=== PATIENT | female | born 1980 | race African-American/Black ===

== ENCOUNTER 2019-12-12 17:07 | Emergency (ER) | payer OTHER, MEDICAID, SELFPAY ==
[2019-12-12 17:09] VITALS: BP 126/82; PULSE 94; RESP 16; TEMP 36.9; O2SAT 100
--- NOTE | 2019-12-12 17:24 | PC.NURSE ---
Pt states she was given amoxicillin a week ago for ear infection and started getting warm, nausea, decreased appetite. PCP told pt to stop taking due to she has allergy to it. Pt states she still has ear pain.
--- NOTE | 2019-12-12 17:49 | ED.EAR ---
HPI - Ear Problem General Chief complaint: Ear Stated complaint: BILATERAL EAR INFECTIONS Time Seen by Provider: 12/12/19 17:15 Source: RN notes reviewed History of Present Illness HPI Narrative: Patient presents emergency department from home for ear pain. Patient states that she had ear pain that began approximately 6 days ago. States the pain is worse on the left with only mild irritation on the right. She states she had gone to urgent care and was diagnosed with an ear infection and started on Augmentin. States that the ear pain continued and is worse in the left ear. She denies any fevers or chills rhinorrhea sore throat cough or any other symptoms. States she called her PCPs office and was told to stop the Augmentin and to go the emergency department for further evaluation. Patient denies any trauma or injury denies any other symptoms at this time Related Data Allergies Allergy/AdvReac Type Severity Reaction Status Date / Time amoxicillin Allergy Weakness Verified 12/12/19 17:13 Review of Systems Review of Systems: Narrative: Gen.: Denies fevers or chills Eyes: Denies eye pain or visual change ENT: Denies congestion Respiratory: Denies shortness of breath or cough CV: Denies chest pain or palpitations GI: Denies abdominal pain nausea, emesis or diarrhea Musculoskeletal: Denies back pain or muscle pain Neuro: Denies headache or numbness Skin: Denies rash Except as documented, all other systems reviewed and negative [facility] Past Medical History Medical History (Updated 12/12/19 @ 17:52 by Reza Garcia DO) Patient denies significant medical history Social History Social History (Updated 12/12/19 @ 17:51 by Reza Garcia DO) Smoking status: Never smoker Gender identity (if verbalized by the patient): Female Exam Narrative: Exam Narrative: APPEARANCE: No acute distress, nontoxic, resting in bed EYES: EOMI HEENT: Normocephalic, atraumatic, right external ear canals normal appearance the right TM is normal appearance, the left ear has a bug in the ear canal that is farmer-like in appearance. Does appear at this time. The TM is normal there is mild erythema of the ear canal around the region of this bug, nares patent oromucosa moist erythema exudate posterior pharynx RESPIRATORY: No respiratory distress Clear to auscultation bilaterally with no rhonchi wheezing or rales. CARDIOVASCULAR: Regular rate and rhythm without murmurs rubs or gallops. ABDOMINAL: Soft, nontender, MUSCULOSKELETAl: Moves all extremities. NEURO: Awake and alert. Following commands, speech normal, no focal deficits SKIN:: Warm, dry. No rashes lesions or abrasions PSYCHIATRIC: Normal affect/mood, Course Course Emergency Course: Procedure note: The left ear was irrigated by myself with warm water the patient's bug was removed in pieces. Following this the ear was reevaluated no further debris of blood material was seen the TM was normal in appearance there is mild erythema of the canal Discussed with patient results of workup and diagnosis. Discussed need for follow-up with primary care, proper use of medication, and reasons to return to the emergency department. Patient understands and agrees to current treatment plan Vital Signs Vital signs: Vital Signs Temperature 98.4 F 12/12/19 17:09 Pulse Rate 94 12/12/19 17:09 Respiratory Rate 16 12/12/19 17:09 Blood Pressure 126/82 12/12/19 17:09 Pulse Oximetry 100 12/12/19 17:09 Temperature 98.4 F 12/12/19 17:09 Pulse Rate 94 12/12/19 17:09 Respiratory Rate 16 12/12/19 17:09 Blood Pressure 126/82 12/12/19 17:09 Pulse Oximetry 100 12/12/19 17:09 Medical Decision Making Vital Signs Vital Signs: Vital Signs Temperature 98.4 F 12/12/19 17:09 Pulse Rate 94 12/12/19 17:09 Respiratory Rate 16 12/12/19 17:09 Blood Pressure 126/82 12/12/19 17:09 Pulse Oximetry 100 12/12/19 17:09 Temperature 98.4 F 12/12/19 17:09 Pulse Ra
== END 2019-12-12 18:01 | disposition home or self-care (01) ==
PROVIDERS: Emergency Provider Emergency Medicine; PCP Physician Assistant
DX: T16.2XXA Foreign body in left ear, initial encounter (principal)
CPT/HCPCS: 99283

== ENCOUNTER 2020-06-07 16:19 | Emergency (ER) | payer OTHER, MEDICAID, SELFPAY ==
[2020-06-07 16:25] VITALS: BP 113/81; PULSE 90; RESP 16; TEMP 35.9; O2SAT 100
[2020-06-07 16:32] VITALS: BP 118/80; PULSE 97; RESP 14; O2SAT 100
[2020-06-07 16:49] LABS: Basophils Percent Auto 0.5 % (0.2-1.2); Eosinophils Absolute Auto 0.1 K/mm3 (0-0.3); Eosinophils Percent Auto 1.5 % (0-4.4); Hematocrit 36.8 % (37.0-47.0); Immature Granulocyte Absolute 0.02 K/mm3 (0.00-0.031); Immature Granulocyte Percent A 0.3 % (0-0.5); Lymphocytes Absolute Auto 3.12 K/mm3 (0.9-3.2); Mean Corpuscular HGB Conc 32.6 g/dl (32-36); Mean Corpuscular Hemoglobin 27.4 pg (26-34); Mean Platelet Volume 8.9 fl (7.4-10.4); Monocytes Absolute Auto 0.4 K/mm3 (0.1-0.6); Monocytes Percent Auto 5.1 % (2.6-8.5); Neutrophils Absolute Auto 4.3 K/mm3 (1.3-6.7); Neutrophils Percent Auto 53.6 % (45.5-73.1); Platelet Count Result 393 k/mm3 (150-375); Red Blood Count 4.38 M/mm3 (4.2-5.4); Red Cell Distribution Width 13.6 % (11.5-14.5)
--- NOTE | 2020-06-07 17:05 | ED.FEMALEGU ---
HPI - Female Genitourinary General Chief complaint: Vaginal Bleeding Stated complaint: on my menstrual cycle, bleeding through pads. Time Seen by Provider: 06/07/20 16:33 Source: patient Limitations: no limitations History of Present Illness HPI Narrative: 40 f c/o heavy vb x 2 days prev menses was wnl and on time does not think she is no pain no ocp/iud/implants Related Data Home Medications Medication Instructions Recorded Confirmed ipratropium bromide [Atrovent HFA] 1 puff INHALATION QID 06/07/20 loratadine [Claritin] 10 mg PO DAILY 06/07/20 Allergies Allergy/AdvReac Type Severity Reaction Status Date / Time amoxicillin Allergy Weakness Verified 12/12/19 17:13 Review of Systems Review of Systems: All systems reviewed & are unremarkable except as noted in HPI and below Constitutional: Constitutional: Denies chills, Denies fatigue, Denies fever(s), Denies headache(s) and Denies weakness Eyes: Eyes: Reports no additional eye complaints and Denies change in vision ENT: Denies headache(s) and Denies epistaxis Cardiovascular: Cardiovascular: Denies chest pain, Denies leg edema, Denies palpitations and Denies dyspnea Respiratory: Respiratory: Denies cough Gastrointestinal: Gastrointestinal: Denies abdominal pain, Denies diarrhea, Denies nausea and Denies vomiting Genitourinary: Genitourinary: Reports abnormal vaginal bleeding, Denies hematuria, Denies urinary frequency, Denies dysuria and Reports vaginal discharge Musculoskeletal: Musculoskeletal: Denies deformity, Denies arthralgias, Denies joint swelling, Denies muscle weakness and Denies numbness Integumentary/Breasts: Skin/Breast: Denies rash and Denies wounds Neurologic: Denies headache(s) and Denies weakness Psychiatric: Psychiatric: Reports no additional psychiatric complaints Endocrine: Endocrine: Denies fatigue and Denies palpitations Hematologic/Lymphatic: Hematologic/Lymphatic: Denies easy bleeding and Denies easy bruising Allergic/Immunologic: Allergic/Immunologic: Denies wheezing PMFSH Past Medical History Medical History (Updated 06/07/20 @ 17:51 by Nirmal Flynn MD) Patient denies significant medical history Social History Social History (Updated 12/12/19 @ 17:51 by Reza Garcia DO) Smoking status: Never smoker Gender identity (if verbalized by the patient): Female Exam Const: General: no acute distress, well developed and awake Nutritional Appearance: well nourished Orientation/consciousness: patient oriented x3 (alert) Limitations: no limitations HENMT: Head: normocephalic and atraumatic Ears: external ears normal General nose exam: No nasal discharge present and no epistaxis Face and sinus: face symmetric Eyes: Conjunctivae: conjunctivae normal Sclera: sclerae normal EOM: EOMs intact bilaterally Neck: Neck: normal visual inspection, supple and no JVD Chest: Chest palpation & inspection: deferred Resp: Effort & Inspection: normal respiratory effort Auscultation: other (BS =) Cardio: Heart sounds: no gallops GI: Inspection: normal to inspection GI Palp: Yes Soft to palpation and No Tenderness to palpation present (GI) : General: Yes no CVA tenderness Speculum Exam - Vagina: vaginal bleeding (small amount, easily clears) Bimanual Exam- Adnexa, other: no masses and no tenderness Other: uterus size grossly wnl Back/Spine/Pelvis: Thoracic/Lumbar Spine: thoracic and lumbar spine normal to inspection Skin: General skin exam: normal color and no rashes or lesions noted Neuro: General: patient oriented x3 (alert) and moves all extremities Cranial nerves: Yes facial symmetry Speech: normal speech Extrem: General: normal to inspection, full ROM and no pedal edema Psych: Affect: normal affect Course Vital Signs Vital signs: Vital Signs Temperature 35.9 C L 06/07/20 16:25 Pulse Rate 90 06/07/20 16:25 Respiratory Rate 16 06/07/20 16:25 Blood Pressure 113
[2020-06-07 17:24] VITALS: BP 115/79; PULSE 72
[2020-06-07 17:27] VITALS: BP 115/86; PULSE 73
[2020-06-07 17:28] VITALS: BP 113/87; PULSE 76
--- NOTE | 2020-06-07 17:49 | PC.NURSE ---
Pelvic and bimanual exam per Dr. Flynn with this RN in attendance. Pt tolerated procedure well.
== END 2020-06-07 18:00 | disposition home or self-care (01) ==
PROVIDERS: Emergency Provider Emergency Medicine; PCP Physician Assistant
DX: N93.9 Abnormal uterine and vaginal bleeding, unspecified (principal)
CPT/HCPCS: 36415; 81025; 85025; 99284

== ENCOUNTER 2021-02-21 23:09 | Emergency (ER) | payer OTHER, SELFPAY ==
--- NOTE | ~2021-02-21 | XR_ITS ---
EXAMINATION: XR chest 2V DATE: 02/21/2021 23:43 INDICATION: Right-sided chest pain. TECHNIQUE: Frontal and lateral views of the chest were obtained. COMPARISON: Chest single view 07/31/2018 FINDINGS: The chest demonstrates clear lungs without pneumonia, pleural effusion, or pneumothorax. Th e heart size is normal. IMPRESSION: 1. No acute cardiopulmonary disease. Reviewed, dictated and finalized at location A.
[2021-02-21 23:15] VITALS: BP 126/70; PULSE 91; RESP 16; TEMP 36.2; O2SAT 100
--- NOTE | 2021-02-21 23:17 | ECG_ITS ---
Measurements Intervals [place] Rate: 89 P: 36 [place]: 145 QRS: 11 QRSD: 104 T: 8 QT: 346 QTc: 422 Interpretive Statements SINUS RHYTHM EARLY PRECORDIAL R/S TRANSITION NONSPECIFIC T-WAVE ABNORMALITY- ANT/INF LEADS BORDERLINE ECG Electronically Signed On 02-22-2021 6:28:51 CDT by Latrell Jamil D.O.
[2021-02-21 23:37] LABS: Basophils Percent Auto 0.1 % (0.2-1.2); Hematocrit 31.5 % (37.0-47.0); Hemoglobin 9.8 g/dL (12.0-15.0); Immature Granulocyte Absolute 0.07 K/mm3 (0.00-0.031); Immature Granulocyte Percent A 0.7 % (0-0.5); Lymphocytes Absolute Auto 1.29 K/mm3 (0.9-3.2); Lymphocytes Percent Auto 13.6 % (18.3-44.2); Mean Corpuscular HGB Conc 31.1 g/dl (32-36); Mean Corpuscular Hemoglobin 23.2 pg (26-34); Mean Corpuscular Volume 74.6 fl (80-100); Mean Platelet Volume 8.6 fl (7.4-10.4); Monocytes Absolute Auto 0.3 K/mm3 (0.1-0.6); Monocytes Percent Auto 3.2 % (2.6-8.5); Neutrophils Absolute Auto 7.8 K/mm3 (1.3-6.7); Neutrophils Percent Auto 82.4 % (45.5-73.1); Platelet Count Result 539 k/mm3 (150-375); Red Blood Count 4.22 M/mm3 (4.2-5.4); Red Cell Distribution Width 16.1 % (11.5-14.5); White Blood Count 9.5 K/mm3 (4.5-10.0)
[2021-02-21 23:47] LABS: Anion Gap 10 mmol/L (8-16); Blood Urea Nitrogen 10 mg/dL (7-17); Calcium 9.7 mg/dL (8.4-10.2); Carbon Dioxide 26 mmol/L (22-30); Chloride 104 mmol/L (98-107); Estimated Glomerular Filt Rate > 60; Glucose 144 mg/dL (65-110); INR 0.9; Prothrombin Time 11.8 Seconds (11.1-14.7); Sodium 140 mmol/L (137-145)
[2021-02-21 23:48] LABS: Partial Thromboplastin Time 24.9 SECONDS (22.3-36.8)
[2021-02-22 00:02] LABS: Troponin I < 0.012 ng/mL (0.000-0.034)
[2021-02-22 01:21] VITALS: PULSE 87; O2SAT 100
[2021-02-22 01:24] VITALS: BP 112/74; PULSE 103; RESP 17; TEMP 36.7; O2SAT 100
[2021-02-22] MEDS: ASPIRIN 81 MG CHEWABLE TABLET 324 MG PO (01:28)
[2021-02-22 02:01] VITALS: BP 117/75; PULSE 78; RESP 18; O2SAT 100
[2021-02-22 02:16] VITALS: BP 115/83; PULSE 82; RESP 19; O2SAT 100
[2021-02-22 02:42] LABS: Troponin I < 0.012 ng/mL (0.000-0.034)
--- NOTE | 2021-02-22 02:43 | ED.GENADULT ---
HPI - General Adult General Chief complaint: Chest Pain Stated complaint: back pain Time Seen by Provider: 02/22/21 01:45 History of Present Illness HPI narrative: Patient 40-year-old female presents emerged part with chief complaint of chest pain patient reports that the pain is a pressure-like sensation but also reports there is a sharp component patient reports is worse with deep breath and worse with movement. The patient reports recently she was seen in urgent care after she was having pain in her ears started on a course of prednisone and also a course of an antibiotic. Patient reports that she has been taking steroids she has become jittery and reports that it is difficult to sleep at night. Related Data Home Medications Medication Instructions Recorded Confirmed ipratropium bromide [Atrovent HFA] 1 puff INHALATION QID 06/07/20 loratadine [Claritin] 10 mg PO DAILY 06/07/20 Allergies Allergy/AdvReac Type Severity Reaction Status Date / Time amoxicillin Allergy Weakness Verified 02/22/21 01:29 peanut Allergy Hives Verified 02/22/21 01:29 Review of Systems Review of Systems: A 10 system review of systems was completed on the patient and is negative except for what is stated in the HPI. Nursing and ancillary documentation was reviewed. [facility] Past Medical History Medical History Patient denies significant medical history Social History Social History Smoking status: Never smoker Gender identity (if verbalized by the patient): Female Exam Narrative: GENERAL: Well-appearing, well-nourished, and in no acute distress. HEAD: Normocephalic, atraumatic. EYES: PERRLA and EOMI. ENT: Nares clear, no rhinorrhea or epistaxis. Mucous membranes moist. NECK: Supple. CHEST: Clear to auscultation. No respiratory distress. Chest wall is tender to palpation in the sternal border HEART: Regular rate and rhythm. No murmur heard. Normal peripheral pulses. ABDOMEN: Soft, nontender, nondistended, normal active bowel sounds. EXTREMITIES: Normal range of motion. No edema. SKIN: Warm, dry, no rash. NEURO: No focal deficits. Alert and oriented x3. PSYCH: Normal mood and affect. Course Vital Signs Vital signs: Vital Signs Temperature 36.2 C L 02/21/21 23:15 Pulse Rate 91 02/21/21 23:15 Respiratory Rate 16 02/21/21 23:15 Blood Pressure 126/70 02/21/21 23:15 Pulse Oximetry 100 02/21/21 23:15 Temperature 36.7 C 02/22/21 01:24 Pulse Rate 103 H 02/22/21 01:24 Respiratory Rate 17 02/22/21 01:24 Blood Pressure 112/74 02/22/21 01:24 Pulse Oximetry 100 02/22/21 01:24 Medical Decision Making Vital Signs Vital Signs: Vital Signs Temperature 36.2 C L 02/21/21 23:15 Pulse Rate 91 02/21/21 23:15 Respiratory Rate 16 02/21/21 23:15 Blood Pressure 126/70 02/21/21 23:15 Pulse Oximetry 100 02/21/21 23:15 Temperature 36.7 C 02/22/21 01:24 Pulse Rate 103 H 02/22/21 01:24 Respiratory Rate 17 02/22/21 01:24 Blood Pressure 112/74 02/22/21 01:24 Pulse Oximetry 100 02/22/21 01:24 Lab Data Result diagrams: 02/21/21 23:27 02/21/21 23:27 Labs: Lab Results 02/21/21 02/21/21 02/21/21 Range/Units 23:27 23:27 23:27 WBC 9.5 (4.5-10.0) K/mm3 RBC 4.22 (4.2-5.4) M/mm3 Hgb 9.8 L (12.0-15.0) g/dL Hct 31.5 L (37.0-47.0) % MCV 74.6 L (80-100) fl MCH 23.2 L (26-34) pg MCHC 31.1 L (32-36) g/dl RDW 16.1 H (11.5-14.5) % Plt Count 539 H (150-375) k/mm3 MPV 8.6 (7.4-10.4) fl Immature Gran % (Auto) 0.7 H (0-0.5) % Neut % (Auto) 82.4 H (45.5-73.1) % Lymph % (Auto) 13.6 L (18.3-44.2) % [place] % (Auto) 3.2 (2.6-8.5) % Eos % (Auto) 0.0 (0-4.4) % Baso % (Auto) 0.1 L (0.2-1.2) % Lymph # (Auto) 1.29 (0.9-3.2) K/mm3 [place] # (Auto) 0.3 (0.
[2021-02-22 02:50] VITALS: BP 117/81; PULSE 79; RESP 17; O2SAT 100
== END 2021-02-22 02:52 | disposition home or self-care (01) ==
PROVIDERS: Emergency Provider Emergency Medicine; PCP Physician Assistant
DX: M94.0 Chondrocostal junction syndrome [Tietze] (principal); R94.31 Abnormal electrocardiogram [ECG] [EKG]
CPT/HCPCS: 36415; 71046; 80048; 84484; 85025; 85610; 85730; 93005; 99284; A9270

== ENCOUNTER 2021-04-18 08:00 | Outpatient (RCR) | payer OTHER, SELFPAY ==
--- NOTE | 2021-03-23 13:50 | PTOPEVAL ---
Thank you for referring Natalie Gillette to [facility].? The patient is scheduled to be seen for therapy? 2x/week for 8 weeks. Please review, sign, date and return this plan of care KARLENE. I agree with and certify that the following plan of care is medically necessary. Referring Physician Date Attending Provider: Boogie Cavazos, PA Diagnosis thoracic back pain Onset 2 months Cause unknow Additional Evaluation Detail history of falling down steps 06/11 with rib fracture Subjective Information She reports progression of mid Query Text:As Reported By Patient/ back/lateral flank pain for Family the past year with increased symptoms for during the past 2 months. She reports limitations with reaching, lifting, sleeping, walking, standing and sitting due to pain. She is unable to sleep on right side due to pain. 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 She is not required to perform a lot of lifting normally. Pain Assessment Right Back Reported Pain Level 7 Pain Description Aching,Burning,Radiating, Tender on Palpation Pain Radiation Right Arm Pain Frequency Chronic,Continuous Lowest Pain Intensity 7 Greatest Pain Intensity 10 Pain Aggravating Factors ADL's,Bending,Exercise/ Activity,Lifting,Palpation, Sitting,Stair Climbing,Walking ,Weight Bearing/Standing Pain Behaviors Guarding,Restless Cervical and Lumbar ROM Lumbar ROM Lumbar Flexion Active Floor:Hands to: Lumbar Comments painful trunk flex in seated position trunk ext lateral shift to right 50% trunk rotation pain with trunk motions Upper Extremity Range of Motion General Upper Extremity Range of Motion Reason Not Measured WNL/Left,WNL/Right Lower Extremity Range of Motion General Lower Extremity Range of Motion Reason Not Measured WNL/Left,WNL/Right Cervical and Lumbar Muscle Testing Lumbar Strength Lumbar Functional Strength Comments unable to maintain trunk in midline with seated marching and single leg stance Lower Extremity Muscle Strength Testing Hip Strength Right Hip F
--- NOTE | 2021-03-30 08:39 | PCPTNOTE ---
Patient did not show up for scheduled appointment this date.
--- NOTE | 2021-04-01 09:17 | PCPTNOTE ---
Patient did not show up for scheduled appointment this date. Called & patient stated she just went straight home from work & forgot.
--- NOTE | 2021-04-13 10:47 | PCPTNOTE ---
Patient did not show up for scheduled appointment this date. Attempted to call pt regarding her next visit, but no answer reservations specialist. This is her 3rd NS. If she does not show for her appt on 04/18 will DC due to repeated NS.
--- NOTE | 2021-04-20 08:22 | PCPTNOTE ---
Patient did not show up for scheduled appointment this date. Called and had to leave a message.
--- NOTE | 2021-04-28 11:52 | PCPTNOTE ---
Contacted pt who requested her re-eval be rescheduled. Next open appt was for May 16.
--- NOTE | 2021-05-16 12:44 | PCPTNOTE ---
Patient did not show up for scheduled appointment this date. Contact pt regarding her no show today, states she forgot. Pt has improved symptoms with her HEP. Recommended she cont with HEP and f/u with her MD as needed.
--- NOTE | 2021-05-16 12:45 | PCPTNOTE ---
Admitting Provider: Attending Provider: Boogie Cavazos, SARA Patient:Natalie Gillette Date of :1980 Physical Therapy Discharge Summary Patient has not returned for any further treatments since 04/18/2021, therefore she will be discharged at this time. Patient?s initial visit was on 03/23/2021 12:30 and she had a total of 5 visits with 7 no show/cancelled visits. The goals have been not met due to limited attendance of therapy. She has been provided home exercises to continue at home for her symptoms. Thank you for referring this patient to [facility]. Please review, sign, date and return this discharge summary KARLENE. I have been updated about the patient's current status and I agree with discharge from the above service at this time. Referring Physician Date
== END 2021-05-16 15:28 | disposition home or self-care (01) ==
LOC: ANHPT 08:00
PROVIDERS: PCP Physician Assistant; Visit Provider Physician Assistant
DX: M54.6 Pain in thoracic spine (principal)
CPT/HCPCS: 97014; 97110; 97140; 97162; G0283

== ENCOUNTER 2023-04-17 04:07 | Emergency (ER) | payer OTHER, SELFPAY ==
--- NOTE | ~2023-04-17 | XR_ITS ---
EXAMINATION: XR chest 2V DATE: 04/17/2023 04:53 INDICATION: Cough. Chest pain. TECHNIQUE: Frontal and lateral views of the chest were obtained. COMPARISON: Chest 2 views 02/21/2021 FINDINGS: There is no pneumonia, pleural effusion, or pneumothorax. Cardiomegaly is noted. There is m ild chronic anterior wedging of a midthoracic vertebral body. IMPRESSION: 1. Cardiomegaly. Reviewed, dictated and finalized at location A. IMPRESSION: 1. Cardiomegaly.
[2023-04-17 04:09] VITALS: BP 111/85; PULSE 93; RESP 16; TEMP 36.3; O2SAT 100
--- NOTE | 2023-04-17 04:32 | ECG_ITS ---
Measurements Intervals [place] Rate: 87 P: 14 [place]: 125 QRS: -1 QRSD: 83 T: -4 QT: 344 QTc: 414 Interpretive Statements SINUS RHYTHM LOW QRS VOLTAGE IN PRECORDIAL LEADS T WAVE ABNORMALITY- CONSIDER ANTERIOR ISCHEMIA ABNORMAL ECG COMPARED TO ECG 02/21/2021 23:22:50 NO SIGNIFICANT CHANGES Electronically Signed On 04-17-2023 6:35:40 CDT by Latrell Jamil D.O.
--- NOTE | 2023-04-17 04:57 | ED.GENADULT ---
HPI - General Adult General Chief complaint: Upper Respiratory Infection Stated complaint: Chest pain from coughing, sore throat, runny nose Time Seen by Provider: 04/17/23 04:25 History of Present Illness HPI narrative: Patient is a 42-year-old female who presents the emergency department with chief complaint of runny nose cough sore throat chest pain with coughing since when she received a flu shot. Patient states that she has history of asthma and reports that she is also had some shortness of breath for some period of time and is currently wearing an event monitor to evaluate for possible dysrhythmia patient reports no prior history of congestive heart failure reports no prior cardiac disease and reports that she had a nonproductive cough with this. The patient reports that the symptoms started after receiving a influenza vaccine Related Data Home Medications Medication Instructions Recorded Confirmed ipratropium bromide 17 1 puff inhalation QID 06/07/20 mcg/actuation HFA aerosol inhaler (Atrovent HFA) loratadine 10 mg tablet (Claritin) 10 mg PO DAILY 06/07/20 Allergies Allergy/AdvReac Type Severity Reaction Status Date / Time amoxicillin Allergy Weakness Verified 02/22/21 01:29 peanut Allergy Hives Verified 02/22/21 01:29 Review of Systems Review of Systems: A 10 system review of systems was completed on the patient and is negative except for what is stated in the HPI. Nursing and ancillary documentation was reviewed. PMFSH Past Medical History Medical History Patient denies significant medical history Social History Social History Smoking status: Never smoker Gender identity (if verbalized by the patient): Female Exam Narrative: GENERAL: Well-appearing, well-nourished, and in no acute distress. HEAD: Normocephalic, atraumatic. EYES: PERRLA and EOMI. ENT: Nares clear, no rhinorrhea or epistaxis. Mucous membranes moist. NECK: Supple. CHEST: Clear to auscultation. No respiratory distress. HEART: Regular rate and rhythm. No murmur heard. Normal peripheral pulses. ABDOMEN: Soft, nontender, nondistended, normal active bowel sounds. EXTREMITIES: Normal range of motion. No edema. SKIN: Warm, dry, no rash. NEURO: No focal deficits. Alert and oriented x3. PSYCH: Normal mood and affect. Course Course Emergency Course: Differential diagnosis includes viral syndrome, pneumothorax, strep pharyngitis, pneumonia, ACS EKG showed no acute ischemic changes Chest x-ray showed no pneumothorax Strep was negative COVID was positive influenza was negative Given the patient does have prior risk factors of asthma the patient was offered a prescription for Paxlovid and the patient has excepted Vital Signs Vital signs: Vital Signs Temperature 36.3 C L 04/17/23 04:09 Pulse Rate 93 04/17/23 04:09 Respiratory Rate 16 04/17/23 04:09 Blood Pressure 111/85 04/17/23 04:09 Pulse Oximetry 100 04/17/23 04:09 Oxygen Delivery Room Air 04/17/23 04:09 Temperature 36.3 C L 04/17/23 04:09 Pulse Rate 93 04/17/23 04:09 Respiratory Rate 16 04/17/23 04:09 Blood Pressure 111/85 04/17/23 04:09 Pulse Oximetry 100 04/17/23 04:09 Oxygen Delivery Room Air 04/17/23 04:22 Medical Decision Making MDM Narrative Medical decision making narrative: Differential diagnosis includes upper respiratory infection, pneumothorax, strep, dysrhythmia, EKG was obtained which showed sinus rhythm rate of [address] elevation or ST depression Chest x-ray showed no widened mediastinum no pneumothorax Vital Signs Vital Signs: Vital Signs Temperature 36.3 C L 04/17/23 04:09 Pulse Rate 93 04/17/23 04:09 Respiratory Rate 16 04/17/23 04:09 Blood Pressure 111/85 04/17/23 04:09 Pulse Oximetry 100 04/17/23 04:09 Oxygen Delivery Room
[2023-04-17 04:58] LABS: Strep Group A RT-PCR NOT DETECTED (Negative)
[2023-04-17 05:09] LABS: Influenza A QL RT-PCR Negative (Negative); Influenza B QL RT-PCR Negative (Negative); RSV RNA, RT-PCR Negative (Negative); SARS-CoV-2 RNA PCR Positive (Negative)
== END 2023-04-17 05:23 | disposition home or self-care (01) ==
PROVIDERS: Emergency Provider Emergency Medicine; PCP Physician Assistant
DX: U07.1 COVID-19 (principal); Z79.51 Long term (current) use of inhaled steroids
CPT/HCPCS: 71046; 87637; 87651; 93005; 99283

== ENCOUNTER 2023-06-15 10:30 | Outpatient (RCR) | payer OTHER, SELFPAY ==
--- NOTE | 2023-05-28 11:44 | PTOPEVAL1 ---
Assessment and note entered by Zoran Lopez, PT, DPT Evaluation Information Assessment Status Evaluation Diagnosis upper thoracic pain and lumbar pain Subjective Information Pt states one night about 7 months she was at work and was lifting something heavy and her back has been hurting every since. She states she will take a Tylenol and this will help for a little bit. Pt also reports R arm pain and numbness, that has been going on for over a year. 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 Reported Pain Level Pain Score 7,7: Self Report Assessment PT Clinical Summary Natalie presents to therapy today for her initial evaluation with a diagnosis of lower back pain and cervical radiculopathy. Pt demonstrates good strength throughout her armando UEs and LEs. She demonstrates pain with passive hip flexion and with lumbar paraspinal muscle palpation. She demonstrates poor body mechanics with functional movement mechanics needing for work and household ADLs. Skilled therapy services are indicated to manage pain, improve functional movement mechanics , minimize impairment, and to return to PLOF. Oswestry: 32/50, 64% disability Plan of Care Interventions Electrical Stimulation,Gait Training,Hot Pack/Cold Pack,Manual Therapy,Neuro Re-education,Patient/ Caregiver Educati,Therapeutic Activities, Therapeutic Exercise PT Services Indicated Yes These treatments will address the objective and functional deficits as defined above. The patient will be advanced safely and appropriately in order for the patient to progress towards his/her prior level of function. Additional exercises will be introduced and as well as a comprehensive home exercise program upon discharge, if needed, ?to ensure carryover of functional gains achieved in the clinic. This treatment plan has been reviewed and agreement upon by the patient.
--- NOTE | 2023-05-28 11:44 | OPREHPOC ---
Outpatient Therapy Plan of Care This is a Multidisciplinary Plan of Care that may contain components documented by all disciplines (PT, OT, and ST.) PT Problem 1 PT Problem #1 Knowledge Deficit PT Goal 1 Goal Pt to be IND with issued HEP Target Visit 8 PT Problem 2 PT Problem #2 Pain PT Goal 1 Goal Pt to report pain no greater than 3/10 in the last week Target Visit 8 PT Goal 2 Goal Pt to report 75% improvement in overall symptoms. PT Problem 3 PT Problem #3 Impaired Functional Mobil PT Goal 1 Goal Pt to demonstrate a 20lb lift and carry without compensations. Target Visit 8 PT Goal 2 Goal Pt to demonstrate good body mechanics with functional cleaning for work. Target Visit 8 PT Problem 4 PT Problem #4 Impaired Functional Mobil PT Goal 1 Goal Pt to improve Oswestry score from 32/50 to 15/50. Target Visit 8
--- NOTE | 2023-05-31 09:17 | PCPTNOTE ---
Patient request to cancel appointment.
--- NOTE | 2023-06-06 10:07 | PCPTNOTE ---
Adding mechanical tractions to pt current plan of care. Zoran Lopez PT, DPT, 06/06/23
--- NOTE | 2023-06-12 10:07 | PCPTNOTE ---
Patient called to cancel due to work schedule.
--- NOTE | 2023-06-19 11:20 | PCPTNOTE ---
Patient did not show up for scheduled appointment this date. Called and LVM with instructions to reschedule.
--- NOTE | 2023-06-25 10:25 | PTOPDC ---
Assessment and note entered by Zoran Lopez, PT, DPT Evaluation Information Assessment Status Discharge - Pt Not Present Diagnosis upper thoracic pain and lumbar pain Subjective Information Pt did not show up to her scheduled appointment this date. This is her third consecutive no show without communication to the office. She will be discharged at this time per the attendance policy. Assessment PT Clinical Summary Natalie completed 4 visits of skilled therapy from 05/28/23 to 06/21/23. She cancelled 2 appointments, and no call no showed to 3 appointments. If she needs additional therapy she will need a new order . Called and LVM for pt with this information. Plan of Care PT Services Indicated Yes
== END 2023-06-25 15:33 | disposition home or self-care (01) ==
LOC: ANHGOSHPT 10:30
PROVIDERS: PCP Physician Assistant; Visit Provider Physician Assistant
DX: M54.6 Pain in thoracic spine (principal)
CPT/HCPCS: 97012; 97014; 97110; 97140; 97161; 97530; 99199; G0283

== ENCOUNTER 2025-02-27 11:44 | Observation (INO) | payer OTHER, SELFPAY ==
[2025-02-27] VITALS (43 sets, daily range): BP systolic 97–153; BP diastolic 59–136; PULSE 74–108; RESP 14–25; TEMP 36.8–36.9; O2SAT 100; BMI 36.8
--- NOTE | ~2025-02-27 | CT_ITS ---
EXAMINATION: CTA chest PE abdomen pel DATE: 02/27/2025 14:20 CDT INDICATION: Right-sided chest pain. Elevated d-dimer. TECHNIQUE: Computed tomographic angiography (CTA) of the chest, abdomen, and pelvis was performed wit hout and with 100 mL Omnipaque-350 intravenous contrast. The dose-length product was 1101.71 mGy-cm. Maximum intensity projection 3D-reconstructions of the aorta and other arteries were constructed by candis raymond technologist on a separate workstation. Automated exposure control and iterative reconstruction te chnique were employed. COMPARISON: None. FINDINGS: CHEST CTA: Study technically limited due to contrast bolus timing and motion. There are filling defects in right upper lobe segmental pulmonary arteries, suspicious for pulmonary embolism, small thrombus burden. N o thoracic lymphadenopathy. Heart size normal. No significant pleural or pericardial effusion. No helen picious pulmonary nodules or masses. ABDOMEN AND PELVIS CTA: Fatty infiltration of the liver. The spleen, pancreas, adrenal glands are unremarkable. There are non obstructing bilateral renal stones. Mild dilation of the right renal pelvis. No obstructing stone or mass identified. There are probable fibroid changes in the uterus with mass effect on the endometrium . Nonobstructive bowel gas pattern. No abnormal pelvic masses or fluid collections. IMPRESSION: 1. Small filling defects right upper lobe segmental pulmonary arteries, suspicious for pulmonary embo lism, small thrombus burden. 2: Enlarged fibroid uterus. Reviewed, dictated and finalized at location A. IMPRESSION: 1. Small filling defects right upper lobe segmental pulmonary arteries, suspici ous for pulmonary embolism, small thrombus burden. 2: Enlarged fibroid uterus.
--- NOTE | ~2025-02-27 | XR_ITS ---
EXAMINATION: XR chest 2V 02/27/2025 12:25 INDICATION: Chest pain PROCEDURE: 2 view chest COMPARISON: 08/08/2023 FINDINGS: The lungs are clear. The cardiomediastinal silhouette is within normal limits. There are no pleural effusions. There is no pneumothorax suspected. IMPRESSION: 1: NO ACUTE CARDIOPULMONARY DISEASE. Reviewed, dictated and finalized at location A.
--- NOTE | ~2025-02-27 | US_ITS ---
EXAMINATION: US venous doppler [facility] DATE: 03/01/2025 16:21 INDICATION: diagnosed PE, on anticoagulation. TECHNIQUE: Grayscale images without and with compression and Doppler images of the bilateral lower ex tremity veins were obtained. COMPARISON: None FINDINGS: The right common femoral vein, profunda (deep) femoral vein, femoral vein, popliteal vein, peroneal v ein, posterior tibial veins, gastrocnemius vein, and greater saphenous vein are patent. The left common femoral vein, profunda (deep) femoral vein, femoral vein, popliteal vein, peroneal v ein, posterior tibial veins, gastrocnemius vein, and greater saphenous vein are patent. IMPRESSION: Patent bilateral lower extremity veins. No evidence of deep venous thrombosis. Reviewed, dictated and finalized at location K.
--- OUTSIDE RECORDS SUMMARY | 2025-02-27 11:47 | XMS_ITS | Encounter Summary ---
Author Organization [facility] Address [address] [place] [address] Phone Care Team Providers Care Director Meetings Name Role Phone CavazosBoogie Primary Care Provider [phone] Marc Mcnair MD Unavailable Rachel Basurto MD Unavailable Encounter Details Date Type Department Care Team (Late Contact Info) Description 06/27/2024 Telephone [facility] [address] [phone] Marc Mcnair MD [address] [facility] [place] [address] [address] Social History Tobacco Use Types Packs/Day Years Used Date Smoking Tobacco: Never Smokeless Tobacco: Never Alcohol Use Standard Drinks/Week Comments Never 0 (1 standard drink = 0.6 oz pur e alcohol) PHQ-2 Answer Date Recorded Total Score - Questions 1-9 0 07/23 Comments Unknown Sex and Gender Information Value Date Recorded Sex Assigned at Not on file Legal Sex Female 4:41 PM CDT Gender Identity Not on file Sexual Orientation Not on file documented as of this encounter Plan of Treatment Upcoming Encounters Date Type Department Care Team (Late Contact Info) Description 03/12/2025 1:00 PM CDT Clinical Support [facility] [address] [phone] Nurse, [facility] 04/23/2025 1:00 PM CDT Office Visit [facility] [address] [place] [phone] Marc Mcnair MD [facility] 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
--- OUTSIDE RECORDS SUMMARY | 2025-02-27 11:47 | XMS_ITS | Clinical Summary ---
Author Organization [facility] Address [address] [place] [address] Care Team Providers Care Naval Architect Specialist Name Role Phone Edie Foster NP Primary Care Provider [phone] Allergies Active Allergy Reactions Criticality Noted Date Comments Amoxicillin Hives Medium 03/27/2022 Diphenhydramine Hives Medium 03/03/2024 Doxycycline Hcl Hives Medium 03/27/2022 Medications zolpidem (AMBIEN) 5 mg tablet Take 1 tablet (5 mg total) by mouth nightly 2 Active omeprazole (PriLOSEC) 40 mg capsule Take by mouth daily Active nitrofurantoin monohydrate (MACROBID) 100 mg capsule Take 1 capsule (100 mg total) by mouth 2 (two) times a day 4 Active neomycin-polymy jennifer-HC (CORTISPORIN) 3.5-10,000-1 mg/mL-unit/mL-% otic suspension Acti ve ipratropium (Atrovent HFA) 17 mcg/actuation inhaler inhale 2 puff by inhalation route 4 times every day Active fluticasone propionate (FLONASE) 50 mcg/actuation nasal spray Administer 2 sprays into affected nostril(s) daily 1 Active fluticasone propion-salmete roL (ADVAIR DISKUS) 500-50 mcg/dose diskus inhaler INHALE 1 (ONE) PUFF BY MOUTH 2 TIMES DAILY Active FLUoxetine (PROzac) 40 mg capsule Take by mouth daily Active ferrous sulfate 325 mg (65 mg of elemental iron) tablet Take 1 tablet (325 mg total) by mouth 9 Active ergocalciferol (VITAMIN D) 50,000 unit capsule Take 1 capsule (50,000 Units total) by mouth once a week Active desloratadine (CLARINEX ORAL) Acti ve cholecalciferol (VITAMIN D-3) 50,000 unit capsule TAKE 1 CAPSULE BY MOUTH ONCE A WEEK FOR 8 DOSES 2 Active ascorbic acid with tammy hips 500 mg tablet TAKE 1 TABLET BY MOUTH ONCE DAILY AT SAME TIME FERROUS SULFATE (IRON) TABLET 4 Active amLODIPine (NORVASC) 5 mg tablet 2 Active albuterol HFA (PROVENTIL HFA,VENTOLIN HFA,PROAIR HFA) 90 mcg/actuation inhaler albuterol sulfate HFA 90 mcg/actuation aerosol inhaler INHALE 2 (TWO) PUFFS BY MOUTH EVERY 4 HOURS NEEDED FOR SHORTNESS OF BREATH, WHEEZING OR COUGH 7 Active loratadine (CLARITIN) 10 mg tablet Take 1 tablet (10 mg total) by mouth daily Active ascorbic acid (ascorbic acid with tammy hips) 500 mg tablet,chewable Acti ve bisacodyl EC (DULCOLAX EC) 5 mg EC tabletIndicatio ns:constipation Take 1 tablet (5 mg total) by mouth daily as needed for constipation 8 tablet 5 Active Active Problems Problem Noted Date Diagnosed Date History of colon polyps 06/10/2024 Abdominal pain 01/17/2024 Assessment & Plan (01/17/2024 9:12 AM CDT): Patient was seen in the ER June 2023 for chest pain radiating to the right upper quadrant. Cardiac workup was negative. Labs were unremarkable with the exception of anemia with a hemoglobin 11.7. CT scan with no acute findings. Ultrasound December 2023 with normal gallbladder. Continues to have upper abdominal pain, worse with meals - pizza, spices. Takes omeprazole 40mg po daily, but still has symptoms. -increase omeprazole to 40 mg p.o. b.i.d. -avoid NSAIDs -we will order HIDA scan -schedule EGD -The risks (risks of bleeding, infection, perforation requiring surgery, missed polyps/cancer, dental injury, aspiration pneumonia, anesthesia complications such as drug reaction and cardiopulmonary complications including rare chance of ), benefits, and alternatives of the planned procedure were explained to the patient who understands and consents to having procedure done. Anemia 01/17/2024 Assessment & Plan (01/17/2024 9:12 AM CDT): Labs June of 2023 with a hemoglobin 11.7. Patient denies any overt GI bleeding. -schedule colonoscopy same day as EGD -The risks (risks of bleeding, infection, perforation requiring surgery, missed polyps/cancer, dental injury, aspiration pneumonia, anesthesia complications such as drug reaction and cardiopulmonary complications including rare chance of ), benefits, and alternatives of the planned procedure were explained to the patient who understands and consents to having procedure done. Immunizations Immunization Administration Dates Next Due Moderna SARS-CoV-2 Monovalent Vaccination (12+ Y RS) 07/11/2021,06/11/2021 Pneumococcal Polysaccharide PPV23 11/27/2021 Tdap 08/01/2019 Surgical History Surgery Date Site/Laterality Comments WISDOM TOOTH EXTRACTION SECTION x4 Medical History Medical History Date Comments Asthma Hypertension GERD (gastroesophageal reflux disease) Family History Medical History Relation Name Comments Breast cancer Neg Hx Ovarian cancer Neg Hx Thyroid cancer Neg Hx Social History Tobacco Use Types Packs/Day Years Used Date Smoking Tobacco: Never Smokeless Tobacco: Never Tobacco Cessation:Counseling Given: Not Answered Alcohol Use Standard Drinks/Week Comments Never 0 (1 standard drink = 0.6 oz pur e alcohol) AUDIT-C Answer Date Recorded Q1: How often do you have a drink containing alcohol? Never 07/24/2024 Q2: How many drinks containi ng alcohol do you have on a typical day when you are drinking? Patient does not drink Q3: How often do you have si x or more drinks on one occasion? Never 07/24/2024 Personal Safety Answer Date Recorded Have you ever been in or are you currently in a harmful physical or emotional relationship or is someone making you feel afraid or unsafe? Denies 06/10/2024 Comments No Sex and Gender Information Value Date Recorded Sex Assigned at Not on file Legal Sex Female 6:24 PM PLASTER MOLD MAKER Gender Identity Not on file Sexual Orientation Not on file Obstetrics History Para Term AB IAB SAB Ectopic Multiple Livin g Live Births 4 4 4 Date Outcome GA Total Labor Labor/2nd/3rd Weight Sex Type Anes PTL Porsha A1 A5 Name Clin Term Term Term Term Last Filed Vital Signs Vital Sign Reading Time Taken Comments Blood Pressure 112/80 08/04/2024 10:56 AM PLASTER MOLD MAKER Pulse 88 08/04/2024 10:56 AM PLASTER MOLD MAKER Temperature 36.2 C (97.1 F) 08/04/2024 10:56 AM PLASTER MOLD MAKER Respiratory Rate 16 08/04/2024 10:5 6 AM PLASTER MOLD MAKER Oxygen Saturation 100% 08/04/2024 10: 56 AM PLASTER MOLD MAKER Inhaled Oxygen Concentration - - Weight 81.6 kg (179 lb 14.3 oz) 06/10/2024 9:56 AM PLASTER MOLD MAKER Height 152.4 cm (5') 06/10/2024 9:56 AM PLASTER MOLD MAKER Body Mass Index 35.13 06/10/2024 9:56 AM PLASTER MOLD MAKER Plan of Treatment Health Maintenance Due Date Last Done Comments Cervical Cancer Screening 1982 Depression Screening 1982 Hepatitis C Screening 1982 Varicella Vaccines (1 of 2 - 13+ 2-dose series) 1995 Regular Well Visit/Exam 18-64 2000 HPV Vaccines (1 - 3-dose SCD M series) 2009 Pneumococcal vaccine <65 (2 of 2 - PCV) 11/27/2022 11/27/2021 Covid-19 Vaccine (5 - 2023-2 5 season) 2024 09/06/2021, 07/11/2021, 06/11/2021, Additional history exists Influenza Vaccine (#1) 2025 3, 06/28/2022, 07/27/2021, Additional history exists Breast Cancer Screening-Mammogram 09/10/2025 09/10/2024, 01/10/2023, 01/10/2023 DTaP/Tdap/Td Vaccine (2 - Td or Tdap) 08/01/2029 08/01/2019 Hepatitis B Screening Completed 08/20/2023 Procedures Procedure Name Priority Date/Time Associated Diagnosis Comments SCREENING MAMMOGRAM BILATERAL W JOCELIN Schedule Routine, Read Routine (OP Routine) 09/10/2024 7:34 AM PLASTER MOLD MAKER Encounter for screening mammogram for malignant neoplasm of breast from Last 3 Months or Most Recently Relevant to Health Maintenance Results * Screening Mammogram Bilateral W Jocelin (09/10/2024 7:34 AM PLASTER MOLD MAKER) Anatomical Region Laterality Modality Breast Bilateral Mammography Impressions 09/10/2024 8:17 AM PLASTER MOLD MAKER BI-RADS ATLAS category (overall): 2 - Benign There is no mammographic evidence of malignancy. A 1 year screening mammogram is recommended. The patient has been or will be contacted. We recommend annual screening mammography for women at average risk of breast cancer beginning at age 40, based on guidelines of the [employer] (ACR Practice Parameter for the Performance of Screening and Diagnostic Mammography) and [employer] [employer]. For women with and elevated risk of breast cancer, please refer to the ACR Practice Parameter for specific screening recommendations. The patient will be entered into a reminder system with a target due date of 1 year for her next screening exam. Narrative 09/10/2024 8:17 AM PLASTER MOLD MAKER Screening Mammogram Bilateral W Jocelin: 09/10/24 The study was acquired using full field digital technology and interpreted from soft copy. 2D digital mammographic views, as well as 3D digital tomosynthesis were performed in the CC and MLO projections. This study was resulted using Computer-Aided Detection (CAD). CLINICAL: Encounter for screening mammogram for malignant neoplasm of breast. No relevant medical history has been documented for this patient. History of breast cancer in Neg Hx. COMPARISONS: 03/05/2023 Diagnostic Mammogram Right W Jocelin 01/10/2023 Screening Mammogram Bilateral W Jocelin BREAST TISSUE: The breasts are heterogeneously dense, which may obscure small masses. FINDINGS: Multiple benign appearing masses in both breasts have not suspiciously changed. There is no new suspicious finding in either breast on mammogram. Edie Foster NP IMG MAMMO PROCEDURES Final Re sult from Last 3 Months or Most Recently Relevant to Health Maintenance Insurance [facility] Care Teams Naval Architect Specialist Relationship Specialty Start Date End Date Edie Foster NP [address] [place] [id number] PCP - General Nurse Practitioner 06/10/24
--- OUTSIDE RECORDS SUMMARY | 2025-02-27 11:47 | XMS_ITS | Clinical Summary ---
Author Organization [facility] Address [address] [place] [address] Care Team Providers Care Paralegal Instructor Name Role Phone Boogie Cavazos Primary Care Provider [phone] Source Comments [facility],non-owned Affiliates and Associated Physician Practices is amultiple site organization consisting of ambulatory clinics and hospital sitesin [place], [place], [place] and [place]. This disclosure is being madepursuant to the Care Everywhere program and may not contain all information available regarding this patient. Last updated 18.[facility] Allergies Active Allergy Reactions Criticality Noted Date Comments Amoxicillin Urticaria Medium 11/26/2020 Doxycycline Headache,Rash Medium 12/02/2020 Montelukast Other 11/10/2021 Depression Medications * Be aware that medications may not be up to date on this document. Alwaysverify current medications with the patient. albuterol HFA (Ventolin HFA) 108 (90 Base) MCG/ACT inhalerIndication s:Moderate persistent asthma without complication (HCC) Inhale 1 (one) puff by mouth every 6 hours as needed for Shortness of Breath or Wheezing 18 g 11 3 Active amLODIPine (Norvasc) 5 MG tablet Take 1 (one) tablet by mouth once daily 3 Active FLUoxetine (PROzac) 40 MG capsule Take 1 (one) capsule by mouth once daily 3 Active omeprazole (PriLOSEC) 40 MG capsuleIndication s:Gastroesophagea l reflux disease, unspecified whether esophagitis present Take 1 (one) capsule by mouth once daily 90 capsule 3 4 Active fluticasone propionate (Flonase) 50 MCG/ACT nasal sprayIndications: Allergic rhinitis, unspecified seasonality, unspecified trigger [place] 2 (two) sprays into each nostril once daily 48 g 3 4 Active D3-1000 25 MCG (1000 UT) 4 Active loratadine (Claritin) 10 MG tablet Take 1 (one) tablet by mouth once daily Active ferrous sulfate 325 (65 FE) MG tabletIndications :Iron deficiency TAKE 1 TABLET BY MOUTH EVERY DAY 90 tablet 3 5 Active polyethylene glycol (Nulytely) 420 g solution Take 4,000 mL by mouth once 5 Active zolpidem (Ambien) 5 MG tabletIndications :Chronic insomnia Take 1 (one) tablet by mouth at bedtime 90 tablet 1 5 Active ascorbic acid (VITAMIN C) 500 MG tabletIndications :Iron deficiency TAKE 1 TABLET BY MOUTH ONCE DAILY AT SAME TIME FERROUS SULFATE (IRON) TABLET 90 tablet 3 5 Active Azelastine HCl 137 MCG/SPRAY SOLN SPRAY 1 (ONE) SPRAY INTO EACH NOSTRIL 2 TIMES DAILY 30 mL 11 5 Active Active Problems Problem Noted Date Diagnosed Date Essential hypertension 04/06/2023 Excessive caffeine intake 08/24/2021 Irregular periods 08/22/2021 Microscopic hematuria 08/22/2021 Migraine 08/22/2021 Iron deficiency 08/22/2021 B12 deficiency 08/09/2021 Vitamin D deficiency 08/05/2021 Iron deficiency anemia 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 therap y 06/02/2021 Abnormal PFT 07/12/2018 Environmental and seasonal allergies 07/12/2018 Gastroesophageal reflux disease 07/12/2018 Reactive airway disease without complication Snoring 08/27/2017 RENEE (dyspnea on exertion) 04/03/2017 Hypoxemia 02/25/2017 Chronic respiratory failure 10/31/2016 Lung disease, restrictive 10/31/2016 Obesity 09/28/2016 Encounter for preventive health examination 01/2017 Allergic rhinitis 09/21/2015 Overview (10/17/2016): Overview: ICD-10 update 2015 CARMEN (obstructive sleep apnea) 09/21/2015 Tonsillar hypertrophy 09/21/2015 Allergic rhinitis 09/21/2015 Overview (03/10/2019): ICD-10 update 2015 Immunizations Immunization Administration Dates Next Due INFLUENZA VACCINE, TRIV. (AF LURIA, FLUZONE TRIVALENT; 6MO+) (IIV3) 08/30/2020 Covid Moderna primary monova lent 12+ yr 0.5mL 07/11/2021,06/11/2021 HEP B VACCINE, ADULT 3 DOSE 08/20/2023 INFLUENZA VACCINE 07/27/2021,08/30/2020,08/12/19 INFLUENZA VACCINE, QUADR. (F LUZONE; FLULAVAL; FLUARIX; AFLURIA QUADRIVALENT; 6MO+), 0.5 ML (IIV4) 06/08/2023,06/28/2022 PNEUMOCOCCAL PPV VACCINE 11/27/2021 TDAP (7yrs+) 08/01/2019 Family History Medical History Relation Name Comments Hypertension Brother Alcohol abuse Father 49-50 Cirrhosis Father 49-50 Migraine Mother Non-contributory Other None Known Sister x6 Relation Name Status Comments Brother Alive Father 49-50 Mother Alive Other Sister x6 Alive Social History Tobacco Use Types Packs/Day Years Used Date Smoking Tobacco: Never Smokeless Tobacco: Never Tobacco Cessation:Counseling Given: Not Answered Alcohol Use Standard Drinks/Week Comments No 0 (1 standard drink = 0.6 oz pur e alcohol) PHQ-2 Answer Date Recorded PHQ2 TOTAL SCORE 0 08/09/2021 Education Answer Date Recorded What is the highest level of school you have completed or the highest degree you have received? 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 Not on file Not on file Last Filed Vital Signs Vital Sign Reading Time Taken Comments Blood Pressure 115/68 09/11/2024 8:55 AM EXPERIENCE DESIGNER Pulse 90 09/11/2024 8:55 AM EXPERIENCE DESIGNER Temperature 36.4 C (97.6 F) 12/05/2023 11:31 AM CDT Respiratory Rate 17 09/11/2024 8:55 AM EXPERIENCE DESIGNER Oxygen Saturation 98% 09/11/2024 8:55 AM EXPERIENCE DESIGNER Inhaled Oxygen Concentration - - Weight 82.1 kg (181 lb) 09/11/2024 8:55 AM EXPERIENCE DESIGNER Height 149.9 cm (4' 11) 09/11/2024 8:55 AM EXPERIENCE DESIGNER Body Mass Index 36.56 09/11/2024 8:55 AM EXPERIENCE DESIGNER Plan of Treatment Upcoming Encounters Date Type Department Care Team (Late st Contact Info) Description 03/09/2025 2:00 PM CDT Office Visit [facility] [address] [facility] [address] [place] [phone] Dwight Somers MD [address] [facility] [address] [place] [address] Health Maintenance Due Date Last Done Comments LIPID TESTING 1982 HIV SCREENING 1997 HEPATITIS C SCREENING 04/24/2000 PAP SMEAR 2003 HPV VACCINE (1 - 3-dose SCDM series) 2009 HEPATITIS B VACCINE (2 of 3 - 19+ 3-dose series) 09/17/2023 08/20/2023 COVID-19 VACCINE ( season) 2024 09/06/2021, 07/11/2021, 06/11/2021, Additional history exists DEPRESSION SCREENING 07/23/2024 04/19/2022 INFLUENZA VACCINE (#1) 2025 3, 06/28/2022, 07/27/2021, Additional history exists SCREENING FOR DIABETES 07/06/2026 3, 04/06/2023, 02/19/2023, Additional history exists MAMMOGRAM 09/10/2026 09/10/2024, 08/23, 01/10/2023, Additional history exists DTAP/TDAP/TD VACCINES (2 - Td or Tdap) 08/01/2029 08/01/2019 ZOSTER VACCINE (1 of 2) 2032 PNEUMOCOCCAL VACCINE Aged Out 11/27/2021 No long er eligible based on patient's age to complete this topic HIB VACCINE Aged Out No longer eligi ble based on patient's age to complete this topic MENINGOCOCCAL (Group B) VACCINE SHARED DECISION-MAKING Aged Out No longer eligible based on patient's age to complete this topic MENINGOCOCCAL GROUPS A/C/Y/W VACCINE Aged Out No longer eligible based on patient's age to complete this topic Procedures Procedure Name Priority Date/Time Associated Diagnosis Comments COMPREHENSIVE METABOLIC PANEL Routine 08/28/2014 4:20 PM EXPERIENCE DESIGNER Shortness of breath from Last 3 Months or Most Recently Relevant to Health Maintenance Results * COMPREHENSIVE METABOLIC PANEL (08/28/2014 4:20 PM EXPERIENCE DESIGNER) Glucose 86 74 - 106 mg/dL 08/28/2014 4:[address] [facility] Sodium 140 136 - 145 mmol/L 08/28/2014 4:[address] [facility] Potassium 3.6 3.5 - 5.1 mmol/L 08/28/2014 4:[address] [facility] Chloride 106 98 - 107 mmol/L 08/28/2014 4:[address] [facility] CO2 27 22 - 31 mmol/L 08/28/2014 4:[address] [facility] Calcium 9.3 8.5 - 10.1 mg/dL 08/28/2014 4:[address] [facility] Anion Gap 7 5 - 15 mmol/L 08/28/2014 4:[address] [facility] BUN 12 7 - 21 mg/dL 08/28/2014 4:[address] [facility] Creatinine 0.57 0.50 - 1.30 mg/dL 08/28/2014 4:[address] [facility] eGFR by MDRD >60 >60 mL/min/1.7 3m2 08/28/2014 4:[address] [facility] eGFR by MDRD >60 >60 mL/min/1.7 3m2 08/28/2014 4:[address] [facility] Alkaline Phosphatase 60 38 - 126 U/L 08/28/2014 4:[address] [facility] ALT 19 12 - 78 U/L 08/28/2014 4:[address] [facility] AST 9 5 - 40 U/L 08/28/2014 4:[address] [facility] Protein Total 8.0 6.4 - 8.2 gm/dL 08/28/2014 4:52 PM EXPERIENCE DESIGNER [facility] Albumin 3.8 3.4 - 5.0 gm/dL 08/28/2014 4:52 PM EXPERIENCE DESIGNER [facility] Bilirubin Total 0.5 0.2 - 1.0 mg/dL 08/28/2014 4:52 PM EXPERIENCE DESIGNER [facility] Blood BLOOD SPECIMEN / Unknown Lab Venipuncture / Unknown 08/28/2014 4:20 PM EXPERIENCE DESIGNER 08/28/2014 4:20 PM EXPERIENCE DESIGNER Stefan Todd MD LAB - CHEMISTRY ORDERABL ES Final Result Performing Organization Address City/State/[facility] [email or web address]] Co de Phone Number [facility] [address] [place] [address] from Last 3 Months or Most Recently Relevant to Health Maintenance Insurance [facility] * Guarantor: ZAKI JOYA Account Type Relation to Patient Date of Phone Billing Address [facility] [address] [place] [address] [place] [address] Care Teams Paralegal Instructor Relationship Specialty Start Date End Date Boogie Cavazos PA [address] [place] [address] [address] [place] [address] PCP - General Physician Pin Ticket Machine Operator 10/17/16
--- OUTSIDE RECORDS SUMMARY | 2025-02-27 11:47 | XMS_ITS | Encounter Summary ---
Author Organization [facility] Address [address] [place] [address] Phone Care Team Providers Care Dog Bather Name Role Phone CavazosBoogie neely Primary Care Provider [phone] Marc Mcnair MD Unavailable Rachel Basurto MD Unavailable Encounter Details Date Type Department Care Team (Late st Contact Info) Description 07/28/2021 Telephone [facility] [address] [place] [address] Marc Mcnair MD [address] [address] [address] Social History Tobacco Use Types Packs/Day Years Used Date Smoking Tobacco: Never Smokeless Tobacco: Never Alcohol Use Standard Drinks/Week Comments Never 0 (1 standard drink = 0.6 oz pur e alcohol) PHQ-2 Answer Date Recorded Total Score - Questions 1-9 0 03/2021 Comments Unknown Sex and Gender Information Value Date Recorded Sex Assigned at Not on file Legal Sex Female 4:41 PM CDT Gender Identity Not on file Sexual Orientation Not on file COVID-19 Exposure Response Date Recorded In the last month, have you been in contact with someone who was confirmed or suspected to have Coronavirus / COVID-19? No / Unsure 06/30/2021 12:54 PM NEWBORN HEARING SCREENER documented as of this encounter Miscellaneous Notes * Telephone Encounter - Melissa Ibarra - 07/28/2021 2:00 PM CST PT HAD AN OFFICE VISIT SCHEDULED TODAY, NO SHOW, CALLED PT, LETTER SENT ORN HEARING SCREENER documented in this encounter Plan of Treatment Upcoming Encounters Date Type Department Care Team (Late st Contact Info) Description 03/12/2025 1:00 PM CDT Clinical Support [facility] [address] [phone] Nurse, Cc [facility] 04/23/2025 1:00 PM CDT Office Visit [facility] [address] [phone] Marc Mcnair MD [address] [place] [address] 2 [place] [address] 04/23/2025 1:15 PM CDT Clinical Support [facility] [address] [phone] Nurse, Cc [facility] documented as of this encounter Visit Diagnoses Not on filedocumented in this encounter Additional Health Concerns Assessment Noted Time PHQ-9 Depression Total Score: 0 06/02/20 21 2:12 PM NEWBORN HEARING SCREENER documented as of this encounter Care Teams Dog Bather Relationship Specialty Start Date End Date Boogie Cavazos PAC [address] [place] [address] PCP - General Family Medicine 05/18/21 Marc Mcnair MD [address] [place] [phone] Consulting Physician Oncology 05/18/21 Rachel Basurto MD [address] [place] [address] [address] [place] [address] Endocrinology 10/04/22 documented as of this encounter
--- OUTSIDE RECORDS SUMMARY | 2025-02-27 11:47 | XMS_ITS | Encounter Summary ---
Author Organization [facility] Address [address] [place] [address] Phone Care Team Providers Care Social Sciences Professor Name Role Phone CavazosBoogie Primary Care Provider Marc Mcnair MD Unavailable [phone] Rachel Basurto MD Unavailable Encounter Details Date Type Department Care Team (Late Contact Info) Description 05/27/2021 Telephone [facility] [address] [phone] Marc Mcnair MD [address] [facility] [address] [place] [address] [address] Social History Tobacco Use Types Packs/Day Years Used Date Smoking Tobacco: Never Assessed Comments Unknown Sex and Gender Information Value Date Recorded Sex Assigned at Not on file Legal Sex Female 4:41 PM CDT Gender Identity Not on file Sexual Orientation Not on file documented as of this encounter Miscellaneous Notes * Telephone Encounter - Nancy Ferreira - 05/27/2021 8:53 AM CDT PT CALLED TO RESCHEDULE APPT, DUE TO SHE IS STILL AT WORK, RESCHEDULED FOR 06/02 documented in this encounter Plan of Treatment Upcoming Encounters Date Type Department Care Team (Late st Contact Info) Description 03/12/2025 1:00 PM CDT Clinical Support [facility] [address] [phone] [facility] 04/23/2025 1:00 PM CDT Office Visit [facility] [address] [phone] Marc Mcnair MD [address] [facility] 2 [place] [address] 04/23/2025 1:15 PM CDT Clinical Support [facility] [address] [phone] [facility] documented as of this encounter Visit Diagnoses Not on filedocumented in this encounter Care Teams Social Sciences Professor Relationship Specialty Start Date End Date Boogie Cavazos PAC [address] [facility] [address] [place] [address] PCP - General Family Medicine 05/18/21 Marc Mcnair MD [address] [place] [phone] Consulting Physician Oncology 05/18/21 [place] [address] [place] [address] [address] [facility] [address] [place] [address] Endocrinology 10/04/22 documented as of this encounter
--- OUTSIDE RECORDS SUMMARY | 2025-02-27 11:47 | XMS_ITS | Clinical Summary ---
Author Organization [facility] Address [address] [facility] [place] [address] Phone Care Team Providers Care Crisis Counselor Name Role Phone Boogie Cavazos Primary Care Provider [phone] Marc Mcnair MD Unavailable [phone] Rachel Basurto MD Unavailable Allergies Active Allergy Reactions Criticality Noted Date Comments Amoxicillin Hives Medium 11/26/2020 Other reaction(s): Urticaria Diphenhydramine Hives Medium 03/03/2024 Doxycycline Rash Medium 12/02/2020 Other reaction(s): Headache Montelukast Other (see Comments) 11/10/2021 Depression Medications loratadine (CLARITIN) 10 MG Tablet Take 10 mg by mouth. 0 19 Active ferrous sulfate 325 (65 Fe) MG Tablet Take 325 mg by mouth. 19 Active medroxyPROGES TERone (DEPO-PROVERA ) 150 MG/ML Suspension medroxyprogesterone 150 mg/mL intramuscular suspension INJECT 1 MILLILITER INTRAMUSCULARLY EVERY 3 MONTHS Active albuterol 108 (90 Base) MCG/ACT Aerosol Solution albuterol sulfate HFA 90 mcg/actuation aerosol inhaler INHALE 2 (TWO) PUFFS BY MOUTH EVERY 4 HOURS NEEDED FOR SHORTNESS OF BREATH, WHEEZING OR COUGH 08/09/19 22 Active fluticasone (FLONASE) 50 MCG/ACT Suspension SPRAY 2 SPRAYS INTO EACH NOSTRIL EVERY DAY 04/19/20 22 Active Cholecalcifer ol (Vitamin D3) 1.25 MG (61476 UT) CapsuleIndica tions:Vitamin D deficiency TAKE 1 CAPSULE BY MOUTH ONCE WEEKLY FOR 8 DOSES 4 Capsule 1 06/13/20 Active Additional Information Patient not taking.Reported on 08/21/2024 amLODIPine (NORVASC) 5 MG Tablet 06/28/20 Active zolpidem (AMBIEN) 5 MG Tablet Take 5 mg by mouth. 06/01/20 22 Active fluticasone-s almeterol (ADVAIR) 250-50 MCG/ACT AEROSOL POWDER, BREATH ACTIVATED take 1 Puff by inhalation. 12/06/19 23 Active FLUoxetine (PROZAC) 40 MG Capsule Take 40 mg by mouth daily. 12/07/19 23 Active omeprazole (PriLOSEC) 40 MG CAPSULE DELAYED RELEASE Take 40 mg by mouth daily. 02/21/20 23 Active pantoprazole (PROTONIX) 40 MG Tablet Delayed Response 07/04/20 23 Active ascorbic acid (ASCORBIC ACID) 500 MG Tablet Take 500 mg by mouth daily. 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 06/02/2021 Asthma 12/08/2019 Gastroesophageal reflux disease 07/12/2018 Pneumothorax, traumatic 07/12/2018 RENEE (dyspnea on exertion) 04/03/2017 High-risk human papillomavir us (HPV) DNA detected in cervical specimen 03/05/2017 07/05/2023 Overview (07/05/2023): Cervical high risk HPV DNA test positive;Recorded Elsewhere: No Location: [facility] Source: EHR Chronic: N Practice ID: [id number] Billable Time: 03:15:00 PM Cervical high risk HPV DNA test positive;Recorded Elsewhere: No Location: [facility] Source: EHR Chronic: N Practice ID: [id number] Billable Time: 03:15:00 PM Hypoxemia 02/25/2017 Chronic respiratory failure 10/31/2016 Obesity 09/28/2016 Allergic rhinitis 09/21/2015 Overview (11/17/2021): Overview: ICD-10 update 2015 ICD-10 update 2015 Overview: Overview: ICD-10 update 2015 Hypertrophy of tonsils 09/21/2015 Obstructive sleep apnea syndrome 09/21/2015 Encounters Date Type Department Care Team Description 02/12/2025 1:15 PM CDT [facility] [address] [phone] Nurse, Cc Gt B12 deficiency (Primary Dx) 02/12/2025 Travel 01/15/2025 1:00 PM CDT Clinical Support [facility] [address] [phone] Nurse, Cc Gt B12 deficiency (Primary Dx) 01/15/2025 Travel 12/18/2024 1:30 PM CDT Office Visit [facility] [address] [phone] Amber Herndon APRN, FASHION JOURNALIST Iron deficiency anemia, unspecified iron deficiency anemia type (Primary Dx); B12 deficiency 12/18/2024 1:15 PM CDT Clinical Support [facility] [address] [phone] Nurse, Cc Gt B12 deficiency (Primary Dx) 12/18/2024 Travel from Last 3 Months Immunizations Immunization Administration Dates Next Due Covid-19, Mrna, Lnp-s, Pf, 1 00 Mcg Or 50 Mcg Dose (MODERNA) 09/06/2021,07/11/2021,06/11/2021,2020 Hepatitis B Vaccine 08/20/2023 Influenza Vaccine,unspecifie d Formulation 07/27/2021,08/12/2018 Influenza, Seasonal, Injecta ble, Undefined 08/30/2020 Pneumococcal Vaccine Adult - 23 Valent 11/27/2021 TDAP Vaccine 08/01/2019 Family History Medical History Relation Name Comments Hypertension Brother Relation Name Status Comments Brother Social History Tobacco Use Types Packs/Day Years [...] on file Sexual Orientation Not on file Last Filed Vital Signs Vital Sign Reading Time Taken Comments Blood Pressure 112/78 12/18/2024 12:52 PM CDT Pulse 100 12/18/2024 12:52 PM CDT Temperature 36.3 C (97.3 F) 12/18/2024 12:52 PM CDT Respiratory Rate 18 12/18/2024 12:52 PM CDT Oxygen Saturation 98% 12/18/2024 12:52 PM CDT Inhaled Oxygen Concentration - - Weight 80.7 kg (178 lb) 12/18/2024 12:52 PM CDT Height 149.9 cm (4' 11) 12/18/2024 12:52 PM CDT Body Mass Index 35.95 12/18/2024 12:52 PM CDT Plan of Treatment Upcoming Encounters Date Type Department Care Team (Late st Contact Info) Description 03/12/2025 1:00 PM CDT Clinical Support [facility] [address] [phone] Nurse, Patricia [facility] 04/23/2025 1:00 PM CDT Office Visit [facility] [address] [phone] Marc Mcnair MD [address] [place] [address] [place] [phone] 04/23/2025 1:15 PM CDT Clinical Support [facility] [address] [phone] Nurse, Patricia [facility] Health Maintenance Due Date Last Done Comments Hepatitis C Virus (HCV) Screening 1982 Pap Smear 2003 Human Papillomavirus (HPV) Immunization (1 - 3-dose SCDM series) 2009 Cervical Cancer Screening (CCS) 2012 HPV/Cotest 2012 Pneumococcal Immunization Combined (2 of 2 - PCV) 11/27/2022 11/27/2021 Hepatitis B Immunization (2 of 3 - 19+ 3-dose series) 09/17/2023 08/20/2023 SARS-COV-2 Immunization (5 - season) 2024 09/06/2021, 07/11/2021, 06/11/2021, Additional history exists Influenza Immunization (#1) 03/23/202506/22, 06/08/2023, 06/28/2022, Additional history exists Mammogram 09/10/2025 09/10/2024, 01/10/2023 Td Immunization Every 10 Years (Adults With 1 Tdap) 08/01/2029 08/01/2019 Respiratory Syncytial Virus (RSV) Immunization (Adult) (1 - 1-dose 75+ series) 2057 DTaP/Tdap/Td Immunization Discontinued 08/01/2019 Discussion re Starting/Frequency of Mammograms Completed 09/10/2024, 01/10/2023 Meningococcal Immunization (ACWY) Aged Out No longer eligible based on patient's age to complete this topic Rotavirus Immunization Aged Out No lo nger eligible based on patient's age to complete this topic Procedures Procedure Name Priority Date/Time Associated Diagnosis Comments CBC WITH AUTO DIFF [place] Routine 12/18/2024 1:07 PM CDT IRON AND TIBC [id number] [place] Routine 12/18/2024 1:07 PM CDT FERRITIN [id number] [place] Routine 12/18/2024 1: 07 PM CDT from Last 3 Months Results * IRON AND TIBC [id number] [place] (12/18/2024 1:07 PM CDT) Iron Bind.Cap.(TIBC) 334 250 - 450 UG/DL [facility]THAL[facility] TECHNOLOG[facility] UIBC 269 131 - 425 UG/DL CANCER CERTIFIED OPHTHALMIC TECHNOLOGIST [facility] Iron, Serum 65 27 - 159 UG/DL CANCER CERTIFIED OPHTHALMIC TECHNOLOGIST [facility] Iron Saturation 19 15 - 55 % [facility] CERTIFIED OPHTHALMIC TECHNOLOGIST [facility] 12/18/2024 1:07 PM CDT [facility] CERTIFIED OPHTHALMIC TECHNOLOGIST [facility] - 12/19/2024 10:08 AM CDT TESTING PERFORMED AT: [CB] [facility], [address] [place], [address], PHONE: [phone], [employer]: REECE KOEHLER, PHD Amber Herndon APRN, FASHION JOURNALIST LAB SEND OUTS Fin al Result Performing Organization Address City/[facility]/ZIP Co de Phone Number CANCER CERTIFIED OPHTHALMIC TECHNOLOGIST [facility] [address] [place] [address], [place] [phone] * FERRITIN [id number] [place] (12/18/2024 1:07 PM CDT) Ferritin, Serum 105 15 - 150 NG/ML CANCER CERTIFIED OPHTHALMIC TECHNOLOGIST [facility] 12/18/2024 1:07 PM CDT [facility] - 12/19/2024 10:08 AM CDT TESTING PERFORMED AT: [] [facility], [address] [place] [address], [address], PHONE: [phone], [employer]: REECE KOEHLER, PHD us Amber Herndon APRN, FASHION JOURNALIST LAB SEND OUTS Fin al Result Performing Organization Address City/[facility]/ZIP Co de Phone Number CANCER CERTIFIED OPHTHALMIC TECHNOLOGIST [facility] [address] [address], [place] [phone] * (ABNORMAL) CBC WITH AUTO DIFF [place] (12/18/2024 1:07 PM CDT) WBC 6.3 4.0 - 10.0 10*3/uL CANCER CERTIFIED OPHTHALMIC TECHNOLOGIST [facility] HGB 13.0 11.2 - 15.7 g/dL CANCER CERTIFIED OPHTHALMIC TECHNOLOGIST [facility] HCT 39.9 34.1 - 44.9 % CANCER CERTIFIED OPHTHALMIC TECHNOLOGIST [facility] PLT 371(H) 163 - 369 10*3/uL CANCER CERTIFIED OPHTHALMIC TECHNOLOGIST [facility] MPV 8.9(L) 9.4 - 12.4 fL CANCER CERTIFIED OPHTHALMIC TECHNOLOGIST [facility] RBC 4.62 3.93 - 5.22 10*6/uL CANCER CERTIFIED OPHTHALMIC TECHNOLOGIST [facility] MCV 86 79 - 95 fL [facility] MCH 28.1 25.6 - 32.2 pg CANCER CERTIFIED OPHTHALMIC TECHNOLOGIST [facility] MCHC 32.6 32.2 - 36.5 g/dL CANCER CERTIFIED OPHTHALMIC TECHNOLOGIST [facility] RDW 13.4 11.6 - 14.4 % CANCER CERTIFIED OPHTHALMIC TECHNOLOGIST [facility] Neutrophils % 54.9 36.0 - 66.0 % CANCER CERTIFIED OPHTHALMIC TECHNOLOGIST [facility] Lymphocytes % 36.0 19.0 - 40.0 % CANCER CERTIFIED OPHTHALMIC TECHNOLOGIST [facility] Monocytes % 7.1 4.1 - 12.1 % CANCER CERTIFIED OPHTHALMIC TECHNOLOGIST [facility] Eosinophils % 1.3 0.0 - 3.5 % CANCER CERTIFIED OPHTHALMIC TECHNOLOGIST [facility] Basophils % 0.5 0.0 - 1.0 % CANCER CERTIFIED OPHTHALMIC TECHNOLOGIST [facility] Absolute Neutrophils 3.5 1.4 - 6.6 10*3/uL CANCER CERTIFIED OPHTHALMIC TECHNOLOGIST [facility] Absolute Lymphocytes 2.3 0.8 - 4.0 10*3/ CANCER CERTIFIED OPHTHALMIC TECHNOLOGIST [facility] Absolute Monocytes 0.5 0.2 - 1.2 10*3/ CANCER CERTIFIED OPHTHALMIC TECHNOLOGIST [facility] Absolute Eosinophils 0.1 0.0 - 0.4 10*3/uL CANCER CERTIFIED OPHTHALMIC TECHNOLOGIST [facility] Absolute Basophils 0.0 0.0 - 0.1 10*3/ CANCER CERTIFIED OPHTHALMIC TECHNOLOGIST [facility] 12/18/2024 1:07 PM CDT us Amber Herndon APRN, FASHION JOURNALIST LAB SEND OUTS Fin al Result CANCER CERTIFIED OPHTHALMIC TECHNOLOGIST [facility] [place] [address], from Last 3 Months Insurance MEDICAID [place] MEDICAID [facility] Care Teams Crisis Counselor Relationship Specialty Start Date End Date Boogie Cavazos PAC [address] [place] [address] PCP - General Family Medicine 05/18/21 Marc Mcnair MD [address] [place] [address] Consulting Physician Oncology 05/18/21 Rachel Basurto MD [address] [facility] [address] [place] [address] Endocrinology 10/04/22
--- NOTE | 2025-02-27 11:50 | ECG_ITS ---
Test Date: 2025-02-27 11:51:14 Measurements Intervals Avery Rate: 88 P: 44 SD: 150 QRS: 7 QRSD: 82 T: -3 QT: 347 QTc: 421 Interpretive Statements SINUS RHYTHM LOW QRS VOLTAGE IN PRECORDIAL LEADS T WAVE ABNORMALITY IN ANTERIOR LEADS- CONSIDER ISCHEMIA ABNORMAL ECG No previous ECG available for comparison Electronically Signed On 02-27-2025 11:54:31 CDT by Latrell Jamil D.O.
[2025-02-27] MEDS: ASPIRIN 81 MG CHEWABLE TABLET 324 MG PO (12:00)
[2025-02-27 12:08] LABS: Hematocrit 35.4 % (37.0-47.0); Hemoglobin 11.4 g/dL (12.0-15.0); Immature Granulocyte Percent A 0.4 % (0-0.5); Lymphocytes Absolute Auto 1.56 K/mm3 (0.9-3.2); Mean Corpuscular HGB Conc 32.2 g/dl (32-36); Mean Corpuscular Hemoglobin 27.6 pg (26-34); Mean Corpuscular Volume 85.7 fl (80-100); Nucleated Red Blood Cells Absolute Auto 0.000 K/mm3 (0.0-0.012); Nucleated Red Blood Cells Perc 0.0 % (0.0-0.2); Platelet Count Result 426 k/mm3 (150-375); Red Blood Count 4.13 M/mm3 (4.2-5.4); White Blood Count 7.7 K/mm3 (4.5-10.0)
[2025-02-27 12:16] LABS: Alanine Aminotransferase 15 U/L (6-35); Albumin Level 4.1 g/dL (3.5-5.1); Alkaline Phosphatase 67 U/L (38-126); Anion Gap 9 mmol/L (4-12); Aspartate Amino Transferase 18 U/L (14-36); Bilirubin,Total 0.7 mg/dL (0.2-1.3); Blood Urea Nitrogen 6 mg/dL (7-17); Calcium 9.0 mg/dL (8.4-10.2); Carbon Dioxide 24 mmol/L (22-30); Chloride 108 mmol/L (98-107); Estimated Glomerular Filt Rate > 60; Glucose 115 mg/dL (65-110); Lipase 44 U/L (23-300); Potassium 3.8 mmol/L (3.4-5.0); Sodium 141 mmol/L (137-145); Total Protein 7.4 g/dL (6.3-8.2)
[2025-02-27 12:27] LABS: INR 1.0; Partial Thromboplastin Time 27.5 Seconds (22.3-36.8); Prothrombin Time 12.8 Seconds (11.1-14.7)
[2025-02-27 12:28] LABS: Troponin I < 0.012 ng/mL (0.000-0.034)
--- NOTE | 2025-02-27 12:36 | ED_ITS ---
HPI - General Adult General Chief complaint: Chest Pain Stated complaint: CP & VILLANUEVA x 2 weeks Time Seen by Provider: 02/27/25 12:12 History of Present Illness HPI narrative: 44-year-old female presents to the emergency department for evaluation for right-sided chest heaviness and intermittent headache. Patient reports he does have history of sinus congestion and allergies and does take generic Claritin and Flonase daily patient has had increased bilateral ear pressure and increased sinus pressure and headache for the last 2 weeks. Patient began having intermittent right-sided chest pain/chest heaviness yesterday. Patient denies any coughs colds or fevers. Patient denies any prior history of coronary disease but does have history hypertension. Patient denies any prior history of PE or DVT. Patient does report some exertional shortness of breath. Related Data Home Medications ?Medication ?Instructions ?Recorded ?Confirmed ?Last Taken ?Type loratadine 10 mg tablet (Claritin) 10 mg PO HS 06/07/20 02/27/25 02/26/25 History amlodipine 5 mg tablet 5 mg PO HS 02/27/25 02/27/25 02/26/25 History ascorbic acid (vitamin C) 500 mg 500 mg PO HS 02/27/25 02/27/25 02/26/25 History tablet (Vitamin C) cholecalciferol (vitamin D3) 50 50 mcg PO HS 02/27/25 02/27/25 02/26/25 History mcg (2,000 unit) capsule (Vitamin D3) ferrous sulfate 325 mg (65 mg 325 mg PO HS 02/27/25 02/27/25 02/26/25 History iron) tablet fluoxetine 40 mg capsule 40 mg PO HS 02/27/25 02/27/25 02/26/25 History methylprednisolone 4 mg tablets in 4 mg PO .COMPLEX 02/27/25 02/27/25 02/20/25 History a dose pack omeprazole 40 mg capsule,delayed 40 mg PO HS 02/27/25 02/27/25 02/26/25 History release zolpidem 5 mg tablet 5 mg PO DAILY 02/27/25 02/27/25 02/26/25 08:00 History Allergies Allergy/AdvReac Type Severity Reaction Status Date / Time amoxicillin Allergy Weakness Verified 02/22/21 01:29 peanut Allergy Hives Verified 02/22/21 01:29 Review of Systems 2 Review of Systems: All systems reviewed & are unremarkable except as noted in HPI and below [facility] Past Medical History Medical History (Updated 02/27/25 @ 15:13 by Catherine Urena APRN) Hypertension COVID-19 Seasonal allergies Family History Family History (Updated 02/27/25 @ 18:27 by Brittany Downs, JASWINDER) Sibling Asthma Hypertension Mother Asthma Hypertension Grandparent Chronic obstructive pulmonary disease Grandparent Colon cancer Sibling History of blood clots Social History Social History Smoking status: Never smoker Alcohol intake: never Substance use: never Lack of Transportation: No Lack of Food: Never True Current Housing: I Have Housing Concerned About Future Housing: No Difficulty Paying Gas/Electric Bills: No Difficulty Paying for Meds: No Currently Unemployed: No Education: Trade/Vocational Certificate Difficulty w/ Childcare or Family Care: No Gender identity (if verbalized by the patient): Female Spiritual care concerns: No Exam 2 Narrative: APPEARANCE: Well appearing, no pain, no distress, well-nourished. HEAD: normocephalic, atraumatic. EYES: PERRLA/EOMI, conjunctivae clear. NOSE: Normal no drainage EARS:TMS clear with good light reflex. THROAT: Pharynx clear, no exudate. NECK: Supple. No adenopathy, no masses. RESPIRATORY: Airway patent, respirations nonlabored. Clear to auscultation bilaterally, no rales, rhonchi, wheezing. CARDIOVASCULAR: Regular rate and rhythm without murmurs rubs or gallops. ABDOMINAL: Soft, nontender, nondistended, normal bowel sounds MUSCULOSKELETAL: Moves all extremities. Strength/ROM intact, No edema, No calf tenderness. NEURO: Alert. Cranial nerves II through XII intact. Good gait. Good coordination SKIN: Warm, dry. Normal Color Course Vital Signs Vital signs: Vital Signs Pulse Rate 94 02/27/25 11:47 Respiratory Rate 20 02/27/25 11:47 Blood Pressure 140/104 H 02/27/25 11:47 Pulse Oximetry 100 02/27/25 11:47 Oxygen Delivery Room Air 02/27/25 11:47 Temperature 98.5 F 02/27/25 18:21 Pulse Rate 80 02/27/25 18:21 Respiratory Rate 18 02/27/25 18:21 Blood Pressure 121/69 02/27/25 18:21 Pulse Oximetry 100 02/27/25 18:21 Oxygen Delivery Room Air 02/27/25 18:13 Medical Decision Making MDM Narrative Medical decision making narrative: 44-year-old female presents emergency department for evaluation for sinus symptoms along with some right-sided chest pressure exertional shortness of breath. Patient is currently afebrile with no leukocytosis hemoglobin of 11.4. Patient does have an elevated D-dimer is 0.56 with no acute abnormalities on her CMP troponin was negative. Urine test was negative. Patient's CTA is positive for pulmonary embolism with small clot burden. Patient denies any recent falls or injuries. Patient denies being on hormone replacement or control. Case was discussed with hospitalist and patient will be started on heparin drip and admitted to the intermediate care unit Critical Care Procedure Note Authorized and Performed by: Jon Carlisle Total critical care time: Approximately 36 minutes Due to a high probability of clinically significant, life threatening deterioration, the patient required my highest level of preparedness to intervene emergently and I personally spent this critical care time directly and personally managing the patient. This critical care time included obtaining a history; examining the patient; pulse oximetry; ordering and review of studies; arranging urgent treatment with development of a management plan; evaluation of patient's response to treatment; frequent reassessment; and, discussions with other providers. This critical care time was performed to assess and manage the high probability of imminent, life-threatening deterioration that could result in multi-organ failure. It was exclusive of separately billable procedures and treating other patients and teaching time. Please see MDM section and the rest of the note for further information on patient assessment and treatment. Differential Diagnosis Differential Diagnosis: Pneumonia, pneumothorax, pulmonary embolism, sinusitis Vital Signs Vital Signs: Vital Signs Pulse Rate 94 02/27/25 11:47 Respiratory Rate 20 02/27/25 11:47 Blood Pressure 140/104 H 02/27/25 11:47 Pulse Oximetry 100 02/27/25 11:47 Oxygen Delivery Room Air 02/27/25 11:47 Temperature 98.5 F 02/27/25 18:21 Pulse Rate 80 02/27/25 18:21 Respiratory Rate 18 02/27/25 18:21 Blood Pressure 121/69 02/27/25 18:21 Pulse Oximetry 100 02/27/25 18:21 Oxygen Delivery Room Air 02/27/25 18:13 Lab Data Lab results reviewed: Yes I reviewed the patient's lab results. 02/27/25 11:58 02/27/25 11:58 Labs: Lab Results 02/27/25 02/27/25 Range/Units 11:58 14:29 WBC 7.7 (4.5-10.0) K/mm3 RBC 4.13 L (4.2-5.4) M/mm3 Hgb 11.4 L (12.0-15.0) g/dL Hct 35.4 L (37.0-47.0) % MCV 85.7 (80-100) fl MCH 27.6 (26-34) pg MCHC 32.2 (32-36) g/dl RDW 13.7 (11.5-14.5) % Plt Count 426 H (150-375) k/mm3 MPV 8.6 (7.4-10.4) fl Immature Gran % (Auto) 0.4 (0-0.5) % Neut % (Auto) 73.8 H (45.5-73.1) % Lymph % (Auto) 20.2 (18.3-44.2) % [place] % (Auto) 4.8 (2.6-8.5) % Eos % (Auto) 0.4 (0-4.4) % Baso % (Auto) 0.4 (0.2-1.2) % Lymph # (Auto) 1.56 (0.9-3.2) K/mm3 [place] # (Auto) 0.4 (0.1-0.6) K/mm3 Eos # (Auto) 0.0 (0-0.3) K/mm3 Baso # (Auto) 0.0 (0.0-0.1) K/mm3 Abs Immat Gran (auto) 0.03 (0.00-0.031) K/mm3 Absolute Neuts (auto) 5.7 (1.3-6.7) K/mm3 Absolute Nucleated RBC 0.000 (0.0-0.012) K/mm3 Nucleated RBC % 0.0 (0.0-0.2) % PT 12.8 (11.1-14.7) Seconds INR 1.0 APTT 27.5 (22.3-36.8) Seconds D-Dimer 0.56 H (<0.48) ug/mL Sodium 141 (137-145) mmol/L Potassium 3.8 (3.4-5.0) mmol/L Chloride 108 H (98-107) mmol/L Carbon Dioxide 24 (22-30) mmol/L Anion Gap 9 (4-12) mmol/L BUN 6 L (7-17) mg/dL Creatinine 0.76 (0.7-1.0) mg/dL Estim Creat Clear Calc Not Reportable Estimated GFR > 60 (59 - ) Glucose 115 H (65-110) mg/dL Calcium 9.0 (8.4-10.2) mg/dL Total Bilirubin 0.7 (0.2-1.3) mg/dL AST 18 (14-36) U/L ALT 15 (6-35) U/L Alkaline Phosphatase 67 (38-126) U/L Troponin I < 0.012 (0.000-0.034) ng/mL Total Protein 7.4 (6.3-8.2) g/dL Albumin 4.1 (3.5-5.1) g/dL Lipase 44 (23-300) U/L POC Urine HCG, Qual Negative (Negative) Imaging Data Radiologist's impression: Impressions Chest X-Ray 02/27/25 12:28 IMPRESSION: 1: NO ACUTE CARDIOPULMONARY DISEASE. Chest/Abdomen/Pelvis CTA 02/27/25 14:20 IMPRESSION: 1. Small filling defects right upper lobe segmental pulmonary arteries, suspicious for pulmonary embolism, small thrombus burden. 2: Enlarged fibroid uterus. ECG Data EKG #1: EKG Interpretation: normal rate, sinus rhythm, no ectopy, non-specific ST changes, normal QRS, normal QT and no acute changes Critical Care Time Critical Care Time Critical Care Time: Yes Total Critical Care Time: 36 Discharge Plan Discharge Clinical Impression: Pulmonary embolism Patient Disposition: Still a Patient Condition: Serious
--- OUTSIDE RECORDS SUMMARY | 2025-02-27 13:01 | XMS_ITS | Encounter Summary ---
Author Organization [facility] Address [address] [place] [address] Phone Care Team Providers Care Infantry Weapons Officer Name Role Phone CavazosBoogie Primary Care Provider Marc Mcnair MD Unavailable Rachel Basurto MD Unavailable Encounter Details Date Type Department Care Team (Late Contact Info) Description 05/27/2021 Telephone [facility] [address] [phone] Marc Mcnair MD [address] [facility] [place] [address] [address] Social History Tobacco Use Types [...] PM CDT Clinical Support [facility] [address] [phone] [facility], [facility] 04/23/2025 1:00 PM CDT Office Visit [facility] [address] [phone] Marc Mcnair MD [address] [facility] 2 [place] [address] 04/23/2025 1:15 PM CDT Clinical Support [facility] [address] [phone] Nurse, [facility] documented as of this encounter Visit Diagnoses Not on filedocumented in this encounter Care Teams Infantry Weapons Officer Relationship Specialty Start Date End Date Boogie Cavazos PAC [address] [facility] [address] [place] [address] PCP - General Family Medicine 05/18/21 Marc Mcnair MD [address] [place] [phone] Consulting Physician Oncology 05/18/21 [place] [address] [place] [address] [address] [facility] [address] [place] [address] Endocrinology 10/04/22 documented as of this encounter
--- OUTSIDE RECORDS SUMMARY | 2025-02-27 13:01 | XMS_ITS | Clinical Summary ---
Author Organization [facility] Address [address] [place] [address] Care Team Providers Care Tugboat Engineer Name Role Phone Edie Foster NP Primary Care Provider [phone] Allergies Active Allergy Reactions Criticality Noted Date [...] on file Legal Sex Female 6:24 PM NAPHTHA WASHING SYSTEM OPERATOR Gender Identity Not on file Sexual Orientation Not on file Obstetrics History Para Term AB IAB SAB Ectopic Multiple Livin g Live Births 4 4 4 Date Outcome GA Total Labor Labor/2nd/3rd Weight Sex Type Anes PTL Porsha A1 A5 Name Clin Term Term Term Term Last Filed Vital Signs Vital Sign Reading Time Taken Comments Blood Pressure 112/80 08/04/2024 10:56 AM NAPHTHA WASHING SYSTEM OPERATOR Pulse 88 08/04/2024 10:56 AM NAPHTHA WASHING SYSTEM OPERATOR Temperature 36.2 C (97.1 F) 08/04/2024 10:56 AM NAPHTHA WASHING SYSTEM OPERATOR Respiratory Rate 16 08/04/2024 10:5 6 AM NAPHTHA WASHING SYSTEM OPERATOR Oxygen Saturation 100% 08/04/2024 10: 56 AM NAPHTHA WASHING SYSTEM OPERATOR Inhaled Oxygen Concentration - - Weight 81.6 kg (179 lb 14.3 oz) 06/10/2024 9:56 AM NAPHTHA WASHING SYSTEM OPERATOR Height 152.4 cm (5') 06/10/2024 9:56 AM NAPHTHA WASHING SYSTEM OPERATOR Body Mass Index 35.13 06/10/2024 9:56 AM NAPHTHA WASHING SYSTEM OPERATOR Plan of Treatment Health Maintenance Due Date [...] Read Routine (OP Routine) 09/10/2024 7:34 AM NAPHTHA WASHING SYSTEM OPERATOR Encounter for screening mammogram for malignant neoplasm of breast from Last 3 Months or Most Recently Relevant to Health Maintenance Results * Screening Mammogram Bilateral W Jocelin (09/10/2024 7:34 AM NAPHTHA WASHING SYSTEM OPERATOR) Anatomical Region Laterality Modality Breast Bilateral Mammography Impressions 09/10/2024 8:17 AM NAPHTHA WASHING SYSTEM OPERATOR BI-RADS ATLAS category (overall): 2 - Benign There is no mammographic evidence of malignancy. A 1 year screening mammogram is recommended. The patient has been or will be contacted. We recommend annual screening mammography for women at average risk of breast cancer beginning at age 40, based on guidelines of the [employer] (ACR Practice Parameter for the Performance of Screening and Diagnostic Mammography) and [employer]. For women with and elevated risk of breast cancer, please refer to the ACR Practice Parameter for specific screening recommendations. The patient will be entered into a reminder system with a target due date of 1 year for her next screening exam. Narrative 09/10/2024 8:17 AM NAPHTHA WASHING SYSTEM OPERATOR Screening Mammogram Bilateral W Jocelin: 09/10/24 The [...] Most Recently Relevant to Health Maintenance Insurance [facility] Care Teams Tugboat Engineer Relationship Specialty Start Date End Date Edie Foster NP [address] [place] [id number] PCP - General Nurse Practitioner 06/10/24
--- OUTSIDE RECORDS SUMMARY | 2025-02-27 13:01 | XMS_ITS | Encounter Summary ---
Author Organization [facility] Address [address] [place] [address] Phone Care Team Providers Care Postpartum Rn Name Role Phone CavazosBoogie Primary Care Provider [phone] Marc Mcnair MD Unavailable Rachel Basurto MD Unavailable Encounter Details Date Type Department Care Team (Late Contact Info) Description 06/27/2024 Telephone [facility] [address] [phone] Marc Mcnair MD [address] [facility] [place] [address] [address] Social History Tobacco Use Types [...] PM CDT Clinical Support [facility] [address] [phone] Nurse, Patricia [facility] 04/23/2025 1:00 PM CDT Office Visit [facility] [address] [place] [phone] Marc Mcnair MD [facility] [address] [facility] 2 [place] [address] 04/23/2025 1:15 PM CDT Clinical Support [facility] [place] [address] [place] [phone] Nurse, Cc [facility] documented as of this encounter Visit Diagnoses Not on filedocumented in this encounter Additional Health Concerns Assessment Noted Time PHQ-9 Depression Total Score: 0 06/02/20 2:12 PM ARCHITECTURAL EXAMINER documented as of this encounter Care Teams Postpartum Rn Relationship Specialty Start Date End Date Boogie Cavazos PAC [address] [place] [address] [address] [place] [address] PCP - General Family Medicine 05/18/21 Marc Mcnair MD [address] [place] [phone] Consulting Physician Oncology 05/18/21 Rachel Basurto MD [address] [facility] [address] [facility] 200 [place] [address] Endocrinology 10/04/22 documented as of this encounter
--- OUTSIDE RECORDS SUMMARY | 2025-02-27 13:01 | XMS_ITS | Clinical Summary ---
Author Organization [facility] Address [address] [facility] [place] [address] Phone Care Team Providers Care Stacker Operator Name Role Phone Boogie Cavazos Primary Care Provider Marc Mcnair MD Unavailable [phone] Rachel Basurto MD Unavailable Allergies Active Allergy [...] Active Cholecalcifer ol (Vitamin D3) 1.25 MG (36551 UT) CapsuleIndica tions:Vitamin D deficiency TAKE 1 [...] HPV DNA test positive;Recorded Elsewhere: No Location: [facility] Source: EHR Chronic: N Practice ID: [id number] Billable Time: 03:15:00 PM Cervical high risk HPV DNA test positive;Recorded Elsewhere: No Location: [facility] Source: EHR Chronic: N Practice ID: [id number] Billable Time: 03:15:00 PM Hypoxemia 02/25/2017 Chronic respiratory failure 10/31/2016 Obesity 09/28/2016 Allergic rhinitis 09/21/2015 Overview (11/17/2021): Overview: ICD-10 update 2015 ICD-10 update 2015 Overview: Overview: ICD-10 update 2015 Hypertrophy of tonsils 09/21/2015 Obstructive sleep apnea syndrome 09/21/2015 Encounters Date Type Department Care Team Description 02/12/2025 1:15 PM CDT Clinical Support [facility] [address] [phone] Nurse, Cc Gt B12 deficiency (Primary Dx) 02/12/2025 Travel 01/15/2025 1:00 PM CDT Clinical Support [facility] [address] [phone] Nurse, Cc Gt B12 deficiency (Primary Dx) 01/15/2025 Travel 12/18/2024 1:30 PM CDT Office Visit [facility] [address] [phone] Amber Herndon APRN, LOCAL COORDINATOR Iron deficiency anemia, unspecified iron deficiency anemia type (Primary Dx); B12 deficiency 12/18/2024 1:15 PM CDT Clinical Support [facility] [address] [phone] Nurse, Cc Gt B12 deficiency (Primary Dx) [...] PM CDT Clinical Support [facility] [address] [phone] Nurse, Patricia [facility] 04/23/2025 1:00 PM CDT Office Visit [facility] [address] [phone] Marc Mcnair MD [address] [place] [address] [place] [phone] 04/23/2025 1:15 PM CDT Clinical Support [facility] [address] [phone] Nurse, Patricia [facility] Health Maintenance Due Date Last Done Comments [...] 12/18/2024 1:07 PM CDT IRON AND TIBC [id number] [place] Routine 12/18/2024 1:07 PM CDT FERRITIN [id number] [place] Routine 12/18/2024 1: 07 PM CDT from Last 3 Months Results * IRON AND TIBC [id number] [place] (12/18/2024 1:07 PM CDT) Iron Bind.Cap.(TIBC) 334 250 - 450 UG/DL [facility] UIBC 269 131 - 425 UG/DL [facility] RECOR[facility] SECTION SUPERVISOR [facility] Iron, Serum 65 27 - 159 UG/DL [facility] RECORDS SECTION SUPERVISOR [facility] Iron Saturation 19 15 - 55 % [facility] RECORDS SECTION SUPERVISOR [facility] 12/18/2024 1:07 PM CDT [facility] RECORDS SECTION SUPERVISOR [facility] - 12/19/2024 10:08 AM CDT TESTING PERFORMED AT: [CB] [facility], [address] [place], [address], PHONE: [phone], TRAVERTINE INSTALLER: REECE KOEHLER, PHD Amber Herndon APRN, LOCAL COORDINATOR LAB SEND OUTS Fin al Result Performing Organization Address City/[facility]/ZIP Co de Phone Number CANCER RECORDS SECTION SUPERVISOR [facility] [address] [place] [address], [place] [phone] * FERRITIN [id number] [place] (12/18/2024 1:07 PM CDT) Ferritin, Serum 105 15 - 150 NG/ML [facility]ER RECORDS SECTION SUPERVISOR [facility] 12/18/2024 1:[address] [facility] - 12/19/2024 10:08 AM CDT TESTING PERFORMED AT: [] [facility], [address] [place] [address], [address], PHONE: [phone], TRAVERTINE INSTALLER: REECE KOEHLER, PHD us Amber Herndon APRN, LOCAL COORDINATOR LAB SEND OUTS Fin al Result Performing Organization Address City/[facility]/ZIP Co de Phone Number CANCER RECORDS SECTION SUPERVISOR [facility] [address] [address], [place] [phone] * (ABNORMAL) CBC WITH AUTO DIFF [place] (12/18/2024 1:07 PM CDT) WBC 6.3 4.0 - 10.0 10*3/uL CANCER RECORDS SECTION SUPERVISOR [facility] HGB 13.0 11.2 - 15.7 g/dL CANCER RECORDS SECTION SUPERVISOR [facility] HCT 39.9 34.1 - 44.9 % CANCER RECORDS SECTION SUPERVISOR [facility] PLT 371(H) 163 - 369 10*3/uL CANCER RECORDS SECTION SUPERVISOR [facility] MPV 8.9(L) 9.4 - 12.4 fL CANCER RECORDS SECTION SUPERVISOR [facility] RBC 4.62 3.93 - 5.22 10*6/uL CANCER RECORDS SECTION SUPERVISOR [facility] MCV 86 79 - 95 fL [facility] MCH 28.1 25.6 - 32.2 pg CANCER RECORDS SECTION SUPERVISOR [facility] MCHC 32.6 32.2 - 36.5 g/dL CANCER RECORDS SECTION SUPERVISOR [facility] RDW 13.4 11.6 - 14.4 % CANCER RECORDS SECTION SUPERVISOR [facility] Neutrophils % 54.9 36.0 - 66.0 % CANCER RECORDS SECTION SUPERVISOR [facility] Lymphocytes % 36.0 19.0 - 40.0 % CANCER RECORDS SECTION SUPERVISOR [facility] Monocytes % 7.1 4.1 - 12.1 % CANCER RECORDS SECTION SUPERVISOR [facility] Eosinophils % 1.3 0.0 - 3.5 % CANCER RECORDS SECTION SUPERVISOR [facility] Basophils % 0.5 0.0 - 1.0 % CANCER RECORDS SECTION SUPERVISOR [facility] Absolute Neutrophils 3.5 1.4 - 6.6 10*3/uL CANCER RECORDS SECTION SUPERVISOR [facility] Absolute Lymphocytes 2.3 0.8 - 4.0 10*3/ CANCER RECORDS SECTION SUPERVISOR [facility] Absolute Monocytes 0.5 0.2 - 1.2 10*3/ CANCER RECORDS SECTION SUPERVISOR [facility] Absolute Eosinophils 0.1 0.0 - 0.4 10*3/uL CANCER RECORDS SECTION SUPERVISOR [facility] Absolute Basophils 0.0 0.0 - 0.1 10*3/ CANCER RECORDS SECTION SUPERVISOR [facility] 12/18/2024 1:07 PM CDT us Amber Herndon APRN, LOCAL COORDINATOR LAB SEND OUTS Fin al Result CANCER RECORDS SECTION SUPERVISOR [facility] [place] [address], from Last 3 Months Insurance MEDICAID [place] MEDICAID [facility] Care Teams Stacker Operator Relationship Specialty Start Date End Date Boogie Cavazos PAC [address] [place] [address] PCP - General Family Medicine 05/18/21 Marc Mcnair MD [address] [place] [address] Consulting Physician Oncology 05/18/21 Rachel Basurto MD [address] [facility] [address] [place] [address] Endocrinology 10/04/22
--- OUTSIDE RECORDS SUMMARY | 2025-02-27 13:01 | XMS_ITS | Encounter Summary ---
Author Organization [facility] Address [address] [place] [address] Phone Care Team Providers Care Eligibility Analyst Name Role Phone CavazosBoogie neely Primary Care Provider [phone] Marc Mcnair MD Unavailable [phone] Rachel Basurto MD Unavailable Encounter Details Date Type Department Care Team (Late st Contact Info) Description 07/28/2021 Telephone [facility] [address] [place] [address] Marc Mcnair MD [address] [address] Social History Tobacco Use Types [...] COVID-19? No / Unsure 06/30/2021 12:54 PM MANAGER VIDEO documented as of this encounter Miscellaneous Notes * Telephone Encounter - Melissa Ibarra - 07/28/2021 2:00 PM CST PT HAD AN OFFICE VISIT SCHEDULED TODAY, NO SHOW, CALLED PT, LETTER SENT GER VIDEO documented in this encounter Plan of Treatment Upcoming Encounters Date Type Department Care Team (Late st Contact Info) Description 03/12/2025 1:00 PM CDT Clinical Support [facility] [address] [phone] Nurse, Cc [facility] 04/23/2025 1:00 PM CDT Office Visit [facility] [address] [phone] Marc Mcnair MD [address] [place] [address] [address] [place] [address] 04/23/2025 1:15 PM CDT Clinical Support [facility] [address] [phone] Nurse, Cc [facility] documented as of this encounter Visit Diagnoses Not on filedocumented in this encounter Additional Health Concerns Assessment Noted Time PHQ-9 Depression Total Score: 0 06/02/20 21 2:12 PM MANAGER VIDEO documented as of this encounter Care Teams Eligibility Analyst Relationship Specialty Start Date End Date Boogie Cavazos PAC [address] [place] [address] PCP - General Family Medicine 05/18/21 Marc Mcnair MD [address] [place] [phone] Consulting Physician Oncology 05/18/21 Rachel Basurto MD [address] [place] [address] [address] [place] [address] Endocrinology 10/04/22 documented as of this encounter
--- OUTSIDE RECORDS SUMMARY | 2025-02-27 13:01 | XMS_ITS | Clinical Summary ---
Author Organization [facility] Address [address] [place] [address] Care Team Providers Care Weapons Mechanic Name Role Phone Boogie Cavazos Primary Care Provider [phone] Source Comments [facility],non-owned Affiliates and Associated Physician Practices is amultiple site organization consisting of ambulatory clinics and hospital sitesin [place], [place], [place] and [place]. This disclosure is being madepursuant to the Care Everywhere program and may not contain all information available regarding this patient. 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 Not on file Not on file Not on file Last Filed Vital Signs Vital Sign Reading Time Taken Comments Blood Pressure 115/68 09/11/2024 8:55 AM WATER ATTENDANT Pulse 90 09/11/2024 8:55 AM WATER ATTENDANT Temperature 36.4 C (97.6 F) 12/05/2023 11:31 AM CDT Respiratory Rate 17 09/11/2024 8:55 AM WATER ATTENDANT Oxygen Saturation 98% 09/11/2024 8:55 AM WATER ATTENDANT Inhaled Oxygen Concentration - - Weight 82.1 kg (181 lb) 09/11/2024 8:55 AM WATER ATTENDANT Height 149.9 cm (4' 11) 09/11/2024 8:55 AM WATER ATTENDANT Body Mass Index 36.56 09/11/2024 8:55 AM WATER ATTENDANT Plan of Treatment Upcoming Encounters Date Type Department Care Team (Late st Contact Info) Description 03/09/2025 2:00 PM CDT Office Visit [facility] [address] [facility] [address] [place] [phone] Dwight Somers MD [address] [facility] [address] [place] [address] Health Maintenance Due Date Last [...] COMPREHENSIVE METABOLIC PANEL Routine 08/28/2014 4:20 PM WATER ATTENDANT Shortness of breath from Last 3 Months or Most Recently Relevant to Health Maintenance Results * COMPREHENSIVE METABOLIC PANEL (08/28/2014 4:20 PM WATER ATTENDANT) Glucose 86 74 - 106 mg/dL 08/28/2014 4:52 PM [facility] Sodium 140 136 - 145 mmol/L 08/28/2014 4:52 PM [facility] Potassium 3.6 3.5 - 5.1 mmol/L 08/28/2014 4:52 PM [facility] Chloride 106 98 - 107 mmol/L 08/28/2014 4:52 PM [facility] CO2 27 22 - 31 mmol/L 08/28/2014 4:52 PM [facility] Calcium 9.3 8.5 - 10.1 mg/dL 08/28/2014 4:52 PM [facility] Anion Gap 7 5 - 15 mmol/L 08/28/2014 4:52 PM [facility] BUN 12 7 - 21 mg/dL 08/28/2014 4:52 PM [facility] Creatinine 0.57 0.50 - 1.30 mg/dL 08/28/2014 4:52 PM [facility] eGFR by MDRD >60 >60 mL/min/1.7 3m2 08/28/2014 4:52 PM [facility] eGFR by MDRD >60 >60 mL/min/1.7 3m2 08/28/2014 4:52 PM [facility] Alkaline Phosphatase 60 38 - 126 U/L 08/28/2014 4:52 PM [facility] ALT 19 12 - 78 U/L 08/28/2014 4:52 PM [facility] AST 9 5 - 40 U/L 08/28/2014 4:52 PM [facility] Protein Total 8.0 6.4 - 8.2 gm/dL 08/28/2014 4:52 PM WATER ATTENDANT [facility] Albumin 3.8 3.4 - 5.0 gm/dL 08/28/2014 4:52 PM WATER ATTENDANT [facility] Bilirubin Total 0.5 0.2 - 1.0 mg/dL 08/28/2014 4:52 PM WATER ATTENDANT [facility] Blood BLOOD SPECIMEN / Unknown Lab Venipuncture / Unknown 08/28/2014 4:20 PM WATER ATTENDANT 08/28/2014 4:20 PM WATER ATTENDANT Stefan Todd MD LAB - CHEMISTRY ORDERABL ES Final Result Performing Organization Address City/State/[facility] Co de Phone Number [facility] [address] [place] [address] from Last 3 Months or Most Recently Relevant to Health Maintenance Insurance [facility] * Guarantor: ZAKI JOYA Account Type Relation to Patient Date of Phone Billing Address [facility] [address] [place] [address] [place] [address] Care Teams Weapons Mechanic Relationship Specialty Start Date End Date Boogie Cavazos PA [address] [place] [address] [address] [place] [address] PCP - General Physician Graduating Machine Operator 10/17/16
[2025-02-27 14:30] LABS: BEDSIDEPREGUCG Negative (Negative)
--- NOTE | 2025-02-27 14:53 | ECG_ITS ---
Test Date: 2025-02-27 14:58:30 Measurements Intervals [place] Rate: 77 P: 45 ND: 149 QRS: 12 QRSD: 80 T: -2 QT: 352 QTc: 400 Interpretive Statements SINUS RHYTHM LOW QRS VOLTAGE IN PRECORDIAL LEADS ST-T WAVE ABNORMALITY IN ANTERIOR LEADS- CONSIDER ISCHEMIA ABNORMAL ECG Compared to ECG 02/27/2025 11:51:14 NO SIGNIFICANT CHANGE Electronically Signed On 02-27-2025 15:07:41 CDT by Latrell Jamil D.O.
--- NOTE | 2025-02-27 15:03 | P.HP_ITS ---
H&P: HPI History of Present Illness Date/Time: 02/27/25 15:03 Chief Complaint: Chest pain Narrative: 44-year-old female history of hypertension presents the hospital with chest pain. Patient is complaining of allergy symptoms for the last 2 weeks including headache. Taken yesterday she started complaining of chest pain intermittent right side. Patient states that the pain is been going on for a couple days and she got worried. She states that for the last 2 weeks or so she has been lying around her house not doing much due to not working. She states that she has not been doing her walking and she is normally active. Patient denies taking control, smoking, recent travel or surgery. She denies family history of blood dyscrasias or its sickle cell anemia. Work shows hemoglobin 11.4, platelets of 426, D-dimer 0.56, chloride of 108 BUN of 6, 1st troponin negative, urine negative, chest CTA shows small filling defects in right upper lobe Suspicious for PE and enlarged fibroid ut erus. Review of Systems Review of Systems: 12 systems were reviewed and are negativ e except for as per HPI. [facility] Past Medical History Medical History (Updated 02/27/25 @ 15:13 by Catherine Urena APRN) Hypertension COVID-19 Seasonal allergies Family History Family History (Updated 02/27/25 @ 18:27 by Brittany Downs RN) Sibling Asthma Hypertension Mother Asthma Hypertension Grandparent Chronic obstructive pulmonary disease Grandparent Colon cancer Sibling History of blood clots Social History Social History Smoking status: Never smoker Alcohol intake: never Substance use: never Lack of Transportation: No Lack of Food: Never True Current Housing: I Have Housing Concerned About Future Housing: No Difficulty Paying Gas/Electric Bills: No Difficulty Paying for Meds: No Currently Unemployed: No Education: Trade/Vocational Certificate Difficulty w/ Childcare or Family Care: No Gender identity (if verbalized by the patient): Female Spiritual care concerns: No Meds Home Medications and Allergies Home Medications ?Medication ?Instructions ?Recorded ?Confirmed ?Type loratadine 10 mg tablet (Claritin) 10 mg PO HS 06/07/20 02/27/25 History amlodipine 5 mg tablet 5 mg PO HS 02/27/25 02/27/25 History ascorbic acid (vitamin C) 500 mg 500 mg PO HS 02/27/25 02/27/25 History tablet (Vitamin C) cholecalciferol (vitamin D3) 50 50 mcg PO HS 02/27/25 02/27/25 History mcg (2,000 unit) capsule (Vitamin D3) ferrous sulfate 325 mg (65 mg 325 mg PO HS 02/27/25 02/27/25 History iron) tablet fluoxetine 40 mg capsule 40 mg PO HS 02/27/25 02/27/25 History methylprednisolone 4 mg tablets in 4 mg PO .COMPLEX 02/27/25 02/27/25 History a dose pack omeprazole 40 mg capsule,delayed 40 mg PO HS 02/27/25 02/27/25 History release zolpidem 5 mg tablet 5 mg PO DAILY 02/27/25 02/27/25 History Allergies Allergy/AdvReac Type Severity Reaction Status Date / Time amoxicillin Allergy Weakness Verified 02/22/21 01:29 peanut Allergy Hives Verified 02/22/21 01:29 Vital Signs Vital Signs - 24 hr 02/27/25 11:47 02/27/25 11:49 02/27/25 11:50 Pulse Rate 94 92 90 Respiratory Rate 20 21 H 17 Blood Pressure 140/104 H 140/104 H Pulse Oximetry 100 100 100 Oxygen Delivery Room Air 02/27/25 11:51 02/27/25 12:00 02/27/25 12:15 Pulse Rate 88 86 Respiratory Rate 18 18 Blood Pressure Pulse Oximetry 100 100 100 Oxygen Delivery Room Air 02/27/25 12:30 02/27/25 12:31 02/27/25 12:32 Pulse Rate 79 82 79 Respiratory Rate 15 17 18 Blood Pressure 112/77 112/77 Pulse Oximetry 100 100 100 Oxygen Delivery 02/27/25 12:45 02/27/25 12:46 02/27/25 13:00 Pulse Rate 81 84 100 Respiratory Rate 20 18 16 Blood Pressure 116/74 Pulse Oximetry 100 100 100 Oxygen Delivery 02/27/25 13:01 02/27/25 13:15 02/27/25 13:16 Pulse Rate 81 91 83 Respiratory Rate 15 20 20 Blood Pressure 111/75 100/59 L Pulse Oximetry 100 100 100 Oxygen Delivery 02/27/25 13:30 02/27/25 13:31 02/27/25 13:45 Pulse Rate 79 77 79 Respiratory Rate 17 16 18 Blood Pressure 108/72 Pulse Oximetry 100 100 100 Oxygen Delivery 02/27/25 13:46 02/27/25 14:00 02/27/25 14:01 Pulse Rate 78 76 Respiratory Rate 18 16 Blood Pressure 97/64 L 97/60 L Pulse Oximetry 100 100 Oxygen Delivery 02/27/25 14:20 02/27/25 14:30 02/27/25 14:43 Pulse Rate 82 79 Respiratory Rate 25 H 17 17 Blood Pressure 111/77 Pulse Oximetry 100 100 100 Oxygen Delivery 02/27/25 14:45 02/27/25 14:46 Pulse Rate 83 82 Respiratory Rate 19 21 H Blood Pressure 128/88 Pulse Oximetry 100 100 Oxygen Delivery Exam Narrative: General: well appearing, appears stated age. HEENT: normocephalic, atraumatic. Mucous membranes moist. EOMI, PERRLA, bilateral sclera anicteric, no conjunctival injection. Neck supple without JVD, lymphadenopathy, or bruit. Respiratory: clear to ascultation bilaterally. No rales/rhonic/wheezes. Cardiovascular: Regular rate and rhythm, normal S1-S2 upon ascultation. No murmurs, rubs, or clicks. PMI is nondisplaced, capillary refill less than 3 second. Abdomen: Soft, round, no pulsatile masses, nondistended and nontender. No rebound, no guarding. No CVA tenderness, no hepatosplenomegaly. Bowel sounds present to all four quadrants. No high pitch or tinkling sounds, resonant to percussion. Extremities: No cyanosis, clubbing, or edema present. Pulses are palpable 2/2. Active ROM to all four extremities. Neuro: Alert and orientated x 4. PERRLA. Cranial nerves 2-12 intact without focal deficit. Skin: Warm, dry, and intact, without rash, erythema, or lesion. Psych: pleasant, cooperative, normal speech, normal affect, no hallucinations, no dysarthia H&P: Results Labs Labs: Short CBC 02/27/25 Range/Units 11:58 WBC 7.7 (4.5-10.0) K/mm3 Hgb 11.4 L (12.0-15.0) g/dL Hct 35.4 L (37.0-47.0) % Plt Count 426 H (150-375) k/mm3 [facility] 02/27/25 11:58 Sodium 141 Potassium 3.8 Chloride 108 H Carbon Dioxide 24 BUN 6 L Creatinine 0.76 Glucose 115 H Calcium 9.0 Cardiac Enzymes 02/27/25 Range/Units 11:58 Troponin I < 0.012 (0.000-0.034) ng/mL Liver Function 02/27/25 Range/Units 11:58 Total Bilirubin 0.7 (0.2-1.3) mg/dL AST 18 (14-36) U/L ALT 15 (6-35) U/L Alkaline Phosphatase 67 (38-126) U/L Albumin 4.1 (3.5-5.1) g/dL Assessment and Plan Assessment and plan (1) Pulmonary embolism: Code(s): I26.99 - Other pulmonary embolism without acute cor pulmonale Status: Acute Assessment and Plan: Possibly from inactivity Heparin drip per protocol Trend troponins (2) Chest pain: Code(s): R07.9 - Chest pain, unspecified Status: Acute Assessment and Plan: See plan above (3) Fibroid uterus: Code(s): D25.9 - Leiomyoma of uterus, unspecified Status: Acute Assessment and Plan: Follow-up with splitter machine (4) Seasonal allergies: Code(s): J30.2 - Other seasonal allergic rhinitis Status: Acute Assessment and Plan: Continue home meds (5) Hypertension: Code(s): I10 - Essential (primary) hypertension Status: Acute Assessment and Plan: Continue home meds Quality VTE Prophylaxis VTE prophylaxis: mechanical ordered and pharmacologic ordered Hospitalist MIPS Advance Care Plan I have confirmed that the patient's Advanced Care Plan is present, code status is documented, or surrogate decision maker is listed in patient medical record.: Yes Medication Reconciliation I have utilized all available resources to obtain, update and review the patients current medications (includes all prescriptions, OTC, herbals, cannabis, and nutritional supplements).: Yes
[2025-02-27] MEDS: HEPARIN SOD/D5W 100 UNITS/ML 25,000 UNITS/250 ML BAG 11 UNITS IV CONT (15:15)
[2025-02-27 15:25] LABS: Troponin I < 0.012 ng/mL (0.000-0.034)
--- NOTE | 2025-02-27 15:57 | PC.NURSE ---
Meal tray ordered
--- NOTE | 2025-02-27 18:16 | ADMGEN ---
This patient, Natalie Gillette, was admitted to IMU Room 214-01. Patient/family oriented to hospital policies and general routines including ID bracelet, bed and alarms, visiting hours, pain management, procedures, bathroom and other care routines, personal items, smoking policy, room service/diet, and visiting hours. Information on how to activate the Rapid Response Team has been discussed. Patient/Family are encouraged to report perceived risks to care and to ask questions if they do not understand what they are told or what they should do.
[2025-02-27 20:04] LABS: Troponin I < 0.012 ng/mL (0.000-0.034)
[2025-02-27] MEDS: LORATADINE 10 MG TABLET PO (21:09)
[2025-02-27 21:35] LABS: Partial Thromboplastin Time 114.1 Seconds (22.3-36.8)
[2025-02-28] VITALS (11 sets, daily range): BP systolic 92–118; BP diastolic 51–73; PULSE 79–104; RESP 16–18; TEMP 36.3–36.9; O2SAT 98–100
[2025-02-28] MEDS: ACETAMINOPHEN 325 MG TABLET 650 MG PO ×2 (04:12→15:54)
[2025-02-28 04:14] LABS: Hematocrit 33.6 % (37.0-47.0); Hemoglobin 10.9 g/dL (12.0-15.0); Immature Granulocyte Percent A 0.3 % (0-0.5); Lymphocytes Absolute Auto 4.21 K/mm3 (0.9-3.2); Mean Corpuscular HGB Conc 32.4 g/dl (32-36); Mean Corpuscular Hemoglobin 27.6 pg (26-34); Mean Corpuscular Volume 85.1 fl (80-100); Nucleated Red Blood Cells Absolute Auto 0.000 K/mm3 (0.0-0.012); Nucleated Red Blood Cells Perc 0.0 % (0.0-0.2); Platelet Count Result 392 k/mm3 (150-375); Red Blood Count 3.95 M/mm3 (4.2-5.4); White Blood Count 11.5 K/mm3 (4.5-10.0)
[2025-02-28 04:33] LABS: Anion Gap 6 mmol/L (4-12); Blood Urea Nitrogen 6 mg/dL (7-17); Calcium 8.8 mg/dL (8.4-10.2); Carbon Dioxide 23 mmol/L (22-30); Chloride 106 mmol/L (98-107); Estimated Glomerular Filt Rate > 60; Glucose 105 mg/dL (65-110); Potassium 3.3 mmol/L (3.4-5.0); Sodium 135 mmol/L (137-145)
[2025-02-28 04:46] LABS: Partial Thromboplastin Time 84.3 Seconds (22.3-36.8)
[2025-02-28] MEDS: PANTOPRAZOLE 40 MG TABLET PO (08:20)
[2025-02-28] MEDS: ASPIRIN 81 MG CHEWABLE TABLET PO (08:20)
--- NOTE | 2025-02-28 10:35 | PM.IMPN ---
Progress Note: A&P Assessment and Plan (1) Hypertension: Code(s): I10 - Essential (primary) hypertension Status: Acute (2) Pulmonary embolism: Code(s): I26.99 - Other pulmonary embolism without acute cor pulmonale Status: Acute (3) Fibroid uterus: Code(s): D25.9 - Leiomyoma of uterus, unspecified Status: Acute Plan 44-year-old female with history of hypertension, vitamin B12 deficiency, seasonal allergies presents to [facility] ER on 02/27/2025 with a complaint of right-sided chest heaviness and intermittent headache. She also has some shortness of breath on exertion. She has had sinus congestion and allergies for the past 2 weeks. She has been sitting around the house when she usually is active. Denies sick contacts, cough, fever, nausea vomiting, fainting, abdominal pain, diarrhea, recent travel, recent surgeries, history of personal PE or DVT, sickle cell anemia or blood dyscrasia. Denies smoking, illicit drug use, denies taking control. She has a brother who gets blood clots but she does not know what the underlying cause is. Hemoglobin on admission 11.4. WBC 7.7. CTA chest PE protocol demonstrates small filling defects right upper lobe segmental pulmonary artery suspicious for PE, small thrombus burden. Enlarged fibroid uterus. She was started on a heparin GTT. ----- Discontinue heparin GTT. Start Eliquis 10 mg p.o. b.i.d.. She will be transferred to medical floor. Cycle hemoglobin. She was started on aspirin, we will discontinue that. Patient would like to eat a Caesar salad but cannot due to heart healthy diet. We will change to regular diet. She has soft blood pressures anyhow. [facility]. Advising the patient to discontinue that for now and report to her stamps or coins salesperson there to discuss further treatment for vitamin B12 and further investigation as to the cause of the pulmonary embolism. Follow-up with lpn private duty on the fibroid uterus. She has no abdominal pain. No vaginal bleeding. Leukocytosis. Mild. No bandemia. Afebrile. Continue to trend. Check procalcitonin. Patient wishes to be full code. Eliquis 10 mg p.o. b.i.d.. Saline lock IV. Regular diet. The patient is independent at baseline. Subjective Date/time seen: 02/28/25 10:35 Interval history: No major acute overnight events. Patient reports no chest pain, no shortness of breath, she did walk to the bathroom. Review of Systems Review of Systems: All systems reviewed & are unremarkable except as noted in HPI and below (Subjective) Exam Const: General: comfortable and no acute distress Other: A&O x3 HENMT: Mouth: Yes moist mucous membranes Eyes: Pupils: Equal, round and reactive pupils present Neck: Neck: supple Resp: Effort & Inspection: normal respiratory effort Auscultation: clear to auscultation bilaterally Cardio: Rate: regular rate Rhythm: regular rhythm Heart sounds: no gallops GI: Inspection: non-distended GI Palp: Yes Soft to palpation Neuro: Motor exam (neuro): 5/5 motor strength present throughout Extrem: General: no edema Objective Data Vital Signs Vital Signs: Vital Signs - 24 hr 02/27/25 11:47 02/27/25 11:49 02/27/25 11:50 Temperature Pulse Rate 94 92 90 Respiratory Rate 20 21 H 17 Blood Pressure 140/104 H 140/104 H Pulse Oximetry 100 100 100 Oxygen Delivery Room Air 02/27/25 11:51 02/27/25 12:00 02/27/25 12:15 Temperature Pulse Rate 88 86 Respiratory Rate 18 18 Blood Pressure Pulse Oximetry 100 100 100 Oxygen Delivery Room Air 02/27/25 12:30 02/27/25 12:31 02/27/25 12:32 Temperature Pulse Rate 79 82 79 Respiratory Rate 15 17 18 Blood Pressure 112/77 112/77 Pulse Oximetry 100 100 100 Oxygen Delivery 02/27/25 12:45 02/27/25 12:46 02/27/25 13:00 Temperature Pulse Rate 81 84 100 Respiratory Rate 20 18 16 Blood Pressure 116/74 Pulse Oximetry 100 100 100 Oxygen Delivery 02/27/25 13:01 02/27/25 13:15 02/27/25 13:16 Temperature Pulse Rate 81 91 83 Respiratory Rate 15 20 20 Blood Pressure 111/75 100/59 L Pulse Oximetry 100 100 100 Oxygen Delivery 02/27/25 13:30 02/27/25 13:31 02/27/25 13:45 Temperature Pulse Rate 79 77 79 Respiratory Rate 17 16 18 Blood Pressure 108/72 Pulse Oximetry 100 100 100 Oxygen Delivery 02/27/25 13:46 02/27/25 14:00 02/27/25 14:01 Temperature Pulse Rate 78 76 Respiratory Rate 18 16 Blood Pressure 97/64 L 97/60 L Pulse Oximetry 100 100 Oxygen Delivery 02/27/25 14:20 02/27/25 14:30 02/27/25 14:43 Temperature Pulse Rate 82 79 Respiratory Rate 25 H 17 17 Blood Pressure 111/77 Pulse Oximetry 100 100 100 Oxygen Delivery 02/27/25 14:45 02/27/25 14:46 02/27/25 15:00 Temperature Pulse Rate 83 82 74 Respiratory Rate 19 21 H 14 Blood Pressure 128/88 Pulse Oximetry 100 100 100 Oxygen Delivery 02/27/25 15:15 02/27/25 15:30 02/27/25 15:32 Temperature Pulse Rate 79 82 88 Respiratory Rate 18 19 20 Blood Pressure 117/94 H Pulse Oximetry 100 100 Oxygen Delivery 02/27/25 15:45 02/27/25 16:15 02/27/25 16:17 Temperature Pulse Rate 81 95 96 Respiratory Rate 20 20 22 H Blood Pressure 153/136 H Pulse Oximetry 100 Oxygen Delivery 02/27/25 16:30 02/27/25 16:45 02/27/25 17:00 Temperature Pulse Rate 86 81 94 Respiratory Rate 20 17 16 Blood Pressure Pulse Oximetry 100 100 Oxygen Delivery 02/27/25 17:01 02/27/25 17:21 02/27/25 18:13 Temperature Pulse Rate 108 H 80 80 Respiratory Rate 20 20 18 Blood Pressure 111/99 H 111/99 H Pulse Oximetry 100 100 Oxygen Delivery Room Air 02/27/25 18:13 02/27/25 18:21 02/27/25 20:00 Temperature 98.5 F Pulse Rate 95 80 79 Respiratory Rate 18 Blood Pressure 121/69 Pulse Oximetry 100 Oxygen Delivery 02/27/25 20:29 02/27/25 20:50 02/27/25 22:00 Temperature 98.3 F Pulse Rate 74 85 Respiratory Rate 18 Blood Pressure 126/78 Pulse Oximetry 100 Oxygen Delivery Room Air 02/28/25 00:00 02/28/25 00:05 02/28/25 00:22 Temperature 98.1 F Pulse Rate 85 104 H Respiratory Rate 18 Blood Pressure 117/68 Pulse Oximetry 98 Oxygen Delivery Room Air 02/28/25 02:00 02/28/25 04:00 02/28/25 04:15 Temperature Pulse Rate 84 87 Respiratory Rate Blood Pressure Pulse Oximetry Oxygen Delivery Room Air 02/28/25 04:18 02/28/25 06:00 02/28/25 08:00 Temperature 98 F 97.4 F L Pulse Rate 85 83 85 Respiratory Rate 18 18 Blood Pressure 92/51 L 101/62 Pulse Oximetry 100 100 Oxygen Delivery 02/28/25 08:00 02/28/25 08:00 Temperature Pulse Rate 79 Respiratory Rate Blood Pressure Pulse Oximetry Oxygen Delivery Room Air Intake/Output Intake/Output: Intake & Output 02/25/25 02/26/25 02/27/25 02/28/25 23:59 23:59 23:59 23:59 Intake Total 73 70.8 Balance 73 70.8 Meds/Results Medications: Active Medications Generic Name Dose Route Start Last Admin Trade Name Freq PRN Reason Stop Dose Admin Acetaminophen 650 mg 02/27/25 15:10 02/28/25 04:12 Acetaminophen 325 Mg Tablet PO 650 mg Q4H PRN Administration Mild Pain (1-3) or Fever Amlodipine Besylate 5 mg 02/27/25 21:00 02/27/25 21:09 Amlodipine Besylate 5 Mg Tablet PO 5 mg HS JUSTICE Administration Apixaban 10 mg 02/28/25 21:00 Apixaban 5 Mg Tablet PO Q12HR JUSTICE Fluoxetine HCl 40 mg 02/27/25 21:00 02/27/25 21:12 Fluoxetine Hcl 20 Mg Capsule PO 40 mg HS JUSTICE Administration Loratadine 10 mg 02/27/25 21:00 02/27/25 21:09 Loratadine 10 Mg Tablet PO 10 mg HS JUSTICE Administration Zolpidem Tartrate 5 mg 02/28/25 09:00 02/28/25 08:20 Zolpidem Tartrate (*Crx) 5 Mg Tablet PO Not Given DAILY [facility] Radiology Results: ITS Impressions Chest X-Ray 02/27/25 12:28 IMPRESSION: 1: NO ACUTE CARDIOPULMONARY DISEASE. Chest/Abdomen/Pelvis CTA 02/27/25 14:20 IMPRESSION: 1. Small filling defects right upper lobe segmental pulmonary arteries, suspicious for pulmonary embolism, small thrombus burden. 2: Enlarged fibroid uterus. Labs Labs: Laboratory Results - last 24 hr 02/27/25 02/27/25 02/27/25 11:58 14:29 14:54 WBC 7.7 RBC 4.13 L Hgb 11.4 L Hct 35.4 L MCV 85.7 MCH 27.6 MCHC 32.2 RDW 13.7 Plt Count 426 H MPV 8.6 Immature Gran % (Auto) 0.4 Neut % (Auto) 73.8 H Lymph % (Auto) 20.2 [place] % (Auto) 4.8 Eos % (Auto) 0.4 Baso % (Auto) 0.4 Lymph # (Auto) 1.56 [place] # (Auto) 0.4 Eos # (Auto) 0.0 Baso # (Auto) 0.0 Abs Immat Gran (auto) 0.03 Absolute Neuts (auto) 5.7 Absolute Nucleated RBC 0.000 Nucleated RBC % 0.0 PT 12.8 INR 1.0 APTT 27.5 D-Dimer 0.56 H Sodium 141 Potassium 3.8 Chloride 108 H Carbon Dioxide 24 Anion Gap 9 BUN 6 L Creatinine 0.76 Estim Creat Clear Calc Not Reportable Estimated GFR > 60 Glucose 115 H Calcium 9.0 Total Bilirubin 0.7 AST 18 ALT 15 Alkaline Phosphatase 67 Troponin I < 0.012 < 0.012 Total Protein 7.4 Albumin 4.1 Lipase 44 POC Urine HCG, Qual Negative 02/27/25 02/27/25 02/28/25 19:06 21:14 04:06 WBC 11.5 H RBC 3.95 L Hgb 10.9 L Hct 33.6 L MCV 85.1 MCH 27.6 MCHC 32.4 RDW 13.8 Plt Count 392 H MPV 8.5 Immature Gran % (Auto) 0.3 Neut % (Auto) 56.5 Lymph % (Auto) 36.5 [place] % (Auto) 5.3 Eos % (Auto) 1.0 Baso % (Auto) 0.4 Lymph # (Auto) 4.21 H [place] # (Auto) 0.6 Eos # (Auto) 0.1 Baso # (Auto) 0.1 Abs Immat Gran (auto) 0.04 H Absolute Neuts (auto) 6.5 Absolute Nucleated RBC 0.000 Nucleated RBC % 0.0 PT INR APTT 114.1 H 84.3 H D-Dimer Sodium 135 L Potassium 3.3 L Chloride 106 Carbon Dioxide 23 Anion Gap 6 BUN 6 L Creatinine 0.62 L Estim Creat Clear Calc Not Reportable Estimated GFR > 60 Glucose 105 Calcium 8.8 Total Bilirubin AST ALT Alkaline Phosphatase Troponin I < 0.012 Total Protein Albumin Lipase POC Urine HCG, Qual
--- NOTE | 2025-02-28 12:52 | PC.NURSE ---
This patient, Natalie Gillette, was transferred to [facility] on 02/28/25 at 1252. Personal belongings sent with patient. Report given to Jeremy SAN. Appropriate documentation sent with patient.
[2025-02-28] MEDS: LORATADINE 10 MG TABLET PO (21:51)
[2025-02-28] MEDS: APIXABAN 5 MG TABLET 10 MG PO (21:51)
[2025-03-01 05:27] LABS: Hematocrit 34.7 % (37.0-47.0); Hemoglobin 11.4 g/dL (12.0-15.0); Immature Granulocyte Percent A 0.4 % (0-0.5); Lymphocytes Absolute Auto 3.08 K/mm3 (0.9-3.2); Mean Corpuscular HGB Conc 32.9 g/dl (32-36); Mean Corpuscular Hemoglobin 27.7 pg (26-34); Mean Corpuscular Volume 84.4 fl (80-100); Nucleated Red Blood Cells Absolute Auto 0.000 K/mm3 (0.0-0.012); Nucleated Red Blood Cells Perc 0.0 % (0.0-0.2); Platelet Count Result 378 k/mm3 (150-375); Red Blood Count 4.11 M/mm3 (4.2-5.4); White Blood Count 8.1 K/mm3 (4.5-10.0)
[2025-03-01 05:49] LABS: Anion Gap 6 mmol/L (4-12); Blood Urea Nitrogen 11 mg/dL (7-17); Calcium 9.2 mg/dL (8.4-10.2); Carbon Dioxide 27 mmol/L (22-30); Chloride 106 mmol/L (98-107); Estimated Glomerular Filt Rate > 60; Glucose 112 mg/dL (65-110); Magnesium 1.7 mg/dL (1.6-2.3); Potassium 3.5 mmol/L (3.4-5.0); Sodium 139 mmol/L (137-145)
[2025-03-01 06:22] LABS: Procalcitonin 0.0 ng/mL
[2025-03-01 06:49] VITALS: BP 104/69; PULSE 84; RESP 14; TEMP 36.4; O2SAT 100
[2025-03-01 08:00] VITALS: BP 110/74; PULSE 80; RESP 15; TEMP 36.4; O2SAT 100
[2025-03-01] MEDS: APIXABAN 5 MG TABLET 10 MG PO (09:56)
--- NOTE | 2025-03-01 13:48 | P.DS_ITS ---
DS: Admitting Diagnosis Discharge Date 03/01/2025 Admitting Diagnosis Shortness of breath DS: Discharge Diagnosis Discharge Diagnosis (1) Pulmonary embolism: Code(s): I26.99 - Other pulmonary embolism without acute cor pulmonale Status: Acute DS: Summary Hospital Course Hospital Course: 44-year-old female with history of hypertension, vitamin B12 deficiency, seasonal allergies presents to [facility] ER on 02/27/2025 with a complaint of right-sided chest heaviness and intermittent headache. She also has some shortness of breath on exertion. She has had sinus congestion and allergies for the past 2 weeks. She has been sitting around the house when she usually is active. Denies sick contacts, cough, fever, nausea vomiting, fainting, abdominal pain, diarrhea, recent travel, recent surgeries, history of personal PE or DVT, sickle cell anemia or blood dyscrasia. Denies smoking, illicit drug use, denies taking control. She has a brother who gets blood clots but she does not know what the underlying cause is. Hemoglobin on admission 11.4. WBC 7.7. CTA chest PE protocol demonstrates small filling defects right upper lobe segmental pulmonary artery suspicious for PE, small thrombus burden. Enlarged fibroid uterus. She was started on a heparin GTT. ----- Heparin switch to Eliquis. She will take 10 mg p.o. b.i.d. for 7 days total and then switch to 5 mg p.o. b.i.d. thereafter. Discussed the risk versus benefits and proper dosing and the patient verbalized her understanding. Advised the patient to not take vitamin B12 injections and to follow-up with her director retail brand development with [facility] on further management of this as well as further investigation of possible hereditary thrombosis. The patient was in understanding and will call her director retail brand development right away. All of her questions and concerns were answered to satisfaction. Lower extremity venous Dopplers have been ordered. She is advised to follow with car painter on the fibroid uterus. She did not have abdominal/pelvic pain or vaginal bleeding. Leukocytosis has resolved. Afebrile. Likely due to pulmonary embolism. There were no other signs or symptomatology to indicate infection and her procalcitonin was 0. The patient is discharged in stable condition to home on 03/01/2025 with follow- up with PCP, car painter, director retail brand development. She was full code during the admission. Time Spent with Patient Time attestation: Total time spent providing and/or coordinating discharge services: Time spent: Greater than 30 minutes Exam Const: General: comfortable and no acute distress Other: A&O x3 HENMT: Mouth: Yes moist mucous membranes Eyes: Pupils: Equal, round and reactive pupils present Neck: Neck: supple Resp: Effort & Inspection: normal respiratory effort Auscultation: clear to auscultation bilaterally Cardio: Rate: regular rate Rhythm: regular rhythm Heart sounds: no gallops GI: Inspection: non-distended GI Palp: Yes Soft to palpation Neuro: Motor exam (neuro): 5/5 motor strength present throughout Extrem: General: no edema DS: Data Data Completed and Pending Labs on day of discharge: Labs from last 24 hours 03/01/25 05:05 WBC 8.1 RBC 4.11 L Hgb 11.4 L Hct 34.7 L MCV 84.4 MCH 27.7 MCHC 32.9 RDW 13.7 Plt Count 378 H MPV 8.7 Immature Gran % (Auto) 0.4 Neut % (Auto) 51.6 Lymph % (Auto) 37.9 [place] % (Auto) 8.4 Eos % (Auto) 1.2 Baso % (Auto) 0.5 Lymph # (Auto) 3.08 [place] # (Auto) 0.7 H Eos # (Auto) 0.1 Baso # (Auto) 0.0 Abs Immat Gran (auto) 0.03 Absolute Neuts (auto) 4.2 Absolute Nucleated RBC 0.000 Nucleated RBC % 0.0 Sodium 139 Potassium 3.5 Chloride 106 Carbon Dioxide 27 Anion Gap 6 BUN 11 D Creatinine 0.74 Estim Creat Clear Calc Not Reportable Estimated GFR > 60 Glucose 112 H Calcium 9.2 Magnesium 1.7 Procalcitonin 0.0 Discharge Plan Discharge Attending physician on discharge: Maria T Lacey Discharging Clinician: Maria T Lacey Patient Disposition: Home Activity: november shower Diet: as tolerated Patient Instructions: Antibiotic Form, Apixaban (By mouth) Patient Language: Cymraes Stand Alone Forms: General Discharge Information Follow-up/Referrals: Cristian,DANN Irizarry [Primary Care Provider] - Discharge Medications: New Eliquis 5 mg Tablet 10 mg PO Q12HR Qty: 12 0RF Rx Instructions: Take 10 mg dose twice per day for another 12 doses. Afterwards, switch to 5 mg dose twice per day and follow-up with Hematology/PCP. Eliquis 5 mg tablet 5 mg PO BID Qty: 60 0RF Rx Instructions: Start on 03/07/2025. Do not combine with 10 mg dosing. Continued loratadine [Claritin] 10 mg Tablet 10 mg PO HS ferrous sulfate 325 mg (65 mg iron) tablet 325 mg PO HS zolpidem 5 mg tablet 5 mg PO DAILY Patient Comments: Pt works nights and usually takes medications in AM ascorbic acid (vitamin C) [Vitamin C] 500 mg tablet 500 mg PO HS amlodipine 5 mg tablet 5 mg PO HS omeprazole 40 mg capsule,delayed release(DR/EC) 40 mg PO HS fluoxetine 40 mg capsule 40 mg PO HS cholecalciferol (vitamin D3) [Vitamin D3] 50 mcg (2,000 unit) capsule 50 mcg PO HS Discontinued methylprednisolone 4 mg tablets,dose pack 4 mg PO .COMPLEX Rx Instructions: 4 mg orally s; 6 tablets on day 1 and decrease by 1 tablet each day for a total of 6 days Date of admission: 02/27/25 14:50 Primary Care Provider: CristianEdie Admitting Provider: Iris Camara Attending physician on admission: Irsi Camara Condition: Improved Hospitalist MIPS Heart Failure (Exclusion) Patient has history of Heart Transplant or Left Ventricular Assistive Device?: No IF YES, STOP HERE Heart Failure (Qualifier) Patient has current or prior documentation of LVEF less than or equal to 40%, or mod/servere depressed LVSF?: No IF NO, STOP HERE
[2025-03-01 16:00] VITALS: BP 110/67; PULSE 89; RESP 16; TEMP 36.4; O2SAT 100
== END 2025-03-01 17:20 | disposition home or self-care (01) ==
LOC: ANHED 14:48 → ANH2MED 03-01 07:45 → ANHIMU 03-02 09:42
PROVIDERS: Emergency Medicine; Nurse Practitioner Gerontology; Admitting Provider Internal Medicine; Emergency Provider Emergency Medicine; PCP Nurse Practitioner Family; Visit Provider General Practice
DX: I26.99 Other pulmonary embolism without acute cor pulmonale (principal); R07.9 Chest pain, unspecified; D72.829 Elevated white blood cell count, unspecified; E53.8 Deficiency of other specified B group vitamins; D25.9 Leiomyoma of uterus, unspecified; J30.2 Other seasonal allergic rhinitis; I10 Essential (primary) hypertension
CPT/HCPCS: 36415; 71046; 71275; 74177; 80048; 80053; 81025; 83690; 83735; 84145; 84484; 85025; 85380; 85610; 85730; 93005; 93970; 96365; 96366; 96375; 99285; A9270; G0378; G0379; J1644; Q9967

== ENCOUNTER 2025-06-27 19:37 | Emergency (ER) | payer MEDICAID, SELFPAY ==
--- OUTSIDE RECORDS SUMMARY | 2025-06-27 19:39 | XMS_ITS | Clinical Summary ---
Author Organization [facility] Address [address] [place] [address] Care Team Providers Care Die Finisher Forging Name Role Phone Edie Foster NP Primary Care Provider [phone] Allergies Active Allergy Reactions Criticality Noted Date Comments Amoxicillin Hives Medium 03/27/2022 Diphenhydramine Hives Medium 03/03/2024 Doxycycline Hcl Hives Medium 03/27/2022 Peanut Hives Medium 02/22/2021 Medications zolpidem (AMBIEN) 5 mg tablet Take 1 tablet (5 mg total) by mouth nightly 022 Active omeprazole (PriLOSEC) 40 mg capsule Take by mouth daily Active nitrofurantoin monohydrate (MACROBID) 100 mg capsule Take 1 capsule (100 mg total) by mouth 2 (two) times a day 024 Active neomycin-polymyxi n-HC (CORTISPORIN) 3.5-10,000-1 mg/mL-unit/mL-% otic suspension Acti ve ipratropium (Atrovent HFA) 17 mcg/actuation inhaler inhale 2 puff by inhalation route 4 times every day Active fluticasone propionate (FLONASE) 50 mcg/actuation nasal spray Administer 2 sprays into affected nostril(s) daily 021 Active fluticasone propion-salmetero L (ADVAIR DISKUS) 500-50 mcg/dose diskus inhaler INHALE 1 (ONE) PUFF BY MOUTH 2 TIMES DAILY Active FLUoxetine (PROzac) 40 mg capsule Take by mouth daily Active ferrous sulfate 325 mg (65 mg of elemental iron) tablet Take 1 tablet (325 mg total) by mouth 019 Active ergocalciferol (VITAMIN D) 50,000 unit capsule Take 1 capsule (50,000 Units total) by mouth once a week Active desloratadine (CLARINEX ORAL) Acti ve cholecalciferol (VITAMIN D-3) 50,000 unit capsule TAKE 1 CAPSULE BY MOUTH ONCE A WEEK FOR 8 DOSES 022 Active ascorbic acid with tammy hips 500 mg tablet TAKE 1 TABLET BY MOUTH ONCE DAILY AT SAME TIME FERROUS SULFATE (IRON) TABLET 024 Active amLODIPine (NORVASC) 5 mg tablet 022 Active albuterol HFA (PROVENTIL HFA,VENTOLIN HFA,PROAIR HFA) 90 mcg/actuation inhaler albuterol sulfate HFA 90 mcg/actuation aerosol inhaler INHALE 2 (TWO) PUFFS BY MOUTH EVERY 4 HOURS NEEDED FOR SHORTNESS OF BREATH, WHEEZING OR COUGH 017 Active loratadine (CLARITIN) 10 mg tablet Take 1 tablet (10 mg total) by mouth daily Active ascorbic acid (ascorbic acid with tammy hips) 500 mg tablet,chewable Acti ve apixaban (ELIQUIS) 5 mg tablet Take 1 tablet (5 mg total) by mouth 2 (two) times a day 025 Active azelastine (ASTELIN) 137 mcg (0.1 %) nasal spray SPRAY 1 SPRAY INTO EACH NOSTRIL TWICE A DAY 025 Active ondansetron ODT (ZOFRAN-ODT) 4 mg disintegrating tablet 025 Active ondansetron ODT (ZOFRAN-ODT) 4 mg disintegrating tabletIndications :Anemia, unspecified type,Constipation , unspecified constipation type Take 1 tablet (4 mg total) by mouth every 6 (six) hours as needed for nausea or vomiting 4 tablet 025 Active bisacodyl EC (DULCOLAX EC) 5 mg EC tabletIndications :constipation Take as directed by office for colonoscopy prep. 8 tablet 025 Active ondansetron (ZOFRAN) 4 mg tabletIndications :Anemia, unspecified type,Constipation , unspecified constipation type,Abdominal pain, unspecified abdominal location Take 1 tablet (4 mg) total 30 minutes before starting colonoscopy prep. Use the 2nd tablet as needed for nausea and vomiting. 4 tablet Active bisacodyl EC (DULCOLAX EC) 5 mg EC tabletIndications :constipation Take 1 tablet (5 mg total) by mouth daily as needed for constipation 8 tablet 025 2024 Discontinued bisacodyl EC (DULCOLAX EC) 5 mg EC tabletIndications :constipation Take 1 tablet (5 mg total) by mouth daily as needed for constipation 8 tablet 2024 Discontinued polyethylene glycol (GaviLyte-N) 236-22.74-6.74 -5.86 gram solutionIndicatio ns:Anemia, unspecified type,Constipation , unspecified constipation type,Abdominal pain, unspecified abdominal location Take 4,000 mL by mouth once for 1 dose 8000 mL 2024 Active Problems Problem Noted Date Diagnosed Date Constipation 03/16/2025 Assessment & Plan (03/16/2025 2:13 PM CDT): Reports that she has occasional complaints of constipation where she will not have a bowel movement for a few days. Reports that she can also have complaints of right upper quadrant discomfort. Previous colonoscopy back in May was aborted due to solid stool being in colon. Ultrasound/HIDA scan were completed that were unremarkable. -Colonoscopy scheduled at this time -Educated on ways to help with constipation with including increased fiber supplementation IE Metamucil, drinking prune juice, adding a daily probiotic like align or Eveo -Did discussed possible trial of medication like Linzess if complaints continue -Discussed how certain medications including iron can increase complaints of constipation. Orders: Case Request Operating Room: COLONOSCOPY polyethylene glycol (GoLYTELY) 236-22.74-6.74 -5.86 gram solution; Take 4,000 mL by mouth once for 1 dose polyethylene glycol (GoLYTELY) 236-22.74-6.74 -5.86 gram solution; Take 4,000 mL by mouth once for 1 dose bisacodyl EC (DULCOLAX EC) 5 mg EC tablet; Take 1 tablet (5 mg total) by mouth daily as needed for constipation ondansetron ODT (ZOFRAN-ODT) 4 mg disintegrating tablet; Take 1 tablet (4 mg total) by mouth every 6 (six) hours as needed for nausea or vomiting History of colon polyps 06/10/2024 Abdominal pain 01/17/2024 Assessment & Plan (03/16/2025 2:13 PM CDT): Patient was seen in the ER June 2023 for chest pain radiating to the right upper quadrant. Cardiac workup was negative. Labs were unremarkable with the exception of anemia with a hemoglobin 11.7. CT scan with no acute findings. Ultrasound December 2023 with normal gallbladder. HIDA scan was normal with 73% ejection fraction. EGD in May 2024 showed gastritis. Currently on daily omeprazole. Does report occasional constipation. -Suspect component of irritable bowel syndrome with constipation. Recommended increasing fiber supplementation as well as stool softeners help minimize complaints of constipation. -Discussed possible trial of Linzess Assessment & Plan (01/17/2024 9:12 AM CDT): [...] procedure done. Anemia 01/17/2024 Assessment & Plan (03/16/2025 2:13 PM CDT): Was referred to this office last May for GI consultation have anemia. An EGD showed gastritis and a colonoscopy was aborted due to solid stool being in the colon. She was to reschedule colonoscopy with a two day prep, and never called to get scheduled. -Colonoscopy with 2 day prep scheduled at this time -Possible capsule study for further evaluation Orders: Case Request Operating Room: COLONOSCOPY polyethylene glycol (GoLYTELY) 236-22.74-6.74 -5.86 gram solution; Take 4,000 mL by mouth once for 1 dose polyethylene glycol (GoLYTELY) 236-22.74-6.74 -5.86 gram solution; Take 4,000 mL by mouth once for 1 dose bisacodyl EC (DULCOLAX EC) 5 mg EC tablet; Take 1 tablet (5 mg total) by mouth daily as needed for constipation ondansetron ODT (ZOFRAN-ODT) 4 mg disintegrating tablet; Take 1 tablet (4 mg total) by mouth every 6 (six) hours as needed for nausea or vomiting Assessment & Plan (01/17/2024 9:12 AM CDT): [...] understands and consents to having procedure done. Encounters Date Type Department Care Team Description 06/23/2025 Hospital Encounter [facility] [address] [place] [address] Braden Bhagat MD 06/02/2025 Orders Only [facility] [place] [address] [place] [phone] Braden Bhagat MD Anemia, unspecified type (Primary Dx); Constipation, unspecified constipation type; Abdominal pain, unspecified abdominal location from Last 3 Months Immunizations Immunization Administration Dates Next Due Moderna [...] you have a drink containing alcohol? Never 03/17/2025 Q2: How many drinks containi ng alcohol do you have on a typical day when you are drinking? Patient does not drink Q3: How often do you have si x or more drinks on one occasion? Never 03/17/2025 Personal Safety Answer Date Recorded Have you ever been in or are you currently in a harmful physical or emotional relationship or is someone making you feel afraid or unsafe? Denies 06/10/2024 Comments No Sex and Gender Information Value Date Recorded Sex Assigned at Not on file Legal Sex Female 6:24 PM CHAIN CARRIER Gender Identity Not on file Sexual Orientation Not on file Obstetrics History Para Term AB IAB SAB Ectopic Multiple Livin g Live Births 4 4 4 Date Outcome GA Total Labor Labor/2nd/3rd Weight Sex Type Anes PTL Porsha A1 A5 Name Clin Term Term Term Term Last Filed Vital Signs Vital Sign Reading Time Taken Comments Blood Pressure 112/81 03/16/2025 1:19 PM CDT Pulse 97 03/16/2025 1:19 PM CDT Temperature 36.2 C (97.1 F) 08/04/2024 10:56 AM CHAIN CARRIER Respiratory Rate 16 08/04/2024 10:56 AM CHAIN CARRIER Oxygen Saturation 100% 08/04/2024 10:56 AM CHAIN CARRIER Inhaled Oxygen Concentration - - Weight 81.6 kg (180 lb) 03/16/2025 1:19 PM CDT Height 149.9 cm (4' 11) 03/16/2025 1:19 PM CDT Body Mass Index 36.36 03/16/2025 1:19 PM CDT Plan of Treatment Health Maintenance Due Date Last Done Comments Cervical Cancer Screening 1982 Depression Screening 1982 Hepatitis C Screening 1982 Varicella Vaccines (1 of 2 - 13+ 2-dose series) 1995 Regular Well Visit/Exam 18-64 2000 HPV Vaccines (1 - 3-dose SCD M series) 2009 Pneumococcal vaccine <65 (2 of 2 - PCV) 11/27/2022 11/27/2021 Covid-19 Vaccine (5 - 2024-2 6 season) 2025 09/06/2021, 07/11/2021, 06/11/2021, Additional history exists Influenza Vaccine (#1) 2025 3, 06/28/2022, 07/27/2021, Additional history exists Breast Cancer Screening-Mammogram 09/10/2025 025, 01/10/2023 DTaP/Tdap/Td Vaccine (2 - Td or Tdap) 08/01/2029 08/01/2019 Hepatitis B Screening Completed 08/20/2023 Procedures Procedure Name Priority Date/Time Associated Diagnosis Comments SCREENING MAMMOGRAM BILATERAL W JOCELIN Schedule Routine, Read Routine (OP Routine) 09/10/2024 7:34 AM CHAIN CARRIER Encounter for screening mammogram for malignant neoplasm of breast from Last 3 Months or Most Recently Relevant to Health Maintenance Results * Screening Mammogram Bilateral W Jocelin (09/10/2024 7:34 AM CHAIN CARRIER) Anatomical Region Laterality Modality Breast Bilateral Mammography Impressions 09/10/2024 8:17 AM CHAIN CARRIER BI-RADS ATLAS category (overall): 2 - Benign There is no mammographic evidence of malignancy. A 1 year screening mammogram is recommended. The patient has been or will be contacted. We recommend annual screening mammography for women at average risk of breast cancer beginning at age 40, based on guidelines of the [employer] [employer] (ACR Practice Parameter for the Performance of Screening and Diagnostic Mammography) and [employer] [employer]. For women with and elevated risk of breast cancer, please refer to the ACR Practice Parameter for specific screening recommendations. The patient will be entered into a reminder system with a target due date of 1 year for her next screening exam. Narrative 09/10/2024 8:17 AM CHAIN CARRIER Screening Mammogram Bilateral W Jocelin: 09/10/24 The [...] Most Recently Relevant to Health Maintenance Insurance [facility] Care Teams Die Finisher Forging Relationship Specialty Start Date End Date Edie Foster NP [address] [facility] [address] [place] [address] PCP - General Nurse Practitioner 06/10/24
--- OUTSIDE RECORDS SUMMARY | 2025-06-27 19:39 | XMS_ITS | Encounter Summary ---
Author Organization [facility] Address [address] [place] [address] Phone Care Team Providers Care Hydroponics Worker Name Role Phone CavazosBoogie neely Primary Care Provider [phone] Marc Mcnair MD Unavailable Rachel Basurto MD Unavailable Encounter Details Date Type Department Care Team (Late st Contact Info) Description 05/27/2021 Telephone [facility] [address] [address] Marc Mcnair MD [address] [facility] [place] [address] [address] Social History Tobacco Use Types [...] Care Team (Late st Contact Info) Description 09/03/2025 1:15 PM ANODE BUILDER Office Visit [facility] [address] [phone] Marc Mcnair MD [address] [facility] [address] [place], [place] [phone] documented as of this encounter Visit Diagnoses Not on filedocumented in this encounter Care Teams Hydroponics Worker Relationship Specialty Start Date End Date Boogie Cavazos PAC [address] [place] [address] [address] [place] [address] PCP - General Family Medicine 05/18/21 aMrc Mcnair MD [address] [place] [address] Consulting Physician Oncology 05/18/21 Rachel Basurto MD [address] [place] [address] [address] [facility] [address] [place] [id number] Endocrinology 10/04/22 documented as of this encounter
--- OUTSIDE RECORDS SUMMARY | 2025-06-27 19:40 | XMS_ITS | Clinical Summary ---
Author Organization [facility] Address [address] [place] [address] Phone Care Team Providers Care Processing Mgr Name Role Phone Boogie Cavazos Primary Care Provider [phone] Marc Mcnair MD Unavailable Rachel Basurto MD Unavailable Allergies Active Allergy Reactions Criticality Noted Date Comments Amoxicillin Hives Medium 11/26/2020 Other reaction(s): Urticaria Diphenhydramine Hives Medium 03/03/2024 Doxycycline Rash Medium 12/02/2020 Other reaction(s): Headache Montelukast Other (see Comments) 11/10/2021 Depression Peanut-Containing Drug Products Hives Medium 02/22/2021 Medications loratadine (CLARITIN) 10 MG Tablet Take 10 mg by mouth. 0 19 Active ferrous sulfate 325 (65 Fe) MG Tablet Take 325 mg by mouth. 19 Active medroxyPROGEST ERone (DEPO-PROVERA) 150 MG/ML Suspension medroxyprogesterone 150 mg/mL intramuscular suspension INJECT 1 MILLILITER INTRAMUSCULARLY EVERY 3 MONTHS Active albuterol 108 (90 Base) MCG/ACT Aerosol Solution albuterol sulfate HFA 90 mcg/actuation aerosol inhaler INHALE 2 (TWO) PUFFS BY MOUTH EVERY 4 HOURS NEEDED FOR SHORTNESS OF BREATH, WHEEZING OR COUGH 08/09/19 22 Active amLODIPine (NORVASC) 5 MG Tablet 06/28/20 22 Active zolpidem (AMBIEN) 5 MG Tablet Take 5 mg by mouth. 06/01/20 22 Active fluticasone-sa lmeterol (ADVAIR) 250-50 MCG/ACT AEROSOL POWDER, BREATH ACTIVATED take 1 Puff by inhalation. 12/06/19 23 Active FLUoxetine (PROZAC) 40 MG Capsule Take 40 mg by mouth daily. 12/07/19 23 Active omeprazole (PriLOSEC) 40 MG CAPSULE DELAYED RELEASE Take 40 mg by mouth daily. 02/21/20 23 Active ascorbic acid (ASCORBIC ACID) 500 MG Tablet Take 500 mg by mouth daily. Active Azelastine HCl 137 MCG/SPRAY Solution spray 1 (one) spray into each nostril 2 times daily 07/10/20 24 Active apixaban (ELIQUIS) 5 MG Tablet Take 5 mg by mouth 2 times daily. 03/05/20 25 Active mometasone (NASONEX) 50 MCG/ACT Suspension 1 [place] by Nasal route. 03/09/20 25 Active methocarbamol (ROBAXIN) 750 MG Tablet Take 750 mg by mouth. 25 Active ondansetron (ZOFRAN-ODT) 4 MG TABLET DISPERSIBLE Take 4 mg by mouth. Active methylPREDNISo lone (MEDROL DOSPACK) 4 MG Tablet Therapy Pack Take 4 mg by mouth daily. 04/18/20 25 Active Active Problems Problem Noted Date Diagnosed Date Acute pulmonary embolism without acute cor pulmo nale 03/06/2025 Iron adverse reaction 09/25/2024 Iron deficiency anemia, [...] HPV DNA test positive;Recorded Elsewhere: No Location: [facility] Source: EHR Chronic: N Practice ID: [id number] Billable Time: 03:15:00 PM Cervical high risk HPV DNA test positive;Recorded Elsewhere: No Location: [facility] Source: EHR Chronic: N Practice ID: [id number] Billable Time: 03:15:00 PM Hypoxemia 02/25/2017 Chronic respiratory failure 10/31/2016 Obesity 09/28/2016 Allergic rhinitis 09/21/2015 Overview (11/17/2021): Overview: ICD-10 update 2015 ICD-10 update 2015 Overview: Overview: ICD-10 update 2015 Hypertrophy of tonsils 09/21/2015 Obstructive sleep apnea syndrome 09/21/2015 Encounters Date Type Department Care Team Description 06/04/2025 3:50 PM DRILL RUNNER HELPER Clinical Support [facility] [address] [address] Nurse, Cc Ofallon B12 deficiency (Primary Dx) 06/04/2025 2:00 PM DRILL RUNNER HELPER Lab [facility] [address] [id number] Lab, Cc Ofandrea Iron deficiency anemia 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 therapy; Other acute pulmonary embolism without acute cor pulmonale 06/04/2025 1:15 PM DRILL RUNNER HELPER Office Visit [facility] [address] [address] Marc Mcnair MD Iron deficiency anemia 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 therapy (Primary Dx); Other acute pulmonary embolism without acute cor pulmonale 06/04/2025 Travel 04/24/2025 Results Follow-Up [facility] [address] [address] Mariya Robles, RN DIABETES EDUCATOR, SAP BASIS CONSULTANT COMP. METABOLIC PANEL [id number] [place], IRON AND TIBC [id number] [place], FERRITIN [id number] [place], Additional followed-up results: 3 04/23/2025 1:15 PM CDT Clinical Support [facility] [address] [address] Nurse, Cc Of[place] B12 deficiency (Primary Dx); Other acute pulmonary embolism without acute cor pulmonale; Iron deficiency anemia, unspecified iron deficiency anemia type 04/23/2025 1:00 PM CDT Office Visit [facility] [address] [address] Mariya Robles, RN DIABETES EDUCATOR, SAP BASIS CONSULTANT Other acute pulmonary embolism without acute cor pulmonale (Primary Dx); Iron deficiency anemia, unspecified iron deficiency anemia type; B12 deficiency 04/23/2025 Travel from Last 3 Months Immunizations Immunization [...] Sign Reading Time Taken Comments Blood Pressure 106/80 06/04/2025 1:02 PM DRILL RUNNER HELPER Pulse 88 06/04/2025 1:02 PM DRILL RUNNER HELPER Temperature 36.8 C (98.2 F) 06/04/2025 1:02 PM DRILL RUNNER HELPER Respiratory Rate 18 06/04/2025 1:02 PM DRILL RUNNER HELPER Oxygen Saturation 95% 06/04/2025 1:02 PM DRILL RUNNER HELPER Inhaled Oxygen Concentration - - Weight 84.6 kg (186 lb 9.6 oz) 06/04/2025 1:02 P M DRILL RUNNER HELPER Height 149.9 cm (4' 11) 06/04/2025 1:02 PM DRILL RUNNER HELPER Body Mass Index 37.69 06/04/2025 1:02 PM DRILL RUNNER HELPER Plan of Treatment Upcoming Encounters Date Type Department Care Team (Late st Contact Info) Description 09/03/2025 1:15 PM DRILL RUNNER HELPER Office Visit [facility] [address] [address] Marc Mcnair MD [address] [place] [address] [place] [address] Health Maintenance Due Date Last Done Comments Hepatitis C Virus (HCV) Screening 1982 Varicella Immunization (1 of 2 - 13+ 2-dose series) 1995 Pap Smear 2003 Human Papillomavirus (HPV) Immunization (1 - 3-dose SCDM series) 2009 Cervical Cancer Screening (CCS) 2012 HPV/Cotest 2012 Pneumococcal Immunization Combined (2 of 2 - PCV) 11/27/2022 11/27/2021 Hepatitis B Immunization (2 of 3 - 19+ 3-dose series) 09/17/2023 08/20/2023 Influenza Immunization (#1) 03/23/202506/22, 06/08/2023, 06/28/2022, Additional history exists SARS-COV-2 Immunization ( season) 2025 09/06/2021, 07/11/2021, 06/11/2021, Additional history exists Mammogram 09/10/2025 09/10/2024, 01/10/2023 [...] Comments CBC WITH AUTO DIFF [place] Routine 04/23/2025 1:18 PM CDT B12 deficiency FOLATE [id number] [place] Routine 04/23/2025 1:18 PM CDT B12 deficiency VITAMIN B12 [id number] [place] Routine 04/23/2025 1:18 PM CDT B12 deficiency FERRITIN [id number] [place] Routine 04/23/2025 1: 18 PM CDT B12 deficiency IRON AND TIBC [id number] [place] Routine 04/23/2025 1:18 PM CDT B12 deficiency COMP. METABOLIC PANEL [id number] [place] Routine 04/23/2025 1:18 PM CDT B12 deficiency from Last 3 Months Results * VITAMIN B12 [id number] [place] (04/23/2025 1:18 PM CDT) VITAMIN B12 613 232 - 1,245 PG/ML [facility] 04/23/2025 1:18 PM CDT Narrative [facility] - 04/24/2025 8:35 AM CDT TESTING PERFORMED AT: [] [facility], [address] [place] [address], [place], [address], PHONE: [phone], BUSINESS SYSTEMS TECHNICIAN: REECE KOEHLER, PHD Mariya Robles APRN, SAP BASIS CONSULTANT LAB SEND OUTS F inal Result [facility] [place] [address], * IRON AND TIBC [id number] [place] (04/23/2025 1:18 PM CDT) Iron Bind.Cap.(TIBC) 297 250 - 450 UG/DL [facility] UIBC 242 131 - 425 UG/DL [facility] Iron, Serum 55 27 - 159 UG/DL [facility] Iron Saturation 19 15 - 55 % [facility] 04/23/2025 1:18 PM CDT [facility] - 04/24/2025 8:35 AM CDT TESTING PERFORMED AT: [] [facility], [address] [place], [address], PHONE: [phone], BUSINESS SYSTEMS TECHNICIAN: REECE KOEHLER, PHD Mariya Robles APRN, SAP BASIS CONSULTANT LAB SEND OUTS F inal Result Performing Organization Address [facility] Co de Phone Number [facility] [place] [address], * FOLATE [id number] [place] (04/23/2025 1:18 PM CDT) Folate (Folic Acid), Serum 5.5 >3.0 NG/ML [facility] Comment: A SERUM FOLATE CONCENTRATION OF LESS THAN 3.1 NG/ML IS CONSIDERED TO REPRESENT CLINICAL DEFICIENCY. 04/23/2025 1:18 PM CDT [facility] - 04/24/2025 10:08 AM CDT TESTING PERFORMED AT: [] [facility], [address] [place] [address], [address], PHONE: [phone], BUSINESS SYSTEMS TECHNICIAN: REECE KOEHLER, PHD Mariya Robles APRN, SAP BASIS CONSULTANT LAB SEND OUTS F inal Result Performing Organization Address [facility] Co de Phone Number [facility] [place] [address], * (ABNORMAL) FERRITIN [id number] [place] (04/23/2025 1:18 PM CDT) Ferritin, Serum 167(H) 15 - 150 NG/ML [facility] 04/23/2025 1:18 PM CDT Narrative [facility] - 04/24/2025 1:08 PM CDT TESTING PERFORMED AT: [] [facility], [address] [place] [address], [place], [address], PHONE: [phone], BUSINESS SYSTEMS TECHNICIAN: REECE KOEHLER, PHD Mariya Robles APRN, SAP BASIS CONSULTANT LAB SEND OUTS F inal Result [facility] [place] [address], * (ABNORMAL) COMP. METABOLIC PANEL [id number] [place] (04/23/2025 1:18 PM CDT) GLUCOSE, SERUM 80 70 - 99 MG/DL [facility] BUN 9 6 - 24 MG/DL [facility] CREATININE, SERUM 0.73 0.57 - 1.00 MG/DL [facility] EGFR 105 >59 ML/MIN/1.7 3 [facility] BUN/CREATININE RATIO 12 9 - 23 [facility] SODIUM, SERUM 141 134 - 144 MMOL/L [facility] POTASSIUM, SERUM 3.4(L) 3.5 - 5.2 MMOL/L [facility] CHLORIDE, SERUM 105 96 - 106 MMOL/L [facility] CARBON DIOXIDE, TOTAL 22 20 - 29 MMOL/L [facility] CALCIUM, SERUM 9.0 8.7 - 10.2 MG/DL [facility] PROTEIN, TOTAL, SERUM 6.8 6.0 - 8.5 G/DL [facility] ALBUMIN, SERUM 4.3 3.9 - 4.9 G/DL [facility] GLOBULIN, TOTAL 2.5 1.5 - 4.5 G/DL [facility] BILIRUBIN, TOTAL 0.3 0.0 - 1.2 MG/DL [facility] ALKALINE PHOSPHATASE, S 61 41 - 116 IU/L [facility] AST (SGOT) 9 0 - 40 IU/L [facility] ALT (SGPT) 12 0 - 32 IU/L [facility] 04/23/2025 1:18 PM CDT Narrative [facility] - 04/24/2025 7:08 AM CDT TESTING PERFORMED AT: [] [facility], [address] [place] [address], [address], PHONE: [phone], BUSINESS SYSTEMS TECHNICIAN: REECE KOEHLER, PHD us Mariya Robles APRN, SAP BASIS CONSULTANT LAB SEND OUTS F inal Result [facility] [place] [address], * (ABNORMAL) CBC WITH AUTO DIFF [place] (04/23/2025 1:18 PM CDT) WBC 9.6 4.0 - 10.0 10*3/uL [facility] HGB 10.7(L) 11.2 - 15.7 g/dL [facility] HCT 33.2(L) 34.1 - 44.9 % [facility] PLT 476(H) 163 - 369 10*3/uL [facility] MPV 8.2(L) 9.4 - 12.4 fL [facility] RBC 3.77(L) 3.93 - 5.22 10*6/uL [facility] MCV 88 79 - 95 fL [facility] MCH 28.4 25.6 - 32.2 pg [facility] MCHC 32.2 32.2 - 36.5 g/dL [facility] RDW 15.2(H) 11.6 - 14.4 % [facility] Neutrophils % 64.7 36.0 - 66.0 % [facility] Lymphocytes % 27.9 19.0 - 40.0 % [facility] Monocytes % 6.0 4.1 - 12.1 % [facility] Eosinophils % 0.6 0.0 - 3.5 % [facility] Basophils % 0.2 0.0 - 1.0 % [facility] Absolute Neutrophils 6.2 1.4 - 6.6 10*3/uL [facility] Absolute Lymphocytes 2.7 0.8 - 4.0 10*3/uL [facility] Absolute Monocytes 0.6 0.2 - 1.2 10*3/uL [facility] Absolute Eosinophils 0.1 0.0 - 0.4 10*3/uL [facility] Absolute Basophils 0.0 0.0 - 0.1 10*3/uL [facility] 04/23/2025 1:18 PM CDT us Mariya Robles RN DIABETES EDUCATOR, SAP BASIS CONSULTANT LAB SEND OUTS F inal Result [facility] [address] [place] [address], from Last 3 Months Insurance MEDICAID [employer] Care Teams Processing Mgr Relationship Specialty Start Date End Date Boogie Cavazos PAC [address] [place] [address] PCP - General Family Medicine 05/18/21 Marc Mcanir MD [address] [place] [address] Consulting Physician Oncology 05/18/21 Rachel Basurto MD [address] [facility] [address] [place] [address] Endocrinology 10/04/22
--- OUTSIDE RECORDS SUMMARY | 2025-06-27 19:40 | XMS_ITS | Encounter Summary ---
Author Organization [facility] Address [address] [place] [address] Phone Care Team Providers Care Loader Machine Name Role Phone Boogie Cavazos Primary Care Provider Marc Mcnair MD Unavailable [phone] Rachel Basurto MD Unavailable Encounter Details Date Type Department Care Team (Late st Contact Info) Description 07/28/2021 Telephone [facility] [address] [place] [address] Marc Mcnair MD [address] [address] Social History Tobacco Use Types [...] COVID-19? No / Unsure 06/30/2021 12:54 PM PUBLICITY CONSULTANT documented as of this encounter Miscellaneous Notes * Telephone Encounter - Melissa Ibarra - 07/28/2021 2:00 PM CST PT HAD AN OFFICE VISIT SCHEDULED TODAY, NO SHOW, CALLED PT, LETTER SENT ICITY CONSULTANT documented in this encounter Plan of Treatment Upcoming Encounters Date Type Department Care Team (Late st Contact Info) Description 09/03/2025 1:15 PM PUBLICITY CONSULTANT Office Visit [facility] [address] [place] [phone] Marc Mcnair MD [facility] [facility] [address] [place] [address] documented as of this encounter Visit Diagnoses Not on filedocumented in this encounter Additional Health Concerns Assessment Noted Time PHQ-9 Depression Total Score: 0 06/02/20 21 2:12 PM PUBLICITY CONSULTANT documented as of this encounter Care Teams Loader Machine Relationship Specialty Start Date End Date Boogie Cavazos PAC [address] [place] [address] [address] [place] [address] PCP - General Family Medicine 05/18/21 Marc Mcnair MD [address] [place] [phone] Consulting Physician Oncology 05/18/21 Rachel Basurto MD [address] [place] [address] [address] [facility] [address] [place] [address] Endocrinology 10/04/22 documented as of this encounter
--- OUTSIDE RECORDS SUMMARY | 2025-06-27 19:40 | XMS_ITS | Clinical Summary ---
Author Organization [facility] Address [address] [place] [address] Care Team Providers Care Emergency Medical Tech Name Role Phone Boogie Cavazos Primary Care Provider [phone] Allergies Active Allergy Reactions Criticality Noted Date Comments Amoxicillin Hives Low 11/26/2020 Doxycycline Rash Low 12/02/2020 Medications albuterol sulfate HFA (PROAIR HFA) 108 (90 Base) MCG/ACT inhaler Inhale 1-2 puffs into the lungs. 7 Active loratadine 10 MG tablet Take 10 mg by mouth. 9 Active ferrous sulfate, 65 mg elemental, 325 (65 FE) MG tablet Take 1 tablet by mouth daily. 2 9 Active WIXELA INHUB 250-50 MCG/DOSE inhalerIndicati ons:Reactive airway disease without complication, unspecified asthma severity, unspecified whether persistent ([facility]) INHALE 1 PUFF BY MOUTH TWICE A DAY 60 each 2 0 Active fluticasone propionate (FLONASE) 50 MCG/ACT nasal spray 1 spray by Each Nostril route daily. 16 g 1 Active vitamin D2, ergocalciferol, 62962 UNITS capsule Take 50,000 Units by mouth every 7 days. Active azithromycin (ZITHROMAX) 250 MG tablet Take 2 tablets by mouth on day one then 1 daily for four days. 6 tablet 2 Active methocarbamol (ROBAXIN-750) 750 MG Tab Take 1 tablet (750 mg total) by mouth every 8 (eight) hours as needed. 30 tablet 3 Active lidocaine (LIDO GRABIEL) 4 % patch Place 1 patch onto the skin daily. Remove & Discard patch within 12 hours or as directed 30 patch 3 Active HYDROcodone-trinh taminophen (NORCO) 5-325 MG tabletIndicatio ns:Acute Pain < 3 Day Supply Take 1 tablet by mouth every 6 (six) hours as needed. Indications: Acute Pain < 3 Day Supply Do not exceed 4g of acetaminophen in a day. 10 tablet 5 Active Active Problems Problem Noted Date Diagnosed Date Excessive daytime sleepiness 01/27/2020 Reactive airway disease with out complication, unspecified asthma severity, unspecified whether persistent 07/12/2018 Gastroesophageal reflux dise ase, esophagitis presence not specified 07/12/2018 Environmental and seasonal allergies 07/12/2018 Abnormal PFT 07/12/2018 Traumatic pneumothorax, sequela 07/12/2018 Snoring 08/27/2017 RENEE (dyspnea on exertion) 04/03/2017 Hypoxemia 02/25/2017 Lung disease, restrictive 10/31/2016 History of fracture of rib 09/28/2016 Obesity 09/28/2016 Allergic rhinitis 09/21/2015 Overview (07/05/2018): Overview: Overview: ICD-10 update 2015 Hypertrophy of tonsils 09/21/2015 Obstructive sleep apnea 09/21/2015 Resolved Problems Problem Noted Date Diagnosed Date Resolved Date Respiratory failure, chronic 04/03/2017 01/27/2020 Chronic respiratory failure 10/31/2016 01/27/2020 Encounter for preventive health examination 09/26/2016 04/02/2020 Encounters Date Type Department Care Team Description 06/23/2025 11:26 AM COMPUTER TRAINER - 06/23/2025 2:08 PM [facility] Emergency [facility] [place] [address] Basia Cao PA Fall Discharge Disposition: Home or Self Care (Routine Discharge) 06/23/2025 Travel from Last 3 Months Family History Medical History Relation Comments No Known Problems Father No Known Problems Mother Relation Status Comments Father Mother Social History Tobacco Use Types Packs/Day Years Used Date Smoking Tobacco: Never Smokeless Tobacco: Never Alcohol Use Standard Drinks/Week Comments No 0 (1 standard drink = 0.6 oz pur e alcohol) AUDIT-C Answer Date Recorded Frequency of Alcohol Consumption Never 07/12/2018 Average Number of Drinks Not on file 018 Frequency of Binge Drinking Not on file 06/23 Comments No Sex and Gender Information Value Date Recorded Sex Assigned at Female 06/23/2025 11:34 AM COMPUTER TRAINER Legal Sex Female 8:12 PM CDT Gender Identity Not on file Sexual Orientation Not on file Last Filed Vital Signs Vital Sign Reading Time Taken Comments Blood Pressure 115/82 06/23/2025 2:00 PM COMPUTER TRAINER Pulse 95 06/23/2025 2:00 PM COMPUTER TRAINER Temperature 36.4 C (97.5 F) 06/23/2025 11:26 AM COMPUTER TRAINER Respiratory Rate 16 06/23/2025 2:00 PM COMPUTER TRAINER Oxygen Saturation 100% 06/23/2025 2:00 PM COMPUTER TRAINER Inhaled Oxygen Concentration - - Weight 81.6 kg (180 lb) 06/23/2025 11:26 AM COMPUTER TRAINER Height 149.9 cm (4' 11) 06/23/2025 11:26 AM COMPUTER TRAINER Body Mass Index 36.36 06/23/2025 11:26 AM COMPUTER TRAINER Plan of Treatment Health Maintenance Due Date Last Done Comments Cervical Cancer Screening Pap Smear (Age 30 to 64) Every 3 Years 1982 Annual Physical 1985 Hepatitis C 2000 HPV Vaccines (1 - 3-dose SCDM series) 2009 Cervical Cancer Screening Pap with HPV Testing (Age 30 to 64) Every 5 Years 2012 Cervical Cancer Screening with HPV 2012 Hepatitis B Vaccines (2 of 3 - 19+ 3-dose series) 09/17/2023 08/20/2023 COVID-19 Vaccine ( season) 2025 09/06/2021, 07/11/2021, 06/11/2021, Additional history exists Influenza Adult (#1) 2025 06/08/2023, 06/28/2022, 07/27/2021, Additional history exists Mammogram Screening 09/10/2026 09/10/2024, 03/05/2023, 01/10/2023 DTaP, Tdap and Td Vaccines (2 - Td or Tdap) 08/01/2029 08/01/2019 Pneumococcal Vaccine: Pediatrics (0 to 5 Years) and At-Risk Patients (6 to 49 Years) Aged Out 11/27/2021 No longer eligible based on patient's age to complete this topic Hepatitis A Vaccines Aged Out No long er eligible based on patient's age to complete this topic Meningococcal B Vaccine Aged Out No l onger eligible based on patient's age to complete this topic Meningococcal Vaccine Aged Out No irene lissett eligible based on patient's age to complete this topic RSV Immunizations Under 20 Months Aged Out No longer eligible based on patient's age to complete this topic Procedures Procedure Name Priority Date/Time Associated Diagnosis Comments XR FOOT LT 3V STAT 06/23/2025 12:02 PM COMPUTER TRAINER XR ANKLE LT M3V STAT 06/23/2025 12:02 PM COMPUTER TRAINER from Last 3 Months Results * XR FOOT LT 3V (06/23/2025 12:02 PM COMPUTER TRAINER) Anatomical Region Laterality Modality Foot Radiographic Francie ging 06/23/2025 12:0 3 PM COMPUTER TRAINER Impressions 06/23/2025 12:06 PM COMPUTER TRAINER IMPRESSION: Acute fracture of the distal fibula. Ordered By: BASIA CAO Interpreted By: Kurt Bruce MD, 06/23/2025 12:03 PM Narrative 06/23/2025 12:06 PM COMPUTER TRAINER [address] [address] XR ANKLE LT M3V, XR FOOT LT 3V INDICATION: Fall on ice, left ankle pain. TECHNIQUE: AP lateral and oblique views of the left ankle left foot. COMPARISON: Left foot radiograph 09/16/2018. FINDINGS: There is an obliquely oriented fracture identified of the distal fibula/lateral malleolus. This is minimally displaced, approximately 1 mm of posterior displacement. Probable intra-articular extension, but no significant widening of the tibiofibular syndesmosis or tibiotalar joint. The distal tibia appears intact. There is moderate associated soft tissue swelling overlying the lateral malleolus. No other convincing fracture is identified. Joint spaces are preserved. No aggressive osseous lesion. Small ankle joint effusion. Procedure Note Kurt Bruce MD - 06/23/2025 [facility] [address] [place], [place] [address] XR ANKLE LT M3V, XR FOOT LT 3V INDICATION: Fall on ice, left ankle pain. TECHNIQUE: AP lateral and oblique views of the left ankle left foot. COMPARISON: Left foot radiograph 09/16/2018. FINDINGS: There is an obliquely oriented fracture identified of the distalfibula/lateral malleolus. This is minimally displaced, approximately 1 mmof posterior displacement. Probable intra-articular extension, but nosignificant widening of the tibiofibular syndesmosis or tibiotalar joint.The distal tibia appears intact. There is moderate associated soft tissueswelling overlying the lateral malleolus. No other convincing fracture isidentified. Joint spaces are preserved. No aggressive osseous lesion.Small ankle joint effusion. IMPRESSION: Acute fracture of the distal fibula. Ordered By: BASIA CAO Interpreted By: Kurt Bruce MD, 06/23/2025 12:03 PM us Basia Cao PA GENERAL IMAGING Final Result * XR ANKLE LT M3V (06/23/2025 12:02 PM COMPUTER TRAINER) Anatomical Region Laterality Modality Ankle Radiographic Francie ging 06/23/2025 12:0 3 PM COMPUTER TRAINER Impressions 06/23/2025 12:06 PM COMPUTER TRAINER IMPRESSION: Acute fracture of the distal fibula. Ordered By: BASIA CAO Interpreted By: Kurt Bruce MD, 06/23/2025 12:03 PM Narrative 06/23/2025 12:06 PM COMPUTER TRAINER [facility] [address] XR ANKLE LT M3V, XR FOOT LT 3V INDICATION: Fall on ice, left ankle pain. TECHNIQUE: AP lateral and oblique views of the left ankle left foot. COMPARISON: Left foot radiograph 09/16/2018. FINDINGS: There is an obliquely oriented fracture identified of the distal fibula/lateral malleolus. This is minimally displaced, approximately 1 mm of posterior displacement. Probable intra-articular extension, but no significant widening of the tibiofibular syndesmosis or tibiotalar joint. The distal tibia appears intact. There is moderate associated soft tissue swelling overlying the lateral malleolus. No other convincing fracture is identified. Joint spaces are preserved. No aggressive osseous lesion. Small ankle joint effusion. Procedure Note Kurt Bruce MD - 06/23/[address] [address] XR ANKLE LT M3V, XR FOOT LT 3V INDICATION: Fall on ice, left ankle pain. TECHNIQUE: AP lateral and oblique views of the left ankle left foot. COMPARISON: Left foot radiograph 09/16/2018. FINDINGS: There is an obliquely oriented fracture identified of the distalfibula/lateral malleolus. This is minimally displaced, approximately 1 mmof posterior displacement. Probable intra-articular extension, but nosignificant widening of the tibiofibular syndesmosis or tibiotalar joint.The distal tibia appears intact. There is moderate associated soft tissueswelling overlying the lateral malleolus. No other convincing fracture isidentified. Joint spaces are preserved. No aggressive osseous lesion.Small ankle joint effusion. IMPRESSION: Acute fracture of the distal fibula. Ordered By: BASIA CAO Interpreted By: Kurt Bruce MD, 06/23/2025 12:03 PM Basia RUIZ GENERAL IMAGING Final Result from Last 3 Months Insurance Medicaid I-Pending on file Care Teams Emergency Medical Tech Relationship Specialty Start Date End Date Boogie Cavazos PA PCP - General PHYSICIAN ANODIZER 10/09/17
--- OUTSIDE RECORDS SUMMARY | 2025-06-27 19:40 | XMS_ITS | Clinical Summary ---
Author Organization [facility] [employer] Address [address] [place] [address] Care Team Providers Care Spray Machine Operator Name Role Phone Edie Foster MATT-LIVE TRUCK TECHNICIAN Primary Care Provider Source Comments [facility],non-owned Affiliates and Associated Physician Practices is amultiple site organization consisting of ambulatory clinics and hospital sitesin [place], [place], [place] and [place]. This disclosure is being madepursuant to the Care Everywhere program and may not contain all information available regarding this patient. Last updated 18.[facility] [employer] Allergies Active Allergy Reactions Criticality Noted Date Comments Amoxicillin Urticaria Medium 11/26/2020 Diphenhydramine Urticaria Medium 03/03/2024 Doxycycline Headache,Rash Medium 12/02/2020 Montelukast Other 11/10/2021 [...] sprayIndications: Allergic rhinitis, unspecified seasonality, unspecified trigger Hartley 2 (two) sprays into each nostril once [...] 4,000 mL by mouth once 5 Active ascorbic acid (VITAMIN C) 500 MG tabletIndications :Iron deficiency TAKE 1 TABLET BY MOUTH ONCE DAILY AT SAME TIME FERROUS SULFATE (IRON) TABLET 90 tablet 3 5 Active Azelastine HCl 137 MCG/SPRAY SOLN SPRAY 1 (ONE) SPRAY INTO EACH NOSTRIL 2 TIMES DAILY 30 mL 11 5 Active apixaban (Eliquis) 5 MG tablet Take 1 (one) tablet by mouth 2 times daily 5 Active mometasone (Nasonex) 50 MCG/ACT nasal sprayIndications: Allergic rhinitis, unspecified seasonality, unspecified trigger Hartley 1 (one) spray into each nostril 2 times daily 51 g 4 5 Active zolpidem (Ambien) 5 MG tabletIndications :Chronic insomnia Take 1 (one) tablet by mouth at bedtime 90 tablet 1 5 Active Active Problems Problem Noted Date [...] ADULT 3 DOSE 08/20/2023 INFLUENZA VACCINE 07/27/2021,08/30/2020,08/12/19 19 INFLUENZA VACCINE, QUADR. (F LUZONE; FLULAVAL; FLUARIX; [...] on file Legal Sex Female 11:06 AM CONTESTANT COORDINATOR Gender Identity Not on file Sexual Orientation Not on file Occupation Industry Job Start Date Job End Date [employer] Not on file Not on file Not on file Last Filed Vital Signs Vital Sign Reading Time Taken Comments Blood Pressure 105/80 03/09/2025 12:42 PM CDT Pulse 101 03/09/2025 12:42 PM CDT Temperature 36.7 C (98 F) 03/05/2025 9:46 AM CDT Respiratory Rate 17 03/05/2025 9:46 AM CDT Oxygen Saturation 98% 03/05/2025 9:46 AM CDT Inhaled Oxygen Concentration - - Weight 81.5 kg (179 lb 12 oz) 03/09/2025 12:42 P M CDT Height 149.9 cm (4' 11) 03/09/2025 12:42 PM CDT Body Mass Index 36.31 03/09/2025 12:42 PM CDT Plan of Treatment Upcoming Encounters Date Type Department Care Team (Late st Contact Info) Description 07/14/2025 10:30 AM CONTESTANT COORDINATOR Office Visit [facility] - Pulmonology [address] [facility] [place] [address] Darrin Mahoney MD [facility] DIV OF PULMONARY/[place] [address] 09/09/2025 11:40 AM CONTESTANT COORDINATOR [facility] [address] [facility] [address] [place] [address] Dwight Somers MD [address] [facility] [address] [place] [address] Health Maintenance Due Date Last Done Comments LIPID TESTING 1982 HIV SCREENING 1997 HEPATITIS C SCREENING 04/24/2000 PAP SMEAR 2003 HPV VACCINE (1 - 3-dose SCDM series) 2009 SCREENING FOR DIABETES 05/25/2022 08/28/2014 HEPATITIS B VACCINE (2 of 3 - 19+ 3-dose series) 09/17/2023 08/20/2023 DEPRESSION SCREENING 07/23/2024 04/19/2022 COVID-19 VACCINE ( season) 2025 09/06/2021, 07/11/2021, 06/11/2021, Additional history exists INFLUENZA VACCINE (#1) 2025 3, 06/28/2022, 07/27/2021, Additional history exists MAMMOGRAM 09/10/2026 09/10/2024, 08/23, [...] COMPREHENSIVE METABOLIC PANEL Routine 08/28/2014 4:20 PM CONTESTANT COORDINATOR Shortness of breath from Last 3 Months or Most Recently Relevant to Health Maintenance Results * COMPREHENSIVE METABOLIC PANEL (08/28/2014 4:20 PM CONTESTANT COORDINATOR) [facility] Glucose 86 74 - 106 mg/dL 08/28/2014 4:52 PM CONTESTANT COORDINATOR [facility] Sodium 140 136 - 145 mmol/L 08/28/2014 4:52 PM CONTESTANT COORDINATOR [facility] Potassium 3.6 3.5 - 5.1 mmol/L 08/28/2014 4:52 PM CONTESTANT COORDINATOR [facility] Chloride 106 98 - 107 mmol/L 08/28/2014 4:52 PM CONTESTANT COORDINATOR [facility] CO2 27 22 - 31 mmol/L 08/28/2014 4:52 PM CONTESTANT COORDINATOR [facility] Calcium 9.3 8.5 - 10.1 mg/dL 08/28/2014 4:52 PM CONTESTANT COORDINATOR [facility] Anion Gap 7 5 - 15 mmol/L 08/28/2014 4:52 PM CONTESTANT COORDINATOR [facility] BUN 12 7 - 21 mg/dL 08/28/2014 4:52 PM CONTESTANT COORDINATOR [facility] Creatinine 0.57 0.50 - 1.30 mg/dL 08/28/2014 4:52 PM CONTESTANT COORDINATOR [facility] eGFR by MDRD >60 >60 mL/min/1.7 3m2 08/28/2014 4:52 PM CONTESTANT COORDINATOR [facility] eGFR by MDRD >60 >60 mL/min/1.7 2 08/28/2014 4:52 PM CONTESTANT COORDINATOR [facility] Alkaline Phosphatase 60 38 - 126 U/L 08/28/2014 4:52 PM CONTESTANT COORDINATOR [facility] ALT 19 12 - 78 U/L 08/28/2014 4:52 PM CONTESTANT COORDINATOR [facility] AST 9 5 - 40 U/L 08/28/2014 4:52 PM [facility] Protein Total 8.0 6.4 - 8.2 gm/dL 08/28/2014 4:52 PM [facility] Albumin 3.8 3.4 - 5.0 gm/dL 08/28/2014 4:52 PM [facility] Bilirubin Total 0.5 0.2 - 1.0 mg/dL 08/28/2014 4:52 PM [facility] Blood BLOOD SPECIMEN / Unknown Lab Venipuncture / Unknown 08/28/2014 4:20 PM CONTESTANT COORDINATOR 08/28/2014 4:20 PM CONTESTANT COORDINATOR us Stefan Todd MD LAB - CHEMISTRY ORDERABL ES Final Result Performing Organization Address [facility]/State/[facility] Co de Phone Number [facility] [address] [place] [address] from Last 3 Months or Most Recently Relevant to Health Maintenance Insurance [facility] [id number] * Guarantor: ZAKI JOYA RED BUD Account Type Relation to Patient Date of Phone Billing Address [employer] [address] [place] [address] Care Teams Spray Machine Operator Relationship Specialty Start Date End Date Edie Foster APRN-LIVE TRUCK TECHNICIAN [address] [facility] [address] [place], [place] [id number] PCP - General Nurse Practitioner Family 03/02/25
--- OUTSIDE RECORDS SUMMARY | 2025-06-27 19:40 | XMS_ITS | Data Portability ---
Author Organization [facility] [place] Address [address] [place] [address] [place] [address] Care Team Providers Care Geographic Analyst Name Role Phone DAVID MEDRANO Primary Care Provider [phone] Assessment Encounter Date Assessment Date Assessment LastModified by Organization Details LastModified Time 06/29/2021 06/29/2021 plan labs and US, discussed possible need for EMB and then possible treatment options including depo, ocp, iud, ablation and hysterectomy, will have follow up after us to discuss [email or web address] Not available 06/29/2021 14:39:44 Plan of Treatment Reminders Order Date Submit Date Provider Last Modified By Organization Details Last Modified Time Details Appointments None recorded. Lab test, urine 2021 022 [email or web address] [address], [address], [place], [address], 10:45:57 Referral None recorded. Procedures None recorded. Surgeries None recorded. Imaging US, pelvis 2020 021 [email or web address] [address], [address], [place], [address], 20:51:52 US, transvagina l 2020 021 [email or web address] [address], [address], [place], [address], 20:51:52 US, pelvis, complete 2020 021 [email or web address] [place] , [address], [place], [address], 19:52:27 Medication Orders Depo-Senior Director Finance a 150 mg/mL intramuscul ar suspension 2021 022 [email or web address] [id number], [address] [place], [address], 2 10:45:57 Depo-Senior Director Finance a 150 mg/mL intramuscul ar syringe 2021 022 [email or web address] [id number], [address] [place], [address], 10:30:20 Patient TargetsNo targets recorded. Patient InstructionsNo instructions recorded. Reason for Referral None Reported. Results Created Date Observation Date Name Description Value Unit Range Abnormal Flag Note LastModifiedBy Organization Detail LastModifiedTime 06/29/20 21 06/29/2021 TSH, REFLE X FREE T4 TSH 0.73 uIU/m L 0.30-[address] [facility] (Lab) [address], [place], [address], 07/04/2021 10:34:35 06/29/20 21 06/29/2021 HUMAN SEX HORMO NE SYLVIA NG GLOBU GILDA sex hormone binding globulin 53.9 nmole s/L 18.2-[address] [facility] (Lab) [address], [place], [address], 07/04/2021 10:34:35 06/29/20 21 06/29/2021 DHEA SULFA TE DHEA-sulfate 46 ug/dL Femal e Range s Age(y ) Range (ug/d L) 10-15 34-28 0 15-20 65-36 8 20-25 148-4 07 25-35 99-34 0 35-45 61-33 7 45-55 35-25 6 55-65 19-20 5 65-75 9-246 > 75 12-[address] [facility] (Lab) [address] [place], [address], 07/04/2021 10:34:35 06/29/20 21 06/29/2021 ESTRA DIOL estradiol 159.0 pg/mL This assay was perfo rmed using [employer] ratio n reage nts and test kits. Value s obtai iglesia with other assay metho ds or kits canno t be used inter [facility] . Femal e Estra diol Range s: Folli cular phase 12.4- 233 pg/mL Ovula tion phase 41.0- 398 pg/mL Lutea l phase 22.3- 341 pg/mL Postm enopa usal< 5-138 pg/mL Healt hy Pregn ant Women 1st Trime ster1 54-32 43 pg/mL 2nd Trime ster1 561-2 1280 pg/mL 3rd Trime ster8 525-> 11722 pg/mL Not Available [facility] (Lab) [address] [place], [address], 07/04/2021 10:34:36 06/29/20 21 06/29/2021 PROGE STERO NE progesterone 9.64 NG/mL This assay was perfo rmed using [employer] reage nts and test kits. Value s obtai iglesia with other assay metho ds or kits canno t be used inter [facility] . Femal e Proge stero ne Range s: Folli cular phase 0.06- 0.89 ng/mL Ovula tion phase 0.12- 12.00 ng/mL Lutea l phase 1.83- 23.90 ng/mL Postm enopa usal< 0.05- 0.13 ng/mL Healt hy Pregn ant Women 1st Trime ster1 1.0-4 4.30 2nd Trime ster2 5.40- 83.30 3rd Trime ster5 8.70- 214.[address] [facility] (Lab) [address] [place], [address], 07/04/2021 10:34:36 06/29/20 21 06/29/2021 PROLA CTIN prolactin, total 13.30 NG/mL 4.79-2 3.30 This assay was perfo rmed using [employer] ratio n reage nts and test kits. Value s obtai iglesia with other assay metho ds or kits canno t be used inter [facility] . Not Available [facility] (Lab) [address], [place], [address], 07/04/2021 10:34:37 06/29/20 21 06/29/2021 LH (LUTE NIZIN G HORMO NE) LH 3.9 mIU/m L This assay was perfo rmed using [employer] n reage nts and test kits. Value s obtai iglesia with other assay metho ds or kits canno t be used inter [facility] . Femal es Mid-F ollic ular: 2.4-1 2.6 mIU/m L Mid-C ycle: 14.0- 95.6 mIU/m L Mid-L uteal : 1.0-1 1.4 mIU/m L Postm enopa use: 7.7-5 8.5 mIU/m L Not Available [facility] (Lab) [address], [place], [address], 07/04/2021 10:34:37 06/29/20 21 06/29/2021 FSH FSH 2.9 mIU/m L This assay was perfo rmed using [employer] ratio n reage nts and test kits. Value s obtai iglesia with other assay metho ds or kits canno t be used inter [facility] . Femal es Folli cular : 3.5-1 2.5 mIU/m L Ovula tion: 4.7-2 1.5 mIU/m L Lutea l: 1.7-7 .7 mIU/m L Postm enopa use: 25.8- 134.8 mIU/m L Not Available [facility] (Lab) [address] [place], [address], 07/04/2021 10:34:38 06/29/20 21 06/29/2021 HEMOG LOBIN A1C hemoglobin A1C 5.2 % 0-5.6 The Ameri can [employer] casey [employer] iatio n recom mends that a prima ry goal of thera py shoul d be a HBA1C of < 7% and that physi cians shoul d reeva luate the treat ment regim en in patie nts with HBA1C value s consi stent ly > 8%. <5.7% Neva l 5.7 - 6.4% Incre ased risk for diabe casey >=6.5 % Diagn ostic of diabe casey <7.0% Goal of thera py >8.0% Actio n sugge sted Not Available [facility] (Lab) [address], [place], [address], 07/04/2021 10:34:38 06/29/20 21 06/29/2021 17-OH PROGE STERO NE 17-hydroxypr ogesterone, lc/MS/MS 231 NG/dL Adult Femal e Refer ence Range s for 17-Hy droxy proge stero ne: Pre-M enopa usal Mid Folli cular : 23-10 2 ng/dL Pre-M enopa usal Surge : 67-34 9 ng/dL Pre-M enopa usal Mid Lutea l: 139-4 31 ng/dL Postm enopa usal Phase : < or = 45 ng/dL Pregn cris: First Trime ster: 78-45 7 ng/dL Secon d Trime ster: 90-35 7 ng/dL Third Trime ster: 144-5 78 ng/dL This test was devel oped and its emery tical perfo rmanc e giovanni cteri stics have been deter mined by [facility] [place] . It has not been clear ed or appro uzma by FDA. This assay has been valid ated pursu ant to the CLIA regul ation s and is used for clini bonnie purpo ses. Perfo rming Organ izati on Infor mateverette n: Site ID: [id number] Name: [facility]/Crist[facility]bal arroyo [facility] , Addre ss: [id number] [place] [address] [facility] tor: Sonia paige MD,Ph D,RAJESH Not Available [facility] (Lab) [address], [place], [address], 07/04/2021 10:34:38 06/29/20 21 06/29/2021 TESTO STERO NE, FREE( DIALY SIS) AND TOTAL (LC/M S/MS) testosterone , total 24 NG/dL 2-45 For addit ional infor phan guevara e refer to http: //[facility] aguilar.que stdia gnost ics.c om/fa q/Tot alTdamian jimenez Dah[facility] (This link is being provi ded for infor matio nal/ educa sally l purpo ses only. ) This test was devel oped and its emery tical perfo rmanc e giovanni cteri stics have been deter mined by [employer]stic [employer]. It has not been clear ed or appro uzma by the FDA. This assay has been valid ated pursu ant to the CLIA regul ation s and is used for clini bonnie purpo ses. Not Available [facility] (Lab) [address], [place], [address], 07/04/2021 10:34:39 06/29/20 21 06/29/2021 TESTO STERO NE, FREE( DIALY SIS) AND TOTAL (LC/M S/MS) testosterone , free 2.1 pg/mL 0.1-6. 4 This test was devel oped and its emery tical perfo rmanc e giovanni cteri stics have been deter mined by [employer]stic [employer]. It has not been clear ed or appro uzma by the FDA. This assay has been valid ated pursu ant to the CLIA regul ation s and is used for clini bonnie purpo ses. Perfo rming Organ izati on Infor mateverette n: Site ID: [id number] Name: [employer] [facility]stic [facility]-Cristóbal Stiles cia Addre ss: [id number] [place] [address] Direc tor: Amadou simmons M.D. Not Available [facility] (Lab) [address], [place], [address], 07/04/2021 10:34:39 06/29/20 21 06/29/2021 urina lysis , dipst ick Leukocytes normal Not Available [facility] [address], [place], [address], 06/29/2021 14:17:41 06/29/20 21 06/29/2021 urina lysis , dipst ick Nitrite normal Not Available [address], [place], [address], 06/29/2021 14:17:41 06/29/20 21 06/29/2021 urina lysis , dipst ick Urobilinogen normal Not Available [facility] [address], [place], [address], 06/29/2021 14:17:41 06/29/20 21 06/29/2021 urina lysis , dipst ick Protein normal Not Available [place] [address], [place], [address], 06/29/2021 14:17:41 06/29/20 21 06/29/2021 urina lysis , dipst ick pH normal Not Available [address], [place], [address], 06/29/2021 14:17:41 06/29/20 21 06/29/2021 urina lysis , dipst ick Specific Nelson normal Not Available [facility] [address], [place], [address], 06/29/2021 14:17:41 06/29/20 21 06/29/2021 urina lysis , dipst ick Ketone normal Not Available [place] [address], [place], [address], 06/29/2021 14:17:41 06/29/20 21 06/29/2021 urina lysis , dipst ick Bilirubin normal Not Available [facility] [address], [place], [address], 06/29/2021 14:17:41 06/29/20 21 06/29/2021 urina lysis , dipst ick Glucose normal Not Available [place] [address], [place], [address], 06/29/2021 14:17:41 06/29/20 21 06/29/2021 urina lysis , dipst ick Appearance normal [facility] [address], [place], [address], 06/29/2021 14:17:41 06/29/20 21 06/29/2021 urina lysis , dipst ick Color normal Not Available [place] [address], [place], [address], 06/29/2021 14:17:41 08/05/19 22 08/05/2021 pregn cris test, urine HCG negati ve Not Available [place] [address], [place], [address], 08/05/2021 10:43:40 10/20/19 22 10/19/2021 CBC W/DIF F WBC 7.6 10'3/ uL 3.6-[address] [facility] (Lab) [address], [place], [address], 10/20/2021 02:53:19 10/20/19 22 10/19/2021 CBC W/DIF F RBC 4.30 10'6/ uL (based on docume nted legal sex) 4.10-[address] [facility] (Lab) [address], [place], [address], 10/20/2021 02:53:19 10/20/19 22 10/19/2021 CBC W/DIF F HGB 12.2 g/dL (based on docume nted legal sex) 11.9-[address] [facility] (Lab) [address], [place], [address], 10/20/2021 02:53:19 10/20/19 22 10/19/2021 CBC W/DIF F HCT 37.4 % (based on docume nted legal sex) 37.4-[address] [facility] (Lab) [address], [place], [address], 10/20/2021 02:53:19 10/20/19 22 10/19/2021 CBC W/DIF F MCV 88.0 fL 82.0-[address] [facility] (Lab) [address], [place], [address], 10/20/2021 02:53:19 10/20/19 22 10/19/2021 CBC W/DIF F MCH 29.0 pg 27.0-[address] [facility] (Lab) [address], [place], [address], 10/20/2021 02:53:19 10/20/19 22 10/19/2021 CBC W/DIF F MCHC 33.0 g/dL 32.0-[address] [facility] (Lab) [address], [place], [address], 10/20/2021 02:53:19 10/20/19 22 10/19/2021 CBC W/DIF F RDW 14.0 % 11.0-[address] [facility] (Lab) [address], [place], [address], 10/20/2021 02:53:19 03/30/20 22 10/19/2021 CBC W/DIF F plt 404 10'3/ uL 150-[address] [facility] (Lab) [address], [place], [address], 10/20/2021 02:53:19 10/20/19 22 10/19/2021 CBC W/DIF F MPV 9.4 fL 9.8-12 .[address] [facility] (Lab) [address], [place], [address], 10/20/2021 02:53:19 10/20/19 22 10/19/2021 CBC W/DIF F NRBC's 0.00 % [address] [facility] (Lab) [address], [place], [address], 10/20/2021 02:53:19 10/20/19 22 10/19/2021 CBC W/DIF F absolute NRBCs 0.0 10'3/ uL [address] [facility] (Lab) [address], [place], [address], 10/20/2021 02:53:19 10/20/19 22 10/19/2021 CBC W/DIF F neutrophils 56.0 % 37.0-[address] [facility] (Lab) [address], [place], [address], 10/20/2021 02:53:19 10/20/19 22 10/19/2021 CBC W/DIF F lymphocytes 37.0 % 16.0-[address] [facility] (Lab) [address], [place], [address], 10/20/2021 02:53:19 10/20/19 22 10/19/2021 CBC W/DIF F monocytes 5.0 % 4.0-[address] [facility] (Lab) [address], [place], [address], 10/20/2021 02:53:19 10/20/19 22 10/19/2021 CBC W/DIF F eosinophils 1.0 % 0.0-9. [address] [facility] (Lab) [address], [place], [address], 10/20/2021 02:53:19 10/20/19 22 10/19/2021 CBC W/DIF F basophils 1.0 % 0.0-2. [address] [facility] (Lab) [address], [place], [address], 10/20/2021 02:53:19 10/20/19 22 10/19/2021 CBC W/DIF F immature granulocytes 0.0 % no define d refere nce range Not Available [facility] (Lab) [address], [place], [address], 10/20/2021 02:53:19 10/20/19 22 10/19/2021 CBC W/DIF F absolute neutrophils 4.3 10'3/ uL 1.1-6. [address] [facility] (Lab) [address], [place], [address], 10/20/2021 02:53:19 10/20/19 22 10/19/2021 CBC W/DIF F absolute lymphocytes 2.8 10'3/ uL 0.7-3. [address] [facility] (Lab) [address], [place], [address], 10/20/2021 02:53:19 10/20/19 22 10/19/2021 CBC W/DIF F absolute monocytes 0.4 10'3/ uL 0.3-1. [address] [facility] (Lab) [address] [place], [address], 10/20/2021 02:53:19 10/20/19 22 10/19/2021 CBC W/DIF F absolute eosinophils 0.1 10'3/ uL 0.0-0. [address] [facility] (Lab) [address], [place], [address], 10/20/2021 02:53:19 10/20/19 22 10/19/2021 CBC W/DIF F absolute basophils 0.0 10'3/ uL 0.0-0. [address] [facility] (Lab) [address], [place], [address], 10/20/2021 02:53:19 10/20/19 22 10/19/2021 CBC W/DIF F absolute immature granulocytes 0.00 10'3/ uL 0.00-0 .10 2021 1:49 AM: P indic ates parti al resul ts on a panel have been relea sed. Addit ional resul ts will follo w. 2021 1:50 AM: This resul t has been final verif ied. No addit ional or carson ed resul ts are expec cristhian. Not Available [facility] (Lab) [address], [place], [address], 10/20/2021 02:53:19 07/07/20 21 07/07/2021 US, pelvi s, trans abdom inal + trans vagin al No observ ation record ed. joe Martinez [address] [place] [address], [place], [address], 08/09/2021 13:27:55 07/07/20 21 07/07/2021 US, pelvi s No observ ation record ed. [email or web address] [place] [address], [place], [address], 07/07/2021 17:29:20 07/07/20 21 07/07/2021 US, trans vagin al No observ ation record ed. [email or web address] [place] [address], [place], [address], 07/07/2021 17:29:32 Result Notes None recorded. Problems Name Problem SNOMED Code Status Onset Date Resolution Date Notes Provider Name and Address Organization Details Recorded Time Pain in female genitali a Completed 201610/25/2020 Dysmenor tom;Rec orded Elsewher e: No Locat ion: Leonel isaiah [facility] N Gurinderti ce ID: 0001 Conner lable Time: 09:30:00 AM Jenelle bennett [facility] 18:27:58 Finding of menstrua l bleeding Completed 201610/25/2020 Menorrha solomon;Shaheen rded Elsewher e: No [facility] cristóbal: N Gurinderti ce ID: 0001 Conner lable Time: 09:30:00 AM Jenelle bennett, [facility] 18:27:59 Atypical squamous cells of undeterm ined signific ance on cervical Papanico laou smear [id number] Completed 201610/25/2020 Atyp squam cell of undet signfc cyto smr crvx (ASC-US) ;Recorde d Elsewher e: No [facility]: N Gurinderti ce ID: 0001 Conner lable Time: 11:16:07 AM Jenelle Hendricks [facility] 18:27:55 Finding of pattern of menstrua l cycle Completed 201610/25/2020 Other specifie d irregula r menstrua tion;Rec orded Elsewher e: No Locat ion: Vandanadori isaiah [facility] S ource: [facility] cristóbal: N Gurinderti ce ID: 0001 Conner lable Time: 02:45:00 PM Jenelle bennett [facility] 18:28:01 Pregnanc y test negative [id number] Completed 201610/25/2020 Encounte r for pregnanc y test, result negative ;Recorde d Elsewher e: No Locat ion: [facility] S ource: [facility] Hand cristóbal: N Practi ce ID: 0001 Conner lable Time: 10:30:00 AM Jenelle bennett [facility] 18:28:08 Human papillom avirus deoxyrib onucleic acid detected , high risk on cervical specimen [id number] Completed 201610/25/2020 Cervical high risk HPV DNA test positive ;Recorde d Elsewher e: No Locat ion: [facility] S ource: [facility] cristóbal: N Practi ce ID: 0001 Conner lable Time: 03:15:00 PM Jenelle bennett [facility] 18:28:02 Body mass index 30+ - obesity [id number] Completed 201710/25/2020 Body mass index (BMI) 32.0-32. 9, adult;Re corded Elsewher e: No Locat ion: [facility] S ource: [facility] Hand cristóbal: N Practi ce ID: [id number] Conner lable Time: 11:30:00 AM Jenelle bennett, [facility] 18:27:[address] Concept Completed 201710/25/2020 Encntr for general adult medical exam w/o abnormal findings ;Recorde d Elsewher e: No Locat ion: [facility] S ource: [facility] Hand cristóbal: N Practi ce ID: [id number] Conner lable Time: 11:30:00 AM Jenelle bennett [facility] 18:28:10 Increase d frequenc y of urinatio n [id number] Completed 201710/25/2020 Frequenc y of micturit ion;Prac willie ID: 0001 Jenelle bennett [facility] 18:28:04 Vaginola bial hernia Completed 201810/25/2020 Other specifie d noninfla mmatory disorder s of vagina;R ecorded Elsewher e: No [facility] Hand cristóbal: N Gurinderti ce ID: 0001 Conner lable Time: 01:00:00 PM Jenelle bennett [facility] 18:28:14 Pelvic and perineal pain [id number] Completed 201810/25/2020 Pelvic pain;Rec orded Elsewher e: No Locat ion: [facility] N Practi ce ID: 0001 Conner lable Time: 01:00:00 PM Jenelle bennett [facility] 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: N Gurinderti ce ID: 0001 Conner lable Time: 08:30:00 AM Jenelle bennett [facility] 18:28:11 Infectio n screenin g Completed 201810/25/2020 Encounte r for screenin g for oth infec/pa rastc diseases ;Recorde d Elsewher e: No Locat ion: [facility] S ource: [facility] cristóbal: N Gurinderti ce ID: 0001 Conner lable Time: 08:30:00 AM Jenelle bennett [facility] 18:28:05 Syphilis test finding [id number] Completed 201810/25/2020 Encntr screen for infectio ns w sexl mode of transmis s;Record ed Elsewher e: No Locat ion: [facility] N Gurinderti ce ID: 0001 Conner lable Time: 08:30:00 AM Jenelle bennett [facility] 18:28:13 Problem Notes None recorded. Procedures Surgical History Date Name Laterality Status Provider Name and Address Organization Details Recorded Time 9 Date of Last Pap Smear completed [facility] 06/29/2021 14:16:49 7 Colposcopy completed Jenelle Nunezan [facility] 10/26/2020 09:32:56 4 section completed [facility] 06/29/2021 14:14:13 2 section completed [facility] 06/29/2021 14:14:21 1 section completed [facility] 06/29/2021 14:14:28 7 section completed [facility] 06/29/2021 14:14:34 Imaging Results None recorded. Procedure Notes None recorded. Medical Equipment None Reported. Allergies No known drug allergies Medications Name Sig Start Date Stop Date Status Note LastModified by Organization Details LastModified Time azithromy alma 250 mg tablet TAKE 2 TABLETS BY MOUTH TODAY, THEN TAKE 1 TABLET DAILY FOR 4 DAYS 10/19 completed Not Available Not Available Not Available ibuprofen 800 mg tablet 10/19 completed Not Available Not Available Not Available prednison e 20 mg tablet 10/19 completed Not Available Not Available Not Available sumatript an 50 mg tablet 10/19 completed Not Available Not Available Not Available Metrogel Vaginal 0.75 % (37.5 mg/5 gram) insert 1 applicat orful by vaginal route every day at bedtime 10/25 completed Prescrib ed Elsewher e: No Locat ion: Xu butler [facility] M odify By: reno justin DateTime : 10/29/19 09:31:01 AM Not Available Not Available Not Available Depo-Prov era 150 mg/mL intramusc ular suspensio n Inject 1 mL every 3 months by intramus cular route. 2021 active Not Available Not Available Not Avai lable Flagyl 500 mg tablet take 1 tablet by oral route every 12 hours 02/02 completed Prescrib ed Elsewher e: No Locat ion: [facility] odify By: amkuhl E ncounter DateTime : 10/19/19 17 11:30:37 AM Not Available Not Available Not Available ferrous sulfate 325 mg (65 mg iron) tablet active Not Available Not Available Not Available albuterol sulfate HFA 90 mcg/actua tion aerosol inhaler inhale 2 puff by inhalati on route every 4 - 6 hours as needed active Not Available Not Available No t Available fluticaso ne propionat e 50 mcg/actua tion nasal spray,helen pension active Not Available Not Available Not Available loratadin e 10 mg tablet TAKE 1 TABLET BY MOUTH EVERY DAY active Not Available Not Available No t Available naproxen 500 mg tablet 10/19 completed Not Available Not Available Not Available neomycin- polymyxin -hydrocor t 3.5 mg-10,000 unit/mL-1 % ear drops,helen p active Not Available Not Available Not Available Depo-Prov era 150 mg/mL intramusc ular syringe Inject 1 mL every 3 months by intramus cular route. 2021 active Not Available Not Available Not Avai lable Atrovent HFA 17 mcg/actua tion aerosol inhaler inhale 2 puff by inhalati on route 4 times every day active Not Available Not Available No t Available Clarinex active Not Available Not Avai lable Not Available Symbicort 160 mcg-4.5 mcg/actua tion HFA aerosol inhaler inhale 2 puff by inhalati on route 2 times every day in the morning and evening 10/25 completed Prescrib ed Elsewher e: Yes Loca tion: [facility] odify By: amkuhl E ncounter DateTime : 02/24/20 17 02:45:00 PM Not Available Not Available Not Available cholecalc iferol (vitamin D3) 1,250 mcg (50,000 unit) capsule TAKE 1 CAPSULE BY MOUTH ONCE A WEEK FOR 8 DOSES active Not Available Not Available No t Available loratadin e 10 mg capsule 10/25 completed Prescrib ed Elsew e: Yes Loca tion: [facility] Len torres By: nadja villa DateTime : 10/19/19 01:00:00 PM Not Available Not Available Not Available Flonase Allergy Relief active Not Available Not Available Not Available Wixela Inhub 250 mcg-50 mcg/dose powder for inhalatio n active Not Available Not Available Not Available Wixela Inhub 500 mcg-50 mcg/dose powder for inhalatio n INHALE 1 (ONE) PUFF BY MOUTH 2 TIMES DAILY active Not Available Not Available No t Available Wixela Inhub 100 mcg-50 mcg/dose powder for inhalatio n Inhale 1 puff twice a day by inhalati on route. active Not Available Not Available No t Available mecobalam in (vitamin B12) 10,000 mcg solution for injection Take by injectio n route. active Not Available Not Available No t Available Vitals Date Recorded Body height Body mass index (BMI) Body weight Systolic And Diastolic Provider Name and Address Organization Details Last Updated DateTime 08/04/2021 153.04 cm 33.5 kg/m2 78499.48 g 115/77 mm[Hg] [facility] 08/04/2021 09:47:58 Date Recorded Body height Provider Name an d Address Organization Details Last Updated DateTime 08/05/[address] [facility] 08/05/2021 10:42:54 Date Recorded Body height Body mass index (BMI) Body weight Systolic And Diastolic Provider Name and Address Organization Details Last Updated DateTime 10/19/2021 153.04 cm 33.7 kg/m2 18360.07 g 112/72 mm[Hg] [facility] 10/19/2021 16:56:01 Date Recorded Body height Body mass index (BMI) Body weight Systolic And Diastolic Provider Name and Address Organization Details Last Updated DateTime 06/29/2021 153.04 cm 32.7 kg/m2 91522.11 g 123/85 mm[Hg] Hanane Vargas [facility] 06/29/2021 14:11:55 Social History Question Answer Notes LastModified by Organizat ion Details LastModified Time Tobacco Smoking Status Never Smoker Jenelle Hendricks donald, [facility] 10/26/2020 09:35:56 If You Are , What Was Your Level Of Alcohol Consumption Prior To ? None [email or web address] Information not available 06/29/2021 Are You Blind Or Do You Have Difficulty Seeing? No [email or web address] Information n ot available 06/29/2021 What Is Your Level Of Caffeine Consumption? Occasional Information not available 06/29/2021 In The 14 Days Before Symptom Onset, Have You Had Close Contact With A Laboratory-confirm ed COVID-19 While That Case Was Ill? No [email or web address] Information n ot available 06/29/2021 In The 14 Days Before Symptom Onset, Have You Had Close Contact With A Person Who Is Under Investigation For COVID-19 While That Person Was Ill? No [email or web address] Information not available 06/29/2021 Have You Been To An Area Known To Be High Risk For COVID-19? No [email or web address] Information not available 06/29/2021 Are You Deaf Or Do You Have Serious Difficulty Hearing? No [email or web address] Information not available 06/29/2021 What Type Of Diet Are You Following? REGULAR [email or web address] Information n ot available 06/29/2021 Do You Use Your Seat Belt Or Car Seat Routinely? Yes [email or web address] Information not available 06/29/2021 Do You Have Smoke And Carbon Monoxide Detectors In Your Home? Yes [email or web address] Information not available 06/29/2021 Do You Use Sunscreen Routinely? Yes [email or web address] Information not available 06/29/2021 Sex: Unknown Functional Status Question Answer Note LastModified by Organizat ion Details LastModified Time What is your level of alcohol consumption? Occasional [email or web address] Information not available 06/29/2021 Are you able to walk independently without assistance or assistive devices? YESWOREST [email or web address] Information not available 06/29/2021 What is your exercise level? Occasional [email or web address] Information not available 06/29/2021 Mental Status Question Answer Note LastModified by Organization D etails LastModified Time Do you feel stressed (tense, restless, nervous, or anxious, or unable to sleep at night)? [id number] [email or web address] Information not available 06/29/2021 Family History Relationship Description Onset Age of this Age Resolved Age Notes LastModified by Organization Details LastModified Time Father No current problems or disability [email or web address] Not available 10/26 09:35:47 Mother No current problems or disability [email or web address] Not available 10/26 09:35:47 Medical History Condition Response Allergies (Food, seasonal, environmental ) Y Other N Drug/Latex Allergies/Reactions N Blood Transfusion N Breast Cancer N Dermatologic Disorders N Lung Disease N Defects or Inherited Disease N Breast Problem N Gestational Diabetes N Hematologic disorders N Anesthesia Complications N History of STI N Deep Vein Thrombosis N Polycystic ovary syndrome N Anxiety Disorder N Autoimmune disease N Arthritis N Polyps N Infertility N Acid Reflux (GERD) N History of abnormal pap N Cancer N Varicosities N Stroke N Neurologic/Epilepsy N Endometriosis N High Cholesterol N Fibromyalgia N Headaches N Kidney Disease N Heart Problems N Thyroid Problems N Kidney or Bladder Problems N GI Problems N Eating Disorder N Anemia N Art (IVF or FET) N Psychiatric Illness N Ovarian Cancer N Diabetes N Pulmonary (TB, Asthma) N Hepatitis/Liver Disease N No Past Medical History N Eczema N Urinary Tract Infection N Abuse/Domestic Violence N Asthma Y Trauma/Violence N Depression/ depression N Heart Disease N Pre-Eclampsia N Hypertension Y Osteoporosis N Thrombophilias N Gynecological History Statement/Question Response Abnormal Pap Date of LMP 06/14/2021 On BCP's at Conception? N STIs/STDs Y Colposcopy 02/23/2017 Date of Last Pap Smear 03/21/2019 Sexual Problems? N Current Control Method Tubal Ligat ion Desired Control Method Diaphragm LMP Approximate Obstetrics History GPAL:G 4 P 4 0 0 4 Type Value Full Term 4 Living 4 Total 4 Past Encounters Encounter ID Performer Location Encounter Start Date Encounter Closed Date Diagnosis/Indication Diagnosis SNOMED-CT Code Diagnosis ICD10 Code Diagnosis IMO Codes Diagnosis Note [id number] Lisa Vines CNM [facility] [address] [address] 06/29/2021 13:47:22 06/29/2021 17:03:43 Menorrhagia 731765766 N92.0 [id number] Sam Marino MD [facility] [address] [address] 07/07/2021 15:30:55 07/07/2021 17:28:51 Menorrhagia 561602542 N92.0 [id number] Sam Marino MD [facility] [address],[place] [address] 08/04/2021 09:18:25 08/04/2021 11:21:45 Menorrhagia 174597211 N92.0 this patient is a 41-year-ol d female presents for follow-up on ultrasound . She has severe menorrhagi a. Her ultrasound revealed a 6 cm fibroid. We talked about fibroids in detail. Talked about the etiology, natural history, treatment of. We talked about all her treatment options and their respective risks and benefits. Talked about the efficacy of treatment options. Talked about definitive treatment options. We talked about uterine artery embolizati on. We talked about all the medical options. Patient has history of taking Depo and tolerating it well. She would like to try Depo-Prove ra. She was prescribed Depo-Prove ra. We spent 25 minutes face-to-fa ce talking about multiple complex topics. This issues complex and she will return in 3 months. Uterine leiomyoma 202269 05 D25.9 [id number] Sam Marino MD [facility] [address] [address] 08/05/2021 09:48:29 08/05/2021 15:29:30 Screening procedure [id number] Z13.9 Menorrhagia 274428005 N9 2.0 this patient is a 41-year-ol d female presents for follow-up on ultrasound . She has severe menorrhagi a. Her ultrasound revealed a 6 cm fibroid. We talked about fibroids in detail. Talked about the etiology, natural history, treatment of. We talked about all her treatment options and their respective risks and benefits. Talked about the efficacy of treatment options. Talked about definitive treatment options. We talked about uterine artery embolizati on. We talked about all the medical options. Patient has history of taking Depo and tolerating it well. She would like to try Depo-Prove ra. She was prescribed Depo-Prove ra. We spent 25 minutes face-to-fa ce talking about multiple complex topics. This issues complex and she will return in 3 months. [id number] Sam Marino MD [facility] [address] [address] 10/19/2021 16:45:03 10/19/2021 17:51:50 Uterine leiomyoma 26145632 D25.9 Abnormal u terine bleeding [id number] 9100 N93.9 This patient is a 41-year-ol d female presents for follow-up on abnormal uterine bleeding and fibroids. We had started treatment 2 and half months ago. She was treated with Depo-Prove ra. 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 We agreed that discussed the bleeding and the 1st 3-4 months of Depo-Prove ra is common. We agreed remedy with an added combined hormone patch. Ortho Evra patch for 2 weeks. She is going to return in 2 weeks for repeat Depo shot and a visit with me to check on her bleeding. We are getting a CBC today. We spent 15 minutes face-to-fa ce discussed various aspects of her care. This is a complex bleeding Concern. Health Concerns Section Related Observation LastModified by Organization Detai ls LastModified Time None Recorded Concern Status LastModified by Organization Details LastModified Time None Recorded Advance Directives Directive None Recorded Payers Insurance Date Sequence Insurance Name Policy Number Policy Sarah Covered Member ID Sarah Member ID Guarantor Name 06/15/2021 1 *SELF PAY* Jose Gillette 10/19/2021 1 [facility] - DOS ON OR AFTER 21 (MEDICAID REPLACEMENT - HMO) Natalie Gillette [id number] Natalie Gillette Notes Date Note Type Note Provider Name and Address Organization Details Recorded Time 06/29/2021 text/html ROS as noted in the HPI having monthly cycles, but some are so heavy now saturating through unsure how many/hour. getting blood/iron transfusion by pcp due to anemia, not every cycle is that heavy but most are, has not had blood work up or US for bleeding yet, tubal as bcm Lisa Vines, CN [address], [place], [address], [facility] 06/29/2021 14:40:05 08/04/2021 text/html this patient is a 41-year-old female presents for follow-up on ultrasound. She has severe menorrhagia. Her ultrasound revealed a 6 cm fibroid. We talked about fibroids in detail. Talked about the etiology, natural history, treatment of. We talked about all her treatment options and their respective risks and benefits. Talked about the efficacy of treatment options. Talked about definitive treatment options. We talked about uterine artery embolization. We talked about all the medical options. Patient has history of taking Depo and tolerating it well. She would like to try Depo-Provera. She was prescribed Depo-Provera. We spent 25 minutes [id number] talking about multiple complex topics. This issues complex and she will return in 3 months. Sam Marino MD [address], [place], [address], [facility] 08/04/2021 11:13:00 10/19/2021 text/html This patient is a 41-year-old female presents for follow-up on abnormal uterine bleeding and fibroids. We had started treatment 2 and half months ago. She was treated with Depo-Provera. 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 We agreed that discussed the bleeding and the 1st 3-4 months of Depo-Provera is common. We agreed remedy with an added combined hormone patch. Ortho Evra patch for 2 weeks. She is going to return in 2 weeks for repeat Depo shot and a visit with me to check on her bleeding. We are getting a CBC today. We spent 15 minutes [id number] discussed various aspects of her care. This is a complex bleeding Concern. Sam Marino MD [address], [place], [address], [facility] 10/19/2021 17:44:38 OBGyn Episode Ob Episode Information Episode Created Date Number of Fetuses Patient Bloodtype Patient rh Status Prepregnancy Weight lbs Domestic Partner Domestic Partner Phone Father Name Typer Status 10/27/19 21 1 CLOSED Fetus Data First Name Last Name Admitted to NICU Weight (g) Sex Living Outcome Pediatric Complications Fetus ID Race Codes Race Delivery Type 3288.54 2 F Full Term 8830 Primary Antonio Calculation Initial Antonio Date Initial Exam Date Initial Exam Provider Initial Ultrasound Date Last Menstrual Period Date Ultra Sound Weeks Gestation 0 Eighteen To Twenty Week Antonio Update Ultra Sound Date Fundal Height At Umbil Quickening Date Ultra Sound Latest Weeks Gestation Final Antonio Confirmed By Final Antonio Confirmed Date Final Antonio Date Ultra Sound Latest Days Gestation 0 0 Menstrual History Last Menstrual Date Menses Monthly On Bcp Conception Prior Menses Frequency Hcg Plus Date Menarche Onset Age Delivery Information Delivery Date Delivery Type Labor Anesthesia Weeks Gestation Incision Type Labor Labor Length Hrs Delivered By Post Complications Tubal Sterilization Discharge Date Comments 7 ghtn Discharge Information Feeding Method Contraceptive Method Maternal HG B and HCT Levels Ob Episode Information Episode Created Date Number of Fetuses Patient Bloodtype Patient rh Status Prepregnancy Weight lbs Domestic Partner Domestic Partner Phone Father Name Typer Status 10/27/19 21 1 CLOSED Fetus Data First Name Last Name Admitted to NICU Weight (g) Sex Living Outcome Pediatric Complications Fetus ID Race Codes Race Delivery Type 2834.95 F 8828 Repeat Antonio Calculation Initial Antonio Date Initial Exam Date Initial Exam Provider Initial Ultrasound Date Last Menstrual Period Date Ultra Sound Weeks Gestation 0 Eighteen To Twenty Week Antonio Update Ultra Sound Date Fundal Height At Umbil Quickening Date Ultra Sound Latest Weeks Gestation Final Antonio Confirmed By Final Antonio Confirmed Date Final Antonio Date Ultra Sound Latest Days Gestation 0 0 Menstrual History Last Menstrual Date Menses Monthly On Bcp Conception Prior Menses Frequency Hcg Plus Date Menarche Onset Age Delivery Information Delivery Date Delivery Type Labor Anesthesia Weeks Gestation Incision Type Labor Labor Length Hrs Delivered By Post Complications Tubal Sterilization Discharge Date Comments 2 Discharge Information Feeding Method Contraceptive Method Maternal HG B and HCT Levels Ob Episode Information Episode Created Date Number of Fetuses Patient Bloodtype Patient rh Status Prepregnancy Weight lbs Domestic Partner Domestic Partner Phone Father Name Typer Status 10/27/19 21 1 CLOSED Fetus Data First Name Last Name Admitted to NICU Weight (g) Sex Living Outcome Pediatric Complications Fetus ID Race Codes Race Delivery Type 3458.63 9 Full Term 8827 Repeat Antonio Calculation Initial Antonio Date Initial Exam Date Initial Exam Provider Initial Ultrasound Date Last Menstrual Period Date Ultra Sound Weeks Gestation 0 Eighteen To Twenty Week Antonio Update Ultra Sound Date Fundal Height At Umbil Quickening Date Ultra Sound Latest Weeks Gestation Final Antonio Confirmed By Final Antonio Confirmed Date Final Antonio Date Ultra Sound Latest Days Gestation 0 0 Menstrual History Last Menstrual Date Menses Monthly On Bcp Conception Prior Menses Frequency Hcg Plus Date Menarche Onset Age Delivery Information Delivery Date Delivery Type Labor Anesthesia Weeks Gestation Incision Type Labor Labor Length Hrs Delivered By Post Complications Tubal Sterilization Discharge Date Comments 4 Discharge Information Feeding Method Contraceptive Method Maternal HG B and HCT Levels Ob Episode Information Episode Created Date Number of Fetuses Patient Bloodtype Patient rh Status Prepregnancy Weight lbs Domestic Partner Domestic Partner Phone Father Name Typer Status 10/27/19 21 1 CLOSED Fetus Data First Name Last Name Admitted to NICU Weight (g) Sex Living Outcome Pediatric Complications Fetus ID Race Codes Race Delivery Type 3515.33 8 M Full Term 8829 Repeat Antonio Calculation Initial Antonio Date Initial Exam Date Initial Exam Provider Initial Ultrasound Date Last Menstrual Period Date Ultra Sound Weeks Gestation 0 Eighteen To Twenty Week Antonio Update Ultra Sound Date Fundal Height At Umbil Quickening Date Ultra Sound Latest Weeks Gestation Final Antonio Confirmed By Final Antonio Confirmed Date Final Antonio Date Ultra Sound Latest Days Gestation 0 0 Menstrual History Last Menstrual Date Menses Monthly On Bcp Conception Prior Menses Frequency Hcg Plus Date Menarche Onset Age Delivery Information Delivery Date Delivery Type Labor Anesthesia Weeks Gestation Incision Type Labor Labor Length Hrs Delivered By Post Complications Tubal Sterilization Discharge Date Comments 1 GHTN Discharge Information Feeding Method Contraceptive Method Maternal HG B and HCT Levels
--- OUTSIDE RECORDS SUMMARY | 2025-06-27 19:40 | XMS_ITS | Encounter Summary ---
Author Organization [facility] Address [address] [place] [address] Care Team Providers Care Cathode Washer Name Role Phone Edie Foster NP Primary Care Provider [phone] Reason for Visit * Auth/Cert (Routine) Specialty Diagnoses / Procedures Referred By Contac t Referred To Contact Diagnoses Anemia, unspecified type Constipation, unspecified constipation type Anemia, unspecified type [D64.9] Constipation, unspecified constipation type [K59.00] Procedures CT COLONOSCOPY,DIAGNOSTIC COLONOSCOPY Referral ID Status Reason Start Date Expiration Date Visits Re quested Visits Authorized [id number] 1 1 Encounter Details Date Type Department Care Team (Late st Contact Info) Description 06/23/2025 Hospital Encounter [facility] [address] [place] [address] Braden Bhagat MD 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 Never 03/17/2025 9:00 AM Sheron Piña RN Q2: How many drinks containing alcohol do you have on a typical day when you are drinking? Patient does not drink 03/17/2025 9:00 AM Sheron Piña RN Q3: How often do you have six or more drinks on one occasion? Never 03/17/2025 9:00 AM CDT Sheron Hernandez RN * BP Location Answer Date of Assessment Author Left arm 03/16/2025 1:19 PM CDT Jerrod Gallardo MA documented as of this encounter Miscellaneous Notes * Pre-Procedure Instructions - Sheron Hernandez RN - 03/17/2025 9:01 AM CDT - No alcohol or smoking 12 hours before surgery - Proctor teeth in the morning but don't swallow any of the water - Shower or bathe, don't apply powders or lotions - Expect to remove wigs, dentures, partials, contact lenses, body piercing's, and hair accessories containing metal - Leave all jewelry and valuables at home - Bring your glasses and hearing aides - Make plans for a responsible adult to bring you home - Bring a living will or POA paperwork if you have it - Follow GI physician instructions regarding blood thinners and vitamins Pt has instructions for holding eliquis from [facility]'s office to follow. - Bring inhalers Pt informed of need for urine spec. For preg test on arrival. - Take prep according to GI physician, pt is doing a 2 day prep. - Please take the following medications with a sip of water the AM of the procedure: zofran and tylenol if neededastelin nasal spray, clarinex, prozac, flonase, prilosec, Location ([facility] 1 Entrance A, [address] [place] [address], [place] [address]), arrival time (614), procedure time (714), NPO status (nothing to eat or drink aftermidnight the night before the procedure) also reviewed. Patient expressing understanding of all pre-op instructions. documented in this encounter Plan of Treatment Not on file documented as of this encounter Visit Diagnoses Diagnosis Constipation- Primary Unspecified constipation Anemia Unspecified anemia documented in this encounter Admitting Diagnoses Diagnosis Anemia Unspecified anemia Constipation Unspecified constipation documented in this encounter Care Teams Cathode Washer Relationship Specialty Start Date End Date Edie Foster NP [address] [place] [address] [address] [place] [address] PCP - General Nurse Practitioner 06/10/24 documented as of this encounter
[2025-06-27 19:43] VITALS: BP 128/77; PULSE 94; RESP 16; TEMP 36.6; O2SAT 100
--- OUTSIDE RECORDS SUMMARY | 2025-06-27 23:21 | XMS_ITS | Clinical Summary ---
Author Organization [facility] Address [address] [place] [address] Care Team Providers Care Line Out Worker Name Role Phone Boogie Cavazos Primary Care Provider [phone] Allergies Active Allergy Reactions Criticality Noted Date [...] complication, unspecified asthma severity, unspecified whether persistent ([facility]) INHALE 1 PUFF BY MOUTH TWICE A DAY 60 each 2 0 Active fluticasone propionate (FLONASE) 50 MCG/ACT nasal spray 1 spray by Each Nostril route daily. 16 g 1 Active vitamin D2, ergocalciferol, 45344 UNITS capsule Take 50,000 Units by mouth [...] Department Care Team Description 06/23/2025 11:26 AM BREASTFEEDING PROGRAM COORDINATOR - 06/23/2025 2:08 PM [facility] Emergency [facility] [place] [address] Basia Cao PA Fall Discharge Disposition: Home [...] Sex Assigned at Female 06/23/2025 11:34 AM BREASTFEEDING PROGRAM COORDINATOR Legal Sex Female 8:12 PM CDT Gender Identity Not on file Sexual Orientation Not on file Last Filed Vital Signs Vital Sign Reading Time Taken Comments Blood Pressure 115/82 06/23/2025 2:00 PM BREASTFEEDING PROGRAM COORDINATOR Pulse 95 06/23/2025 2:00 PM BREASTFEEDING PROGRAM COORDINATOR Temperature 36.4 C (97.5 F) 06/23/2025 11:26 AM BREASTFEEDING PROGRAM COORDINATOR Respiratory Rate 16 06/23/2025 2:00 PM BREASTFEEDING PROGRAM COORDINATOR Oxygen Saturation 100% 06/23/2025 2:00 PM BREASTFEEDING PROGRAM COORDINATOR Inhaled Oxygen Concentration - - Weight 81.6 kg (180 lb) 06/23/2025 11:26 AM BREASTFEEDING PROGRAM COORDINATOR Height 149.9 cm (4' 11) 06/23/2025 11:26 AM BREASTFEEDING PROGRAM COORDINATOR Body Mass Index 36.36 06/23/2025 11:26 AM BREASTFEEDING PROGRAM COORDINATOR Plan of Treatment Health Maintenance Due Date [...] FOOT LT 3V STAT 06/23/2025 12:02 PM BREASTFEEDING PROGRAM COORDINATOR XR ANKLE LT M3V STAT 06/23/2025 12:02 PM BREASTFEEDING PROGRAM COORDINATOR from Last 3 Months Results * XR FOOT LT 3V (06/23/2025 12:02 PM BREASTFEEDING PROGRAM COORDINATOR) Anatomical Region Laterality Modality Foot Radiographic Francie ging 06/23/2025 12:0 3 PM BREASTFEEDING PROGRAM COORDINATOR Impressions 06/23/2025 12:06 PM BREASTFEEDING PROGRAM COORDINATOR IMPRESSION: Acute fracture of the distal fibula. Ordered By: BASIA CAO Interpreted By: Kurt Bruce MD, 06/23/2025 12:03 PM Narrative 06/23/2025 12:06 PM BREASTFEEDING PROGRAM COORDINATOR [address] [address] XR ANKLE LT M3V, XR FOOT LT [...] Procedure Note Kurt Bruce MD - 06/23/2025 [facility] [address] [place], [place] [address] XR ANKLE LT M3V, XR FOOT LT [...] XR ANKLE LT M3V (06/23/2025 12:02 PM BREASTFEEDING PROGRAM COORDINATOR) Anatomical Region Laterality Modality Ankle Radiographic Francie ging 06/23/2025 12:0 3 PM BREASTFEEDING PROGRAM COORDINATOR Impressions 06/23/2025 12:06 PM BREASTFEEDING PROGRAM COORDINATOR IMPRESSION: Acute fracture of the distal fibula. Ordered By: BASIA CAO Interpreted By: Kurt Bruce MD, 06/23/2025 12:03 PM Narrative 06/23/2025 12:06 PM BREASTFEEDING PROGRAM COORDINATOR [facility] [address] XR ANKLE LT M3V, XR FOOT LT [...] Procedure Note Kurt Bruce MD - 06/23/[address] [address] XR ANKLE LT M3V, XR FOOT LT [...] Insurance Medicaid I-Pending on file Care Teams Line Out Worker Relationship Specialty Start Date End Date Boogie Cavazos PA PCP - General PHYSICIAN BICYCLE II ASSEMBLER 10/09/17
--- OUTSIDE RECORDS SUMMARY | 2025-06-27 23:21 | XMS_ITS | Clinical Summary ---
Author Organization [facility] [employer] Address [address] [facility] [place] [address] Care Team Providers Care Groundsman Name Role Phone Edie Foster MATT-DISTRIBUTOR OF DIRECTORIES Primary Care Provider Source Comments [facility],non-owned Affiliates and Associated Physician Practices is amultiple site organization consisting of ambulatory clinics and hospital sitesin [place], [place], [place] and [place]. This disclosure is being madepursuant to the Care Everywhere program and may not contain all information available regarding this patient. Last updated 18.[facility] [employer] Allergies Active Allergy Reactions Criticality Noted Date [...] sprayIndications: Allergic rhinitis, unspecified seasonality, unspecified trigger [place] 2 (two) sprays into each nostril once [...] sprayIndications: Allergic rhinitis, unspecified seasonality, unspecified trigger [place] 1 (one) spray into each nostril 2 [...] on file Legal Sex Female 11:06 AM SODA DIALYZER Gender Identity Not on file Sexual Orientation Not on file Occupation Industry Job Start Date Job End Date [employer] Not on file Not on file Not [...] st Contact Info) Description 07/14/2025 10:30 AM SODA DIALYZER Office Visit [facility] - Pulmonology [address] [facility] [place] [address] Darrin Mahoney MD [facility] DIV OF PULMONARY/[place] [address] 09/09/2025 11:40 AM SODA DIALYZER [facility] [address] [facility] [address] [place] [address] Dwight Somers MD [address] [facility] [address] [place] [address] Health Maintenance Due Date Last Done Comments [...] COMPREHENSIVE METABOLIC PANEL Routine 08/28/2014 4:20 PM SODA DIALYZER Shortness of breath from Last 3 Months or Most Recently Relevant to Health Maintenance Results * COMPREHENSIVE METABOLIC PANEL (08/28/2014 4:20 PM SODA DIALYZER) [facility] Glucose 86 74 - 106 mg/dL 08/28/2014 4:52 PM SODA DIALYZER [facility] Sodium 140 136 - 145 mmol/L 08/28/2014 4:52 PM SODA DIALYZER [facility] Potassium 3.6 3.5 - 5.1 mmol/L 08/28/2014 4:52 PM SODA DIALYZER [facility] Chloride 106 98 - 107 mmol/L 08/28/2014 4:52 PM SODA DIALYZER [facility] CO2 27 22 - 31 mmol/L 08/28/2014 4:52 PM SODA DIALYZER [facility] Calcium 9.3 8.5 - 10.1 mg/dL 08/28/2014 4:52 PM SODA DIALYZER [facility] Anion Gap 7 5 - 15 mmol/L 08/28/2014 4:52 PM SODA DIALYZER [facility] BUN 12 7 - 21 mg/dL 08/28/2014 4:52 PM SODA DIALYZER [facility] Creatinine 0.57 0.50 - 1.30 mg/dL 08/28/2014 4:52 PM SODA DIALYZER [facility] eGFR by MDRD >60 >60 mL/min/1.7 3m2 08/28/2014 4:52 PM SODA DIALYZER [facility] eGFR by MDRD >60 >60 mL/min/1.7 2 08/28/2014 4:52 PM SODA DIALYZER [facility] Alkaline Phosphatase 60 38 - 126 U/L 08/28/2014 4:52 PM SODA DIALYZER [facility] ALT 19 12 - 78 U/L 08/28/2014 4:52 PM SODA DIALYZER [facility] AST 9 5 - 40 U/L 08/28/2014 4:[address] [facility] Protein Total 8.0 6.4 - 8.2 gm/dL 08/28/2014 4:[address] [facility] Albumin 3.8 3.4 - 5.0 gm/dL 08/28/2014 4:[address] [facility] Bilirubin Total 0.5 0.2 - 1.0 mg/dL 08/28/2014 4:[address] [facility] Blood BLOOD SPECIMEN / Unknown Lab Venipuncture / Unknown 08/28/2014 4:20 PM SODA DIALYZER 08/28/2014 4:20 PM SODA DIALYZER us Stefan Todd MD LAB - CHEMISTRY ORDERABL ES Final Result Performing Organization Address [facility]/State/[facility] Co de Phone Number [facility] [address] [place] [address] from Last 3 Months or Most Recently Relevant to Health Maintenance Insurance [facility] [id number] * Guarantor: ZAKI JOYA RED BUD Account Type Relation to Patient Date of Phone Billing Address [employer] [address] [place] [address] Care Teams Groundsman Relationship Specialty Start Date End Date Edie Foster APRN-DISTRIBUTOR OF DIRECTORIES [address] [facility] [address] [place], [place] [id number] PCP - General Nurse Practitioner Family 03/02/25
--- OUTSIDE RECORDS SUMMARY | 2025-06-27 23:21 | XMS_ITS | Clinical Summary ---
Author Organization [facility] Address [address] [place] [address] Care Team Providers Care Director Of Architecture Name Role Phone Edie Foster NP Primary Care Provider [phone] Allergies Active Allergy Reactions Criticality Noted Date [...] adding a daily probiotic like align or Combined Power -Did discussed possible trial of medication like [...] Department Care Team Description 06/23/2025 Hospital Encounter [facility] GI Lab [address] [place] [address] Braden Bhagat MD 06/02/2025 Orders Only [facility] [place] [address] [facility] [address] [place] [phone] Braden Bhagat MD Anemia, unspecified type (Primary [...] on file Legal Sex Female 6:24 PM MANAGER OF CORPORATE COMMUNICATIONS Gender Identity Not on file Sexual Orientation [...] 36.2 C (97.1 F) 08/04/2024 10:56 AM MANAGER OF CORPORATE COMMUNICATIONS Respiratory Rate 16 08/04/2024 10:56 AM MANAGER OF CORPORATE COMMUNICATIONS Oxygen Saturation 100% 08/04/2024 10:56 AM MANAGER OF CORPORATE COMMUNICATIONS Inhaled Oxygen Concentration - - Weight 81.6 [...] Read Routine (OP Routine) 09/10/2024 7:34 AM MANAGER OF CORPORATE COMMUNICATIONS Encounter for screening mammogram for malignant neoplasm of breast from Last 3 Months or Most Recently Relevant to Health Maintenance Results * Screening Mammogram Bilateral W Jocelin (09/10/2024 7:34 AM MANAGER OF CORPORATE COMMUNICATIONS) Anatomical Region Laterality Modality Breast Bilateral Mammography Impressions 09/10/2024 8:17 AM MANAGER OF CORPORATE COMMUNICATIONS BI-RADS ATLAS category (overall): 2 - Benign There is no mammographic evidence of malignancy. A 1 year screening mammogram is recommended. The patient has been or will be contacted. We recommend annual screening mammography for women at average risk of breast cancer beginning at age 40, based on guidelines of the [employer] (ACR Practice Parameter for the Performance of Screening and Diagnostic Mammography) and [employer]. For women with and elevated risk of breast cancer, please refer to the ACR Practice Parameter for specific screening recommendations. The patient will be entered into a reminder system with a target due date of 1 year for her next screening exam. Narrative 09/10/2024 8:17 AM MANAGER OF CORPORATE COMMUNICATIONS Screening Mammogram Bilateral W Jocelin: 09/10/24 The [...] Most Recently Relevant to Health Maintenance Insurance [facility] Care Teams Director Of Architecture Relationship Specialty Start Date End Date Edie Foster NP [address] [facility] [address] [place] [address] PCP - General Nurse Practitioner 06/10/24
--- OUTSIDE RECORDS SUMMARY | 2025-06-27 23:21 | XMS_ITS | Encounter Summary ---
Author Organization [facility] Address [address] [place] [address] Phone Care Team Providers Care Chairman Ceo Name Role Phone Boogie Cavazos Primary Care Provider Marc Mcnair MD Unavailable Rachel Basurto MD Unavailable Encounter Details Date Type Department Care Team (Late st Contact Info) Description 07/28/2021 Telephone [facility] [address] [place] [address] Marc Mcnair MD [address] [address] Social History Tobacco Use Types [...] COVID-19? No / Unsure 06/30/2021 12:54 PM DUCK OPERATOR documented as of this encounter Miscellaneous Notes * Telephone Encounter - Melissa Ibarra - 07/28/2021 2:00 PM CST PT HAD AN OFFICE VISIT SCHEDULED TODAY, NO SHOW, CALLED PT, LETTER SENT OPERATOR documented in this encounter Plan of Treatment Upcoming Encounters Date Type Department Care Team (Late st Contact Info) Description 09/03/2025 1:15 PM DUCK OPERATOR Office Visit [facility] [address] [place] [phone] Marc Mcnair MD [facility] [facility] [address] [place] [address] documented as of this encounter Visit Diagnoses Not on filedocumented in this encounter Additional Health Concerns Assessment Noted Time PHQ-9 Depression Total Score: 0 06/02/20 21 2:12 PM DUCK OPERATOR documented as of this encounter Care Teams Chairman Ceo Relationship Specialty Start Date End Date Boogie Cavazos PAC [address] [place] [address] [address] [place] [address] PCP - General Family Medicine 05/18/21 Marc Mcnair MD [address] [place] [phone] Consulting Physician Oncology 05/18/21 Rachel Basurto MD [address] [place] [address] [address] [facility] [address] [place] [address] Endocrinology 10/04/22 documented as of this encounter
--- OUTSIDE RECORDS SUMMARY | 2025-06-27 23:21 | XMS_ITS | Encounter Summary ---
Author Organization [facility] Address [address] [place] [address] Phone Care Team Providers Care Wilton Weaver Name Role Phone CavazosBoogie neely Primary Care Provider [phone] Marc Mcnair MD Unavailable [phone] Rachel Basurto MD Unavailable Encounter Details Date Type Department Care Team (Late st Contact Info) Description 05/27/2021 Telephone [facility] [address] [address] Marc Mcnair MD [address] [facility] [place] [address] [address] Social History Tobacco Use Types [...] st Contact Info) Description 09/03/2025 1:15 PM HI TEACHER [facility] [address] [phone] Marc Mcnair MD [address] [facility] [address] [place], [place] [address] documented as of this encounter Visit Diagnoses Not on filedocumented in this encounter Care Teams Wilton Weaver Relationship Specialty Start Date End Date Boogie Cavazos PAC [address] [place] [address] [address] [place] [address] PCP - General Family Medicine 05/18/21 Marc Mcnair MD [address] [place] [address] Consulting Physician Oncology 05/18/21 Rachel Basurto MD [address] [place] [address] [address] [facility] [address] [place] [address] Endocrinology 10/04/22 documented as of this encounter
--- OUTSIDE RECORDS SUMMARY | 2025-06-27 23:21 | XMS_ITS | Encounter Summary ---
Author Organization [facility] Address [address] [place] [address] Care Team Providers Care Shuttlecock Assembler Name Role Phone Edie Foster NP Primary Care Provider [phone] Reason for Visit * Auth/Cert (Routine) Specialty Diagnoses / Procedures Referred By Contac t Referred To Contact Diagnoses Anemia, unspecified type Constipation, unspecified constipation type Anemia, unspecified type [D64.9] Constipation, unspecified constipation type [K59.00] Procedures OK COLONOSCOPY,DIAGNOSTIC COLONOSCOPY Referral ID Status Reason Start Date Expiration Date Visits Re quested Visits Authorized [id number] 1 1 Encounter Details Date Type Department Care Team (Late st Contact Info) Description 06/23/2025 Hospital Encounter [facility] GI Lab [address] [place] [address] Braden Bhagat MD [facility] [address] [address] Social History Tobacco Use Types Packs/Day Years [...] on file Legal Sex Female 6:24 PM AUTOMATION CONTROLS SPECIALIST Gender Identity Not on file Sexual Orientation [...] or smoking 12 hours before surgery - [place] teeth in the morning but don't swallow [...] Pt has instructions for holding eliquis from [facility]'s office to follow. - Bring inhalers Pt informed of need for urine spec. For preg test on arrival. - Take prep according to GI physician, pt is doing a 2 day prep. - Please take the following medications with a sip of water the AM of the procedure: zofran and tylenol if neededastelin nasal spray, clarinex, prozac, flonase, prilosec, Location ([facility] 1 Entrance A, [address] [place] [address], [place] [address]), arrival time (614), procedure time (714), NPO [...] constipation documented in this encounter Care Teams Shuttlecock Assembler Relationship Specialty Start Date End Date Edie Foster NP [address] [place] [address] [address] [place] [address] PCP - General Nurse Practitioner 06/10/24 documented as of this encounter
--- OUTSIDE RECORDS SUMMARY | 2025-06-27 23:21 | XMS_ITS | Clinical Summary ---
Author Organization [facility] Address [address] [place] [address] Phone Care Team Providers Care Archival Records Clerk Name Role Phone Boogie Cavazos Primary Care Provider [phone] Marc Mcnair MD Unavailable Rachel Basurto MD [...] Active mometasone (NASONEX) 50 MCG/ACT Suspension 1 Kennedy by Nasal route. 03/09/20 25 Active methocarbamol [...] HPV DNA test positive;Recorded Elsewhere: No Location: [facility] Source: EHR Chronic: N Practice ID: [id number] Billable Time: 03:15:00 PM Cervical high risk HPV DNA test positive;Recorded Elsewhere: No Location: [facility] Source: EHR Chronic: N Practice ID: [id number] Billable Time: 03:15:00 PM Hypoxemia 02/25/2017 Chronic respiratory failure 10/31/2016 Obesity 09/28/2016 Allergic rhinitis 09/21/2015 Overview (11/17/2021): Overview: ICD-10 update 2015 ICD-10 update 2015 Overview: Overview: ICD-10 update 2015 Hypertrophy of tonsils 09/21/2015 Obstructive sleep apnea syndrome 09/21/2015 Encounters Date Type Department Care Team Description 06/04/2025 3:50 PM RENAL DIALYSIS RN Clinical Support [facility] [address] [address] Nurse, Cc Ofallon B12 deficiency (Primary Dx) 06/04/2025 2:00 PM RENAL DIALYSIS RN Lab [facility] [address] [id number] Lab, Cc Ofandrea Iron deficiency anemia 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 therapy; Other acute pulmonary embolism without acute cor pulmonale 06/04/2025 1:15 PM RENAL DIALYSIS RN Office Visit [facility] [address] [address] Marc Mcnair MD Iron deficiency anemia 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 therapy (Primary Dx); Other acute pulmonary embolism without acute cor pulmonale 06/04/2025 Travel 04/24/2025 Results Follow-Up [facility] [address] [address] Mariya Robles, LIP CUTTER AND SCORER, FLASHER ADJUSTER COMP. METABOLIC PANEL [id number] [place], IRON AND TIBC [id number] [place], FERRITIN [id number] [place], Additional followed-up results: 3 04/23/2025 1:15 PM CDT Clinical Support [facility] [address] [address] Nurse, Cc Of[place]on B12 deficiency (Primary Dx); Other acute pulmonary embolism without acute cor pulmonale; Iron deficiency anemia, unspecified iron deficiency anemia type 04/23/2025 1:00 PM CDT Office Visit [facility] [address] [address] Mariya Robles, LIP CUTTER AND SCORER, FLASHER ADJUSTER Other acute pulmonary embolism without acute cor [...] Comments Blood Pressure 106/80 06/04/2025 1:02 PM RENAL DIALYSIS RN Pulse 88 06/04/2025 1:02 PM RENAL DIALYSIS RN Temperature 36.8 C (98.2 F) 06/04/2025 1:02 PM RENAL DIALYSIS RN Respiratory Rate 18 06/04/2025 1:02 PM RENAL DIALYSIS RN Oxygen Saturation 95% 06/04/2025 1:02 PM RENAL DIALYSIS RN Inhaled Oxygen Concentration - - Weight 84.6 kg (186 lb 9.6 oz) 06/04/2025 1:02 P M RENAL DIALYSIS RN Height 149.9 cm (4' 11) 06/04/2025 1:02 PM RENAL DIALYSIS RN Body Mass Index 37.69 06/04/2025 1:02 PM RENAL DIALYSIS RN Plan of Treatment Upcoming Encounters Date Type Department Care Team (Late st Contact Info) Description 09/03/2025 1:15 PM RENAL DIALYSIS RN Office Visit [facility] [address] [phone] Marc Mcnair MD [address] [place] [address] Health Maintenance Due Date Last [...] 04/23/2025 1:18 PM CDT B12 deficiency FOLATE [id number] [place] Routine 04/23/2025 1:18 PM CDT B12 deficiency VITAMIN B12 [id number] [place] Routine 04/23/2025 1:18 PM CDT B12 deficiency FERRITIN [id number] [place] Routine 04/23/2025 1: 18 PM CDT B12 deficiency IRON AND TIBC [id number] [place] Routine 04/23/2025 1:18 PM CDT B12 deficiency COMP. METABOLIC PANEL [id number] [place] Routine 04/23/2025 1:18 PM CDT B12 deficiency from Last 3 Months Results * VITAMIN B12 [id number] [place] (04/23/2025 1:18 PM CDT) VITAMIN B12 613 232 - 1,245 PG/ML CANCER DAIRY POWDER MIXER OPERATOR [facility] 04/23/2025 1:18 PM CDT Narrative CANCER DAIRY POWDER MIXER OPERATOR [facility] - 04/24/2025 8:35 AM CDT TESTING PERFORMED AT: [] [facility], [address] [place] [address], [place], [address], PHONE: [phone], CONE RUNNER: REECE KOEHLER, PHD Mariya Robles APRN, FLASHER ADJUSTER LAB SEND OUTS F inal Result CANCER DAIRY POWDER MIXER OPERATOR [facility] [place] [address], * IRON AND TIBC [id number] [place] (04/23/2025 1:18 PM CDT) Iron Bind.Cap.(TIBC) 297 250 - 450 UG/DL CANCER DAIRY POWDER MIXER OPERATOR [facility] UIBC 242 131 - 425 UG/DL CANCER DAIRY POWDER MIXER OPERATOR [facility] Iron, Serum 55 27 - 159 UG/DL CANCER DAIRY POWDER MIXER OPERATOR [facility] Iron Saturation 19 15 - 55 % [facility] DAIRY POWDER MIXER OPERATOR [facility] 04/23/2025 1:18 PM CDT [facility] CANCER DAIRY POWDER MIXER OPERATOR [facility] - 04/24/2025 8:35 AM CDT TESTING PERFORMED AT: [] [facility], [address] [place], [address], PHONE: [phone], CONE RUNNER: REECE KOEHLER, PHD Mariya Robles APRN, FLASHER ADJUSTER LAB SEND OUTS F inal Result Performing Organization Address [facility] Co de Phone Number CANCER DAIRY POWDER MIXER OPERATOR [facility] [place] [address], * FOLATE [id number] [place] (04/23/2025 1:18 PM CDT) Folate (Folic Acid), Serum 5.5 >3.0 NG/ML [facility] DAIRY POWDER MIXER OPERATOR [facility] Comment: A SERUM FOLATE CONCENTRATION OF LESS THAN 3.1 NG/ML IS CONSIDERED TO REPRESENT CLINICAL DEFICIENCY. 04/23/2025 1:18 PM CDT [facility] DAIRY POWDER MIXER OPERATOR [facility] - 04/24/2025 10:08 AM CDT TESTING PERFORMED AT: [] [facility], [address] [place] [address], [address], PHONE: [phone], CONE RUNNER: REECE KOEHLER, PHD Mariya Robles APRN, FLASHER ADJUSTER LAB SEND OUTS F inal Result Performing Organization Address [facility] Co de Phone Number CANCER DAIRY POWDER MIXER OPERATOR [facility] [place] [address], * (ABNORMAL) FERRITIN [id number] [place] (04/23/2025 1:18 PM CDT) Ferritin, Serum 167(H) 15 - 150 NG/ML CANCER DAIRY POWDER MIXER OPERATOR [facility] 04/23/2025 1:18 PM CDT Narrative [facility] - 04/24/2025 1:08 PM CDT TESTING PERFORMED AT: [] [facility], [address] [place] [address], [place], [address], PHONE: [phone], CONE RUNNER: REECE KOEHLER, PHD Mariya Robles APRN, FLASHER ADJUSTER LAB SEND OUTS F inal Result CANCER DAIRY POWDER MIXER OPERATOR [facility] [place] [address], * (ABNORMAL) COMP. METABOLIC PANEL [id number] [place] (04/23/2025 1:18 PM CDT) GLUCOSE, SERUM 80 70 - 99 MG/DL [facility] BUN 9 6 - 24 MG/DL [facility] CREATININE, SERUM 0.73 0.57 - 1.00 MG/DL [facility] EGFR 105 >59 ML/MIN/1.7 3 [facility] DAIRY POWDER [facility]ER [facility] BUN/CREATININE RATIO 12 9 - 23 [facility] SODIUM, SERUM 141 134 - 144 MMOL/L [facility] POTASSIUM, SERUM 3.4(L) 3.5 - 5.2 MMOL/L [facility] CHLORIDE, SERUM 105 96 - 106 MMOL/L [facility] CARBON DIOXIDE, TOTAL 22 20 - 29 MMOL/L [facility] CALCIUM, SERUM 9.0 8.7 - 10.2 MG/DL [facility] PROTEIN, TOTAL, SERUM 6.8 6.0 - 8.5 G/DL [facility] ALBUMIN, SERUM 4.3 3.9 - 4.9 G/DL [facility] GLOBULIN, TOTAL 2.5 1.5 - 4.5 G/DL [facility] BILIRUBIN, TOTAL 0.3 0.0 - 1.2 MG/DL [facility] DAIRY POWDER [facility]IXER [facility] ALKALINE PHOSPHATASE, S 61 41 - 116 IU/L CANCER DAIRY POWDER MIXER OPERATOR [facility] AST (SGOT) 9 0 - 40 IU/L CANCER DAIRY POWDER MIXER OPERATOR [facility] ALT (SGPT) 12 0 - 32 IU/L CANCER DAIRY POWDER MIXER OPERATOR [facility] 04/23/2025 1:18 PM CDT Narrative CANCER DAIRY POWDER MIXER OPERATOR [facility] - 04/24/2025 7:08 AM CDT TESTING PERFORMED AT: [] [facility], [address] [place] [address], [address], PHONE: [phone], CONE RUNNER: REECE KOEHLER, PHD us Mariya Robles APRN, FLASHER ADJUSTER LAB SEND OUTS F inal Result CANCER DAIRY POWDER MIXER OPERATOR [facility] [place] [address], * (ABNORMAL) CBC WITH AUTO DIFF [place] (04/23/2025 1:18 PM CDT) WBC 9.6 4.0 - 10.0 10*3/uL CANCER DAIRY POWDER MIXER OPERATOR [facility] HGB 10.7(L) 11.2 - 15.7 g/dL CANCER DAIRY POWDER MIXER OPERATOR [facility] HCT 33.2(L) 34.1 - 44.9 % CANCER DAIRY POWDER MIXER OPERATOR [facility] PLT 476(H) 163 - 369 10*3/uL CANCER DAIRY POWDER MIXER OPERATOR [facility] MPV 8.2(L) 9.4 - 12.4 fL CANCER DAIRY POWDER MIXER OPERATOR [facility] RBC 3.77(L) 3.93 - 5.22 10*6/uL CANCER DAIRY POWDER MIXER OPERATOR [facility] MCV 88 79 - 95 fL CANCER DAIRY POWDER MIXER OPERATOR [facility] MCH 28.4 25.6 - 32.2 pg CANCER DAIRY POWDER MIXER OPERATOR [facility] MCHC 32.2 32.2 - 36.5 g/dL CANCER DAIRY POWDER MIXER OPERATOR [facility] RDW 15.2(H) 11.6 - 14.4 % CANCER DAIRY POWDER MIXER OPERATOR [facility] Neutrophils % 64.7 36.0 - 66.0 % CANCER DAIRY POWDER MIXER OPERATOR [facility] Lymphocytes % 27.9 19.0 - 40.0 % CANCER DAIRY POWDER MIXER OPERATOR [facility] Monocytes % 6.0 4.1 - 12.1 % CANCER DAIRY POWDER MIXER OPERATOR [facility] Eosinophils % 0.6 0.0 - 3.5 % CANCER DAIRY POWDER MIXER OPERATOR [facility] Basophils % 0.2 0.0 - 1.0 % CANCER DAIRY POWDER MIXER OPERATOR [facility] Absolute Neutrophils 6.2 1.4 - 6.6 10*3/uL CANCER DAIRY POWDER MIXER OPERATOR [facility] Absolute Lymphocytes 2.7 0.8 - 4.0 10*3/uL CANCER DAIRY POWDER MIXER OPERATOR [facility] Absolute Monocytes 0.6 0.2 - 1.2 10*3/uL CANCER DAIRY POWDER MIXER OPERATOR [facility] Absolute Eosinophils 0.1 0.0 - 0.4 10*3/uL CANCER DAIRY POWDER MIXER OPERATOR [facility] Absolute Basophils 0.0 0.0 - 0.1 10*3/uL CANCER DAIRY POWDER MIXER OPERATOR [facility] 04/23/2025 1:18 PM CDT us Mariya Robles LIP CUTTER AND SCORER, FLASHER ADJUSTER LAB SEND OUTS F inal Result CANCER DAIRY POWDER MIXER OPERATOR [facility] [address] [place] [address], from Last 3 Months Insurance MEDICAID [employer] Care Teams Archival Records Clerk Relationship Specialty Start Date End Date Boogie Cavazos PAC [address] [place] [address] PCP - General Family Medicine 05/18/21 Marc Mcnair MD [address] [place] [address] Consulting Physician Oncology 05/18/21 Rachel Basurto MD [address] [facility] [address] [place] [address] Endocrinology 10/04/22
== END 2025-06-27 23:35 | disposition left against medical advice (07) ==
LOC: ANHED 23:19
PROVIDERS: PCP Nurse Practitioner Family
DX: M25.572 Pain in left ankle and joints of left foot (principal)
CPT/HCPCS: 99199